=== PATIENT | male | born 1950 | race Caucasian/White ===

== ENCOUNTER 2017-09-02 08:21 | Day surgery (SDC) | payer OTHER ==
[2017-09-02] MEDS ORDERED: NA CHLORIDE 0.9% 1,000 ML ONE (08:40)
[2017-09-02] MEDS ORDERED: PROPOFOL 200 MG/20 ML VIAL IV ONE ×2 (10:16)
[2017-09-02] MEDS ORDERED: LIDOCAINE 1% MPF 2 ML AMPULE ONE (10:16)
--- NOTE | 2017-09-02 12:17 | ENDO RPT ---
[address], [address] COLONOSCOPY PROCEDURE REPORT EXAM DATE: 09/02/2017 PATIENT NAME: Jeff Medeiros MR #: [id number] BIRTHDATE: 1950 ATTENDING: Hank Gallegos DR STATUS: outpatient RECREATION LEADER: Teddy Sharma and Araceli Sage RN INDICATIONS: The patient is a 67 yr old Male here for a colonoscopy due to colon cancer screening PROCEDURE PERFORMED: Colonoscopy with biopsy MEDICATIONS: Per Anesthesia. ESTIMATED BLOOD LOSS: None CONSENT: The patient understands the risks and benefits of the procedure and understands that these risks include, but are not limited to: sedation, allergic reaction, infection, perforation and/or bleeding. Alternative means of evaluation and treatment include, among others: physical exam, x-rays, and/or surgical intervention. The patient elects to proceed with this endoscopic procedure. DESCRIPTION OF PROCEDURE: During intra-op preparation period all mechanical medical equipment was checked for proper function. Hand hygiene and appropriate measures for infection prevention was taken. Procedure, possible complications, alternatives including, but not limited to possibility of bleeding, perforation, tear, infection, sepsis, need for surgery, need for blood transfusion, were explained to the patient. After the risks, benefits and alternatives of the procedure were thoroughly explained, Informed consent was verified, confirmed and timeout was successfully executed by the treatment team. The patient was placed in the left lateral position. A digital rectal exam was performed and revealed internal hemorrhoids. After appropriate level of anesthesia, the scope was passed. The EC-[id number] ([id number]) endoscope was introduced through the anus and advanced to the cecum, which was identified by the ileocecal valve. The quality of the prep was fair. The instrument was then slowly withdrawn as the colon was fully examined. Scope withdrawal time was 10 minutes. COLON FINDINGS: Severe diverticulosis was noted in the sigmoid colon. No bleeding was noted from the diverticulosis. Was found petechiae and in the sigmoid colon. A biopsy was performed using cold forceps. Retroflexed views revealed no abnormalities. The scope was then completely withdrawn from the patient and the procedure terminated. ADVERSE EVENTS: There were no complications. IMPRESSIONS: Severe diverticulosis was noted in the sigmoid colon RECOMMENDATIONS: 1. await biopsy results 2. avoid NSAIDS for 2 weeks 3. follow-up: office 2 week(s) 4. yearly hemoccult starting in 4 years 5. increase dietary water 6. low fiber / diverticular diet RECALL: Return in 5 year(s) for Colonoscopy, pending biopsy results. Hank Gallegos DR eSigned: Hank Gallegos DR 09/02/2017 10:49 AM cc: CPT CODES: ICD9 CODES: PATIENT NAME: Jeff Medeiros MR#: [id number]
== END 2017-09-02 11:17 | disposition home or self-care (01) ==
LOC: OR 08:21
PROVIDERS: ATTEND Surgery
PROC: 0DBE8ZX Excision of Large Intestine, Via Natural or Artificial Opening Endoscopic, Diagnostic (ICD-10-PCS; principal; 2017-09-02 10:30)
DX: Z12.11 Encounter for screening for malignant neoplasm of colon (principal); I10 Essential (primary) hypertension; E11.9 Type 2 diabetes mellitus without complications; Z79.84 Long term (current) use of oral hypoglycemic drugs; E78.00 Pure hypercholesterolemia, unspecified; N40.1 Benign prostatic hyperplasia with lower urinary tract symptoms; K57.30 Diverticulosis of large intestine without perforation or abscess without bleeding
CPT/HCPCS: 45380; 82962; 88305; J2001; J7030

== ENCOUNTER 2019-09-02 10:57 | Emergency (ER) | payer OTHER ==
--- NOTE | 2019-09-02 12:02 | ER ---
Nurse's Notes [facility] Name: Jeff Medeiros Age: 69 yrs Sex: Male : 1950 Arrival Date: 09/02/2019 Time: 11:01 Bed 5 Private MD: Diagnosis: Gastrointestinal hemorrhage, unspecified-UPPER GI BLEED;Type 2 diabetes mellitus Presentation: 09/01 11:00 Chief complaint: EMS states: he started having black stools on Tuesday and today started sv having dizziness and generalized weakness when standing. On EMS arrival, pt stood up and got cool and clammy. 20G L wrist and NS bolus 300 mls given en route. When pt stood up SBP was in the 90s and when laying in their stretcher SBP was 140s. BS-311 BP 127/73 HR-102 SR-AFib, RR-18 98% RA. Coronavirus screen: Patient denies a cough. Patient denies shortness of breath or difficulty breathing. Patient denies measured and/or subjective temperature greater than 100.4F prior to today's visit. Patient denies travel on a cruise ship or to a country the [facility] currently lists as an affected area. Patient denies contact with known and/or suspected case of COVID-19. Proceed with normal triage. Patient instructed to continue to wear a mask when interacting with others. Patient moved to private room, placed in contact and droplet isolation with eye protection until further assessment. Ebola Screen: No symptoms or risks identified at this time. Risk Assessment: Do you want to hurt yourself or someone else? Patient reports no desire to harm self or others. Onset of symptoms was August 31, 2019. 11:00 Method Of Arrival: EMS: [facility] sv 11:00 Acuity: SHARON 2 sv 11:00 Initial Sepsis Screen: Does the patient meet any 2 criteria? HR > 90 bpm. No. Patient's sv initial sepsis screen is negative. Does the patient have a suspected source of infection? No. Patient's initial sepsis screen is negative. Triage Assessment: 11:00 General: Appears in no apparent distress. comfortable, well groomed, well developed, sv Behavior is calm, cooperative, appropriate for age. Neuro: Level of Consciousness is awake, alert, obeys commands, Oriented to person, place, time, situation, Moves all extremities. Full function. Cardiovascular: Patient's skin is warm and dry. Rhythm is sinus tachycardia. Respiratory: Airway is patent Respiratory effort is even, unlabored, Respiratory pattern is regular, symmetrical. GI: Abdomen is round Reports black stools. Derm: Skin is pale. Historical: - Allergies: 11: No Known Allergies; sv - Home Meds: 11:22 Metformin Oral [Active]; losartan oral oral [Active]; rosuvastatin oral oral [Active]; sv - PMHx: 11: Diabetes - NIDDM; sv - Immunization history:: Adult Immunizations. - Family history:: not pertinent. - Social history:: Smoking status: Patient denies any tobacco usage or history of. Screenin:24 Abuse screen: Denies threats or abuse. Denies injuries from another. Nutritional sv screening: No deficits noted. Tuberculosis screening: No symptoms or risk factors identified. Fall Risk None identified. Assessment: 12:30 Reassessment: Patient appears in no apparent distress at this time. No changes from sv previously documented assessment. Patient and/or family updated on plan of care and expected duration. Pain level reassessed. Patient is alert, oriented x 3, equal unlabored respirations, skin warm/dry/pink. 14:00 Reassessment: Patient appears in no apparent distress at this time. No changes from sv previously documented assessment. Patient and/or family updated on plan of care and expected duration. Pain level reassessed. Patient is alert, oriented x 3, equal unlabored respirations, skin warm/dry/pink. 15:36 Reassessment: Patient appears in no apparent distress at this time. No changes from sv previously documented assessment. Patient and/or family updated on plan of care and expected duration. Pain level reassessed. Patient is alert, oriented x 3, equal unlabored respirations, skin warm/dry/pink. 16:12 Reassessment: Patient appears in no apparent distress at this time. No changes from sv previously documented assessment. Patient and/or family updated on plan of care and expected duration. Pain level reassessed. Patient is alert, oriented x 3, equal unlabored respirations, skin warm/dry/pink. Report given to Mateus from EMS. Vital Signs: 11:00 BP 121 / 84; Pulse 102 MON; Resp 16; Temp 98; Pulse Ox 99% on R/A; sv 12:00 BP 131 / 76; Pulse 103 MON; Resp 15; Pulse Ox 100% on R/A; sv 12:45 BP 126 / 71; Pulse 99; Resp 16; Pulse Ox 100% on R/A; sv 13:30 BP 132 / 75; Pulse 96; Resp 16; Pulse Ox 99% on R/A; sv 14:44 BP 128 / 79; Pulse 99 MON; Resp 18; Pulse Ox 99% on R/A; sv 15:36 BP 130 / 73; Pulse 96; Resp 16; Pulse Ox 100% ; sv 11:00 Sinus tachycardia sv 12:00 Sinus tachycardia sv 12:45 Sinus tachycardia sv 13:30 Sinus tachycardia sv 14:44 Sinus Rhythm sv ED Course: 11:00 Maintain EMS IV. Dressing intact. Site clean \T\ dry. Gauge \T\ site: 20G L wrist. sv 11:01 Patient arrived in ED. ss 11:03 Travon Tristan MD is Attending Physician. kris 11:05 EKG done, by ED staff, reviewed by Travon Tristan MD. sv 11:17 Odilia Hong RN is Primary Nurse. sv 11:22 Triage completed. sv 11:23 Arm band placed on. sv 11:23 Patient has correct armband on for positive identification. Placed in gown. Bed in low sv position. Call light in reach. Side rails up X 1. 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 Pulse ox on. NIBP on. Door closed. Head of bed elevated. 11:45 Initial lab(s) drawn, by me, sent to lab. T\T\S collected, blood band applied to patient. sv Inserted saline lock: 18 gauge in right antecubital area, using aseptic technique. Blood collected. Flushed right antecubital with 5 ml normal saline. 12:11 XRAY Chest (1 view) Sent. sv 12:37 XRAY Chest (1 view) In Process Unspecified. EDMS 14:44 transfer approval from receiving facility. sv 15:35 No provider procedures requiring assistance completed. Patient transferred, IV remains sv in place. intact. Administered Medications: 12:32 Drug: ProTONIX 80 mg Route: IVP; Site: left wrist; sv 13:00 Follow up: Response: No adverse reaction sv 12:32 Drug: ProTONIX 8 mg/hr Route: IV; Rate: 25 ml/hr; Site: left wrist; sv 16:13 Follow up: Response: No adverse reaction; IV Status: Infusion continued upon transfer sv 12:32 Drug: NS 0.9% 500 ml Route: IV; Rate: bolus; Site: left wrist; sv 13:00 Follow up: Response: No adverse reaction; IV Status: Completed infusion; IV Intake: sv 500ml 12:32 Drug: NS 0.9% 1000 ml Route: IV; Rate: 125 ml/hr; Site: left wrist; sv 16:13 Follow up: Response: No adverse reaction; IV Status: Infusion continued upon transfer sv 14:00 Drug: Vitamin K1 10 mg Route: Sub-Q; Site: right upper arm; sv 14:30 Follow up: Response: No adverse reaction sv Intake: 13:00 IV: 500ml; Total: 500ml. sv Outcome: 12:01 ER care complete, transfer ordered by . kris 15:35 Transferred by [facility] to [facility], Transfer form completed. sv X-rays sent w/ patient. Note: Report given to Cecilia RIVERS 15:35 Condition: stable 15:35 Instructed on the need for transfer. 16:28 Patient left the ED. sv Signatures: Dispatcher [employer] EDOdilia Clemente RN RN Travon Garcia MD MD cha Smirch, Shelby, RN RN ss Corrections: (The following items were deleted from the chart) 15:35 11:00 BP 121 / 84; Pulse 102bpm; Monitor: Sinus tachycardiaResp 16bpm; Pulse Ox 99% RA; sv sv
--- NOTE | 2019-09-02 12:02 | EDPHYS ---
Physician Documentation [facility] Name: Jeff Medeiros Age: 69 yrs Sex: Male : 1950 Arrival Date: 09/02/2019 Time: 11:01 Bed 5 Private MD: ED Physician Travon Tristan HPI: 09/01 11:53 This 69 yrs old Male presents to ER via EMS with complaints of Rectal kris Bleeding. 11:53 The patient presents to the emergency department with bleeding from the rectum/anus, kris that is moderate. Onset: The symptoms/episode began/occurred 3 day(s) ago. Context: the patient has no known special context relating to the rectal area complaint(s). Modifying factors: The symptoms are alleviated by remaining still, The symptoms are aggravated by movement, sitting position. Associate signs and symptoms: Pertinent positives:. The patient has not experienced similar symptoms in the past. 11:54 The patient presents to the emergency department with rectal bleeding, melena. kris Abdominal pain: none is appreciated. Modifying factors: The symptoms are alleviated by remaining still, supine position, the symptoms are aggravated by movement. The patient presents with dizziness, feeling faint, generalized weakness. Context: occurred at home. Modifying factors: The symptoms are alleviated by lying down, the symptoms are aggravated by standing up. Associated signs and symptoms: Pertinent positives: near-syncope. Severity of symptoms: At their worst the symptoms were moderate in the emergency department the symptoms are unchanged. Associated signs and symptoms: Pertinent positives: dizziness when standing, shortness of breath. Historical: - Allergies: 11:22 No Known Allergies; sv - Home Meds: 11:22 Metformin Oral [Active]; losartan oral oral [Active]; rosuvastatin oral oral [Active]; sv - PMHx: 11:22 Diabetes - NIDDM; sv - Immunization history:: Adult Immunizations. - Family history:: not pertinent. - Social history:: Smoking status: Patient denies any tobacco usage or history of. ROS: 11:56 Constitutional: Negative for fever, chills, and weight loss, Eyes: Negative for injury, kris pain, redness, and discharge, ENT: Negative for injury, pain, and discharge, Neck: Negative for injury, pain, and swelling, Cardiovascular: Negative for chest pain, palpitations, and edema, Respiratory: Negative for shortness of breath, cough, wheezing, and pleuritic chest pain, Back: Negative for injury and pain, : Negative for injury, bleeding, discharge, and swelling, MS/Extremity: Negative for injury and deformity, Skin: Negative for injury, rash, and discoloration, Psych: Negative for depression, anxiety, suicide ideation, homicidal ideation, and hallucinations, Allergy/Immunology: Negative for hives, rash, and allergies, Endocrine: Negative for neck swelling, polydipsia, polyuria, polyphagia, and marked weight changes, Hematologic/Lymphatic: Negative for swollen nodes, abnormal bleeding, and unusual bruising. 11:56 Abdomen/GI: Positive for black/tarry stool. 11:56 Neuro: Positive for dizziness, near syncope, weakness. Exam: 11:56 Constitutional: This is a well developed, well nourished patient who is awake, alert, kris and in no acute distress. Head/Face: Normocephalic, atraumatic. ENT: Nares patent. No nasal discharge, no septal abnormalities noted. Tympanic membranes are normal and external auditory canals are clear. Oropharynx with no redness, swelling, or masses, exudates, or evidence of obstruction, uvula midline. Mucous membranes moist. Neck: Trachea midline, no thyromegaly or masses palpated, and no cervical lymphadenopathy. Supple, full range of motion without nuchal rigidity, or vertebral point tenderness. No Meningismus. Chest/axilla: Normal chest wall appearance and motion. Nontender with no deformity. No lesions are appreciated. Respiratory: Lungs have equal breath sounds bilaterally, clear to auscultation and percussion. No rales, rhonchi or wheezes noted. No increased work of breathing, no retractions or nasal flaring. Back: No spinal tenderness. No costovertebral tenderness. Full range of motion. Male : Normal genitalia with no discharge or lesions. MS/ Extremity: Pulses equal, no cyanosis. Neurovascular intact. Full, normal range of motion. Neuro: Awake and alert, GCS 15, oriented to person, place, time, and situation. Cranial nerves II-XII grossly intact. Motor strength 5/5 in all extremities. Sensory grossly intact. Cerebellar exam normal. Normal gait. Psych: Awake, alert, with orientation to person, place and time. Behavior, mood, and affect are within normal limits. 11:56 Eyes: Conjunctiva: pale, bilaterally. 11:56 Cardiovascular: Rate: tachycardic, Rhythm: regular, Heart sounds: normal, normal S1and S2, no S3 or S4, no murmur, no rub, no gallop, JVD: is not appreciated. 11:56 Abdomen/GI: Inspection: distension, obese Bowel sounds: normal, Palpation: abdomen is soft and non-tender, Rectal exam: Prostate: normal, rectal tone normal, Stool: guaiac positive, black, hemorrhoid(s), are not appreciated, mass, is not appreciated, swelling, is not appreciated, tenderness, is not appreciated, fecal impaction, is not appreciated, the exam is chaperoned by the nurse, Liver: no appreciated palpable abnormalities, Hernia: not appreciated. Vital Signs: 11:00 BP 121 / 84; Pulse 102 MON; Resp 16; Temp 98; Pulse Ox 99% on R/A; sv 12:00 BP 131 / 76; Pulse 103 MON; Resp 15; Pulse Ox 100% on R/A; sv 12:45 BP 126 / 71; Pulse 99; Resp 16; Pulse Ox 100% on R/A; sv 13:30 BP 132 / 75; Pulse 96; Resp 16; Pulse Ox 99% on R/A; sv 14:44 BP 128 / 79; Pulse 99 MON; Resp 18; Pulse Ox 99% on R/A; sv 15:36 BP 130 / 73; Pulse 96; Resp 16; Pulse Ox 100% ; sv 11:00 Sinus tachycardia sv 12:00 Sinus tachycardia sv 12:45 Sinus tachycardia sv 13:30 Sinus tachycardia sv 14:44 Sinus Rhythm sv MDM: 11:03 Patient medically screened. [facility] 11:59 Data reviewed: vital signs, nurses notes, lab test result(s), EKG, radiologic studies, kris plain films. 12:40 Differential diagnosis: gastritis, diverticulitis, hemorrhagic shock, varices. kris Differential diagnosis: generalized weakness, GI bleed, hypovolemia, idiopathic dizziness, near-syncope, syncope. Data interpreted: equipment monitor phototypesetting: rate is 102 beats/min, rhythm is regular, Pulse oximetry: on room air is 99 %. Test interpretation: by ED physician or midlevel provider: ECG, plain radiologic studies. Counseling: I had a detailed discussion with the patient and/or guardian regarding: the historical points, exam findings, and any diagnostic results supporting the discharge/admit diagnosis, the presence of at least one elevated blood pressure reading (>120/80) during this emergency department visit, lab results, radiology results, the need to transfer to another facility, for higher level of care, [facility] does not immediately have the required specialist. ED course: STABLE, WEAK, BLACK STOOLS 3 DAYS, NEAR SYNCOPE. 09/01 11:23 Order name: Basic Metabolic Panel; Complete Time: 12:33 09/01 11:23 Order name: CBC with Diff; Complete Time: 12:33 09/01 11:23 Order name: Hepatic Function; Complete Time: 12:33 09/01 11:23 Order name: Lipase; Complete Time: 12:33 09/01 11:25 Order name: Type And Screen 09/01 11:52 Order name: Magnesium; Complete Time: 13:23 [facility] 09/01 11:52 Order name: NT PRO-BNP; Complete Time: 13:23 [facility] 09/01 11:52 Order name: PT-INR; Complete Time: 12:33 [facility] 09/01 11:52 Order name: Troponin (emerg Dept Use Only); Complete Time: 13:23 [facility] 09/01 11:52 Order name: XRAY Chest (1 view); Complete Time: 13:23 [facility] 09/01 11:59 Order name: Packed RBC Leukored [facility] 09/01 12:46 Order name: ABO/RH no charge; Complete Time: 13:23 [facility] 09/01 15:23 Order name: Occult Blood--Ancillary 09/01 11:23 Order name: IV Saline Lock; Complete Time: 11:25 09/01 11:23 Order name: Labs collected and sent; Complete Time: 12: 09/01 11:52 Order name: EKG; Complete Time: 11:55 [facility] 09/01 11:52 Order name: Cardiac monitoring; Complete Time: 12: [facility] 09/01 11:52 Order name: EKG - Nurse/Tech; Complete Time: 12: [facility] 09/01 11:52 Order name: O2 Per Protocol; Complete Time: 12: [facility] 09/01 11:52 Order name: O2 Sat Monitoring; Complete Time: 12: [facility] 09/01 12:02 Order name: IV Saline Lock - Large Bore; Complete Time: 12:11 [facility] Administered Medications: 12:32 Drug: ProTONIX 80 mg Route: IVP; Site: left wrist; sv 13:00 Follow up: Response: No adverse reaction sv 12:32 Drug: ProTONIX 8 mg/hr Route: IV; Rate: 25 ml/hr; Site: left wrist; sv 16:13 Follow up: Response: No adverse reaction; IV Status: Infusion continued upon transfer sv 12:32 Drug: NS 0.9% 500 ml Route: IV; Rate: bolus; Site: left wrist; sv 13:00 Follow up: Response: No adverse reaction; IV Status: Completed infusion; IV Intake: sv 500ml 12:32 Drug: NS 0.9% 1000 ml Route: IV; Rate: 125 ml/hr; Site: left wrist; sv 16:13 Follow up: Response: No adverse reaction; IV Status: Infusion continued upon transfer sv 14:00 Drug: Vitamin K1 10 mg Route: Sub-Q; Site: right upper arm; sv 14:30 Follow up: Response: No adverse reaction sv Disposition: 09/02/19 12:01 Transfer ordered to [facility]. Diagnosis are Gastrointestinal hemorrhage, unspecified - UPPER GI BLEED, Type 2 diabetes mellitus. - Reason for transfer: Higher level of care. - Accepting physician is TO [facility]. - Condition is Fair. - Problem is new. - Symptoms have improved. Signatures: Dispatcher [employer] Odilia Martinez RN RN sv Anderson, Corey, MD MD cha Corrections: (The following items were deleted from the chart) 16:28 12:01 09/02/2019 12:01 Transfer ordered to [facility]. sv Diagnosis is Gastrointestinal hemorrhage, unspecified - UPPER GI BLEED; Type 2 diabetes mellitus. Reason for transfer: Higher level of care. Accepting physician is TO [facility]. Condition is Fair. Problem is new. Symptoms have improved. kris
[2019-09-02] MEDS ORDERED: PANTOPRAZOLE 40 MG INJ ONE (12:13)
[2019-09-02] MEDS ORDERED: NA CHLORIDE 0.9% 1,000 ML ONE (12:13)
[2019-09-02 12:21] LABS: Absolute Lymphocytes (CBC) 2.2 K/uL (0.7-4.9); Basophils % 0.3 % (0-1.3); Hematocrit 27.1 % (39.6-49.0); Lymphocytes % 18.6 % (15.3-44.8); MPV 9.1 fL (7.6-11.3); Protime INR 1.13; RBC Red Blood Cell Count 3.02 M/uL (4.33-5.43)
[2019-09-02 12:32] LABS: ALT/SGPT 36 U/L (12-78); AST/SGOT 10 U/L (15-37); Albumin 3.4 g/dL (3.4-5.0); Alkaline Phosphatase 61 U/L (45-117); BUN Blood Urea Nitrogen 62 mg/dL (7-18); Bicarbonate 22 mmol/L (21-32); Bilirubin Direct < 0.1 mg/dL (0-0.2); Bilirubin Total 0.2 mg/dL (0.2-1.0); Glucose Level 313 mg/dL (74-106); Lipase 54 U/L (73-393); Potassium 4.1 mmol/L (3.5-5.1); Protein, Total 6.2 g/dL (6.4-8.2); Sodium Level 140 mmol/L (136-145)
[2019-09-02 12:35] LABS: Magnesium 2.3 mg/dL (1.8-2.4); Troponin (Emerg Dept Use Only) 0.02 ng/mL (0.0-0.045)
--- NOTE | 2019-09-02 12:41 | RAD REPORT ---
EXAM DESCRIPTION: RAD - Chest Single View - 09/02/2019 12:31 pm CLINICAL HISTORY: COUGH Chest pain. COMPARISON: No comparisons FINDINGS: Portable technique limits examination quality. The lungs are grossly clear. The heart is normal in size. No displaced fractures. IMPRESSION: No acute intrathoracic process suspected.
[2019-09-02] MEDS ORDERED: PANTOPRAZOLE INJ 80 MG in NA CHLORIDE 0.9% 250 ML IV SCH (13:00)
[2019-09-02] MEDS ORDERED: VITAMIN K (ADULT) 10 MG/ML ONE (14:04)
[2019-09-02 16:59] VITALS: TEMP 98
[2019-09-02 17:05] VITALS: BP 130/73; O2SAT 100
== END 2019-09-02 16:28 | disposition short-term general hospital (02) ==
LOC: ER 10:57
DX: K92.2 Gastrointestinal hemorrhage, unspecified (principal); E11.9 Type 2 diabetes mellitus without complications
CPT/HCPCS: 96365; 93005; 85025; 80048; 36415; 86900; 83735; 86850; 85610; 86901; 80076; 82272; 84484; 83690; 83880; 71045; 96372; 99285; 96366; J3430; C9113; J7050; J7030

== ENCOUNTER 2020-06-09 12:33 | Observation (INO) | payer OTHER ==
--- OUTSIDE RECORDS SUMMARY | 2020-06-09 12:37 | XMS REPORT | Continuity of Care Document ---
:1950 Author Organization [facility] t Address [facility] Maria. [address] [place] [id number] Care Team Providers Name Role Phone Romel Coy Primary Care Physician Brigitte Taylor MD Attending Clinician Rufus MERRILL Attending Clinician Fausto MERRILL Attending Clinician Anegla Hernandez MD Attending Clinician Julio Morales MD Attending Clinician Arnol MERRILL, Arnol Loyd Attending Clinician Bethany Scott MD Attending Clinician Angel Pizarro MD Attending Clinician BRIGITTE TAYLOR Attending Clinician Unavailable RUFUS Admitting Clinician Unavailable Payers Payer Name Policy Type Policy Effective Date Expiration Date Sour ce Number MEDICAREMEDICARE A [id number] 2017 DIANE Molina [id number] 2017-P 00:00:00 - [facility] [id number] 2019 DIANE Li SUPPLEMENT/INDIVIDUALG 00:00:00 - Medical [facility] MEDICARE Center [id number]/2019-PresentMedigap Problems Condition Condition Condition Status Onset Resolution Last Treating Co mments Source Name Details Category Date Date Treatment Clinician Date GIB GIB Disease Active DIANE Diez (gastroint (gastroint 7-19 [place] [facility] - estinal estinal 00:00: Medical bleeding) bleeding) 00 Cent er Type 2 Type 2 Disease Active [facility] diabetes diabetes 09-01 [facility] - mellitus mellitus 00:00: Medica l without without 00 Center complicati complicati on, on, without without long-term long-term current current use of use of insulin insulin Essential Essential Disease Active [facility] hypert[facility]i hypertensi 09-01 [place] [facility] - on on 00:00: Medical 00 Center Coronary Coronary Disease Active [facility] artery artery 09[facility]01 [facility] - disease disease 00:00: Medical involving involving 00 [facility] [place] coronary coronary artery of artery of [place] heart heart without without angina angina pectoris pectoris Allergies, Adverse Reactions, Alerts Allergy Allergy Status Severity Reaction(s) Onset Inactive Treating Comm ents Source Name Type Date Date Clinician Tramadol Propensi Active Anxiety [facility] ty to [facility]01 [facility] - adverse 00:00: Medical reaction 00 Center s Social History Social Habit Start Date Stop Date Quantity Comments Source Sex Assigned At [facility] Tobacco use and 2019-09-04 2019-09-04 Never used [facility] - exposure 00:00:00 00:00:00 [facility] Alcohol intake 2019-09-04 2019-09-04 Current drinker [facility] S oswald [facility] - 00:00:00 00:00:00 of alcohol [facility] Center (finding) Smoking Status Start Date Stop Date Source Former smoker 2019-09-04 00:00:00 2019-09-04 00:00:00 [facility] Medications Ordered Filled Start Stop Current Ordering Indication Dosage Frequency Signature Comments Components Source Medication Medication Date Date Medication? Clinician (SIG) Name Name aspirin 81 Yes 81mg QD Take [address] MG EC 7-22 by mouth [facility] - tablet 12:57: daily. Medical 11 [place] metFORMIN Yes 1000mg Take 1,[address] (GLUCOPHAGE 7-22 mg by [facility]ukes - ) 1000 MG 12:57: mouth Medical tablet 11 daily with Center dinner. losartan Yes 100mg QD Take [address] (COZAAR) 7-22 mg by [facility] - 100 MG 12:57: mouth Medical tablet 11 daily. [place] rosuvastati Yes 10mg QD Take [address] n (CRESTOR) 7-22 by mouth Luke s - 10 MG 12:57: daily. Medical tablet 11 [place] acetaminoph 2020-0 Yes 1{tbl} Take [address] en-codeine 7-22 tablet by Luke s - (TYLENOL 12:57: mouth Medical #3) 300-30 11 every 6 Center mg per (six) tablet hours as needed for Pain (back pain). diphenhydrA 2020-0 Yes insomnia 1{tbl} Take 1 [facility] MINE-acetam 7-22 tablet by Norma es - inophen 12:57: mouth Medical (TYLENOL 11 every Center PM) 25-500 night as mg Tab needed. b complex 2020-0 Yes 1{tbl} QD Take 1 [facility] vitamins 7-22 tablet by [facility] - tablet 12:57: mouth Medical 11 daily. [place] omega-3 2020-0 Yes 2g QD Take 2 g [facility] fatty 7-22 by mouth [facility] - acids-fish 12:57: daily. Medic al oil 11 [place] 340-1,000 mg Cap per capsule cholecalcif 2019-0 Yes 5000U QD Take 5,000 [facility] louisa, 7-22 Units by [facility] - vitamin D3, 12:57: mouth Medic al 125 mcg 11 daily. [place] (5,000 unit) Tab pantoprazol 0 2020- No 40mg Q.5D Take 1 [facility] e 7-22 08-21 tablet (40 [facility] - (PROTONIX) 00:00: 23:59 mg total) M edical 40 MG 00 :00 by mouth 2 Center tablet (two) times daily for 30 days. Vital Signs Vital Name Observation Time Observation Value Comments Source Systolic blood 2019-09-05 11:49:00 152 mm[Hg] [facility] pressure [facility] Diastolic blood 2019-09-05 11:49:00 57 mm[Hg] [facility] t [facility] Heart rate 2019-09-05 11:49:00 84 /min [facility] L [facility] Respiratory rate 2019-09-05 11:49:00 18 /min [facility] Oxygen saturation in 2019-09-05 11:49:00 98 /min [facility] - Arterial blood by Medical Ce nter Pulse oximetry Body temperature 2019-09-05 07:53:00 37.22 Fariba [facility] Body height 2019-09-02 17:58:00 177.8 cm [facility] Body weight 2019-09-02 17:58:00 108.863 kg [facility] BMI 2019-09-02 17:58:00 34.44 kg/m2 [facility] Procedures Procedure Date / Time Performed Performing Clinician Agueda e RHYTHM STRIP - SCAN 2019-09-07 15:40:27 Provider, Default [facility] RHYTHM STRIP - SCAN 2019-09-07 14:52:11 Provider, [facility] TRANSFUSION SERVICE 2019-09-06 18:03:47 Provider, [facility] - REPORT - SCAN Scanning [facility] REPORT OF PROCEDURE - 2019-09-06 15:21:05 Provider, [facility] ENDOSCOPY SCAN [facility] RHYTHM STRIP - SCAN 2019-09-06 15:20:51 Provider, [facility] PREPARE LEUKO-REDUCED RBC 2019-09-05 23:54:00 Antonino Lambert [facility] TRANSFUSION SERVICE 2019-09-05 18:04:39 Provider, [facility] REPORT - SCAN [facility] REPORT OF PROCEDURE - 2019-09-05 13:20:53 Alok garcia [facility] ENDOSCOPY [facility] POCT-GLUCOSE METER 2019-09-05 11:53:00 Antonino Lambert [facility] POCT-GLUCOSE METER 2019-09-05 08:04:00 Antonino Lambert [facility] TYPE AND SCREEN, 2019-09-05 04:06:[address] [facility] s AUTOMATED [facility] CBC W/PLT COUNT & AUTO 2019-09-05 04:06:00 DIANE Hooper [facility] BASIC METABOLIC PANEL (7) 2019-09-05 04:06:00 IGNACIO Hooper I [facility] PREPARE LEUKO-REDUCED RBC 2019-09-04 23:54:00 IGNACIO Hooper I [facility] POCT-GLUCOSE METER 2019-09-04 21:27:00 Antonino Lambert [facility] HEMOGLOBIN AND HEMATOCRIT 2019-09-04 19:26:00 Antonino Lambert [facility] TRANSFUSION SERVICE 2019-09-04 18:13:33 Provider, Default [facility] - REPORT - SCAN [facility] UPPER 2019-09-04 17:14:00 Alok Ambrose [facility] - ENDOSCOPY,ULTRASOUND [facility] ter POCT-GLUCOSE METER 2019-09-04 16:12:00 Antonino Lambert [facility] TRANSFUSE LEUKO-REDUCED 2019-09-04 14:35:47 Rufus [facility] - RED BLOOD CELLS [facility] POCT-GLUCOSE METER 2019-09-04 12:12:00 Antonino Lambert [facility] POCT-GLUCOSE METER 2019-09-04 08:00:00 Antonino Lambert [facility] CBC W/PLT COUNT & AUTO 2019-09-04 06:08:00 DIANE Hooper S t rosibel - DIFFERENTIAL [facility] BASIC METABOLIC PANEL (7) 2019-09-04 06:08:00 IGNACIO Hooper I [facility] CT ABDOMEN/PELVIS WITH IV 2019-09-04 03:53:00 Veronica Mccloud [facility] POCT-GLUCOSE METER 2019-09-04 01:02:00 Antonino Lambert [facility] REPORT OF PROCEDURE - 2019-09-03 18:05:44 Karen Scott [facility] ENDOSCOPY [facility] TRANSFUSION SERVICE 2019-09-03 18:02:07 Provider, Default [facility] - REPORT - SCAN [facility] HEMOGLOBIN AND HEMATOCRIT 2019-09-03 14:23:00 Antonino Lambert [facility] POCT-GLUCOSE METER 2019-09-03 13:56:00 Antonino Lambert [facility] UPPER ENDOSCOPY,BIOPSY 2019-09-03 13:11:00 Karen Scott [facility] CBC W/PLT COUNT & AUTO 2019-09-03 05:50:00 [facility] t [facility] - DIFFERENTIAL [facility] BASIC METABOLIC PANEL (7) 2019-09-03 05:50:00 IGNACIO Hooper I [facility] ABORH, MANUAL 2019-09-03 00:42:00 Arnaldo Betty Dora [facility] HEMOGLOBIN A1C 2019-09-03 00:42:00 [facility] POCT-[facility]SE METER 2019-09-02 23:52:00 [facility] TYPE AND SCREEN, 2019-09-02 22:46:[address] [facility] s AUTOMATED [facility] CBC W/PLT COUNT & AUTO 2019-09-02 22:46:00 LizbethSophia [facility] t [facility] - DIFFERENTIAL [facility] COMPREHENSIVE METABOLIC 2019-09-02 22:46:00 [facility] PANEL [facility] PROTHROMBIN TIME/INR 2019-09-02 22:46:00 [facility] MAGNESIUM 2019-09-02 22:46:00 [facility] TROPONIN I 2019-09-02 22:46:00 [facility] B-TYPE NATRIURETIC FACTOR 2019-09-02 22:46:00 Rufus Kenroy [facility] (BNP) [facility] SARS-COV2/RT-PCR ([facility] & 2019-09-02 19:23:00 Tammy Taylor C [facility] - REF LABS) [facility] Plan of Care Planned Activity Planned Date Details Comments Source Future Scheduled 2020-03-[address] [place] [facility] - Test 00:00:00 [facility] (procedure) [code = 90663816] Future Scheduled 2019-10-16 INFLUENZA VACCINE (#1) [facility] - Test 00:00:00 [code = INFLUENZA Medical Ce nter VACCINE (#1)] Future Scheduled 2018-05-[address] [facility] - Test 00:00:00 WELLNESS (YEAR 2 or Medical Center FIRST YEAR if no IPPE) [code = MEDICARE ANNUAL WELLNESS (YEAR 2 or FIRST YEAR if no IPPE)] Future Scheduled 2017 PNEUMOCOCCAL 65+ YRS [facility] - Test 00:00:00 (1 of 1 - Medical Center [id number] PCV13) [code = PNEUMOCOCCAL 65+ YRS (1 of 1 - [id number] PCV13)] Future Scheduled 1962 DIABETIC EYE EXAM [facility] - Test 00:00:00 [code = DIABETIC EYE Medical Center EXAM] Future Scheduled [address] [facility] - Test 00:00:00 examination Medical Center (regime/therapy) [code = 025195457] Future Scheduled 1962 Urine screening for [facility] - Test 00:00:00 protein (procedure) Medical Center [code = 238416448] Future Scheduled [address] - Test 00:00:00 malignant neoplasm of [facility] colon (procedure) [code = 761471459] Results Test Description Test Time Test Comments Results Result Comments Source Prepare Leuko-Red RBC 2019-09-05 23:54:00 Test Item Value Reference Range Interpretation Comme nts CROSSMATCH (test code = 2264) COMPATIBLE Unit ABO (test code = 6526955) A Pos UNIT NUMBER (test code = 934-0) [id number] Status (test code = 2378762) [place]_TIMEINCHART Blood Bank Product (test code = 2263) RED BLOOD CELLS PRODUCT CODE (test code = 933-2) [id number] [facility] [id number] 12:04:00 Test Item Value Reference Range Interpretation Comments POC-Glucose Meter (test 223 mg/dL 70-110 H : TE STED AT [facility] code = 1538) [address] [place], [address]: Assistant Branch Manager/Techni sree ID = [id number] for FAISAL BREEN Lab Interpretation (test Abnormal code = 84961-8) [facility] [id number] 12:04:00 Test Item Value Reference Range Interpretation Comments POC-GLUCOSE METER 223 mg/dL 70-110 H : TESTED A T [facility] 6720 (BEAKER) (test code = [place] [address], 1538) [address]: Assistant Branch Manager/Techni sree ID = [id number] for FAISAL MONDRAGON POCT-GLUCOSE [id number] 08:15:00 Test Item Value Reference Range Interpretation Comments POC-GLUCOSE METER 141 mg/dL 70-110 H : TESTED A T [facility] 6720 (BEAKER) (test code = TOMI [facility], 1538) [address]: Assistant Branch Manager/Techni sree ID = [id number] for NG JENNIFER, YAMILETH CBC with platelet count + automated [id number] 05:50:00 Test Item Value Reference Range Interpretation Comments WBC (test code = 6690-2) 5.7 See_Comment [A utomated message] The system [employer] generated this result transmitted ref erence range: 3.5 - 10 .5 K/L. The refe rence range was not u sed to interpret this result as normal/abnor mal. RBC (test code = 789-8) 2.46 See_Comment L [Au tomated message] The system [employer] generated this result transmitted ref erence range: 4.63 - 6 .08 M/L. The refe rence range was not u sed to interpret this result as normal/abnor mal. MCHC (test code = 786-4) 33.9 See_Comment L [A utomated message] The system [employer] generated this result transmitted ref erence range: 32.3 - 3 6.5 GM/DL. The refe rence range was not u sed to interpret this result as normal/abnor mal. Hematocrit (test code = 22.4 % 40.1-51 L 4544-3) MCV (test code = 787-2) 91.1 fL 79-92.2 MCH (test code = 785-6) 30.9 pg 25.7-32.2 RDW (test code = 788-0) 14.3 % 11.6-14.4 Platelets (test code = 145 See_Comment L [Aut omated message] 777-3) The system [employer] generated this result transmitted ref erence range: 150 - 45 0 K/CU MM. The referen ce range was not u sed to interpret this result as normal/abnor mal. MPV (test code = 10.5 fL 9.4-12.4 35818-8) nRBC (test code = 413) 1 See_Comment H [Aut omated message] The system [employer] generated this result transmitted ref erence range: 0 - 0 /1 00 WBC. The refere nce range was not u sed to interpret this result as normal/abnor mal. % Neutros (test code = 60 % 429) % Lymphs (test code = 27 % 430) % Monos (test code = 8 % 431) % Eos (test code = 432) 4 % % Baso (test code = 437) 0 % # Neutros (test code = 3.39 See_Comment [Aut omated message] 670) The system [employer] generated this result transmitted ref erence range: 1.78 - 5 .38 K/L. The refe rence range was not u sed to interpret this result as normal/abnor mal. # Lymphs (test code = 1.52 See_Comment [Auto mated message] 414) The system [employer] generated this result transmitted ref erence range: 1.32 - 3 .57 K/L. The refe rence range was not u sed to interpret this result as normal/abnor mal. # Monos (test code = 0.43 See_Comment [Autom ated message] 415) The system [employer] generated this result transmitted ref erence range: 0.30 - 0 .82 K/L. The refe rence range was not u sed to interpret this result as normal/abnor mal. # Eos (test code = 416) 0.25 See_Comment [Au tomated message] The system [employer] generated this result transmitted ref erence range: 0.04 - 0 .54 K/L. The refe rence range was not u sed to interpret this result as normal/abnor mal. # Baso (test code = 417) 0.02 See_Comment [A utomated message] The system [employer] generated this result transmitted ref erence range: 0.01 - 0 .08 K/L. The refe rence range was not u sed to interpret this result as normal/abnor mal. Immature 1 % 0-1 Granulocytes-Relative (test code = 2801) Lab Interpretation (test Abnormal code = 95902-2) [facility] W/PLT COUNT & AUTO [id number] 05:50:00 Test Item Value Reference Range Interpretation Comments WHITE BLOOD CELL COUNT (BEAKER) 5.7 K/ L 3.5-10.5 (test code = 775) RED BLOOD CELL COUNT (BEAKER) 2.46 M/ L 4.63-6.08 L (test code = 761) HEMOGLOBIN (BEAKER) (test code = 7.6 GM/DL 13.7-17.5 L 410) HEMATOCRIT (BEAKER) (test code = 22.4 % 40.1-51.0 L 411) MEAN CORPUSCULAR VOLUME (BEAKER) 91.1 fL 79.0-92.2 (test code = 753) MEAN CORPUSCULAR HEMOGLOBIN 30.9 pg 25.7-32.2 (BEAKER) (test code = 751) MEAN CORPUSCULAR HEMOGLOBIN CONC 33.9 GM/DL 32.3-36.5 (BEAKER) (test code = 752) RED CELL DISTRIBUTION WIDTH 14.3 % 11.6-14.4 (BEAKER) (test code = 412) PLATELET COUNT (BEAKER) (test 145 K/CU MM 150-450 L code = 756) MEAN PLATELET VOLUME (BEAKER) 10.5 fL 9.4-12.4 (test code = 754) NUCLEATED RED BLOOD CELLS 1 /100 WBC 0-0 H (BEAKER) (test code = 413) NEUTROPHILS RELATIVE PERCENT 60 % (BEAKER) (test code = 429) LYMPHOCYTES RELATIVE PERCENT 27 % (BEAKER) (test code = 430) MONOCYTES RELATIVE PERCENT 8 % (BEAKER) (test code = 431) EOSINOPHILS RELATIVE PERCENT 4 % (BEAKER) (test code = 432) BASOPHILS RELATIVE PERCENT 0 % (BEAKER) (test code = 437) NEUTROPHILS ABSOLUTE COUNT 3.39 K/ L 1.78-5.38 (BEAKER) (test code = 670) LYMPHOCYTES ABSOLUTE COUNT 1.52 K/ L 1.32-3.57 (BEAKER) (test code = 414) MONOCYTES ABSOLUTE COUNT (BEAKER) 0.43 K/ L 0.30-0.82 (test code = 415) EOSINOPHILS ABSOLUTE COUNT 0.25 K/ L 0.04-0.54 (BEAKER) (test code = 416) BASOPHILS ABSOLUTE COUNT (BEAKER) 0.02 K/ L 0.01-0.08 (test code = 417) IMMATURE GRANULOCYTES-RELATIVE 1 % 0-1 PERCENT (BEAKER) (test code = 2801) Type and screen, [id number] 05:41:00 Test Item Value Reference Range Interpretation Comments ABO/RH AUTOMATED (BEAKER) (test A POSITIVE code = 2260) Ab Scrn (test code = 890-4) NEGATIVE [facility] Metabolic [id number] 05:18:00 Test Item Value Reference Range Interpretation Comments Sodium (test code = 141 meq/L 918-456 6248-2) Potassium (test code = 3.5 meq/L 3.5-5.1 2823-3) Chloride (test code = 110 meq/L 98-107 H 2075-0) CO2 (test code = 25 meq/L 22-29 2028-9) BUN (test code = 17 mg/dL 7-21 3094-0) Creatinine (test code 0.71 mg/dL 0.57-1.25 = 2160-0) Glucose (test code = 179 mg/dL 70-105 H 2345-7) Calcium (test code = 7.8 mg/dL 8.4-10.2 L 42228-8) EGFR (test code = 111 mL/min/1[place] [address]-9) NOT ACCURATE CREATININE CLEARANCE IN PREDICTING GLOMERULAR FILTRATION RATE . ESTIMATED GFR I S NOT APPLICABLE FOR DIALYSIS PATIENTS. IZABEL (test code = IZABEL) Assistant Branch Manager ID - [id number] Lab Interpretation Abnormal (test code = 20428-5) [facility] METABOLIC [id number] 05:18:00 Test Item Value Reference Range Interpretation Comments SODIUM (BEAKER) 141 meq/L 136-145 (test code = 381) POTASSIUM (BEAKER) 3.5 meq/L 3.5-5.1 (test code = 379) CHLORIDE (BEAKER) 110 meq/L 98-107 H (test code = 382) CO2 (BEAKER) (test 25 meq/L 22-29 code = 355) BLOOD UREA NITROGEN 17 mg/dL 7-21 (BEAKER) (test code = 354) CREATININE (BEAKER) 0.71 mg/dL 0.57-1.25 (test code = 358) GLUCOSE RANDOM 179 mg/dL 70-105 H (BEAKER) (test code = 652) CALCIUM (BEAKER) 7.8 mg/dL 8.4-10.2 L (test code = 697) EGFR (BEAKER) (test 111 mL/min/1.73 ESTIM ATED GFR IS code = 1092) sq m NOT ACCURATE CREATININE CLEARANCE IN PREDICTING GLOMERULAR FILTRATION RATE . ESTIMATED GFR I S NOT APPLICABLE FOR DIALYSIS PATIEN TS. Assistant Branch Manager ID - EDASIPOCT-GLUCOSE [id number] 21:38:00 Test Item Value Reference Range Interpretation Comments POC-GLUCOSE METER 116 mg/dL 70-110 H : TESTED A T [facility] 6720 (BEAKER) (test code = [facility] [employer] [facility], 1538) [address]: Assistant Branch Manager/Techni sree ID = [id number] for SONAM IQBAL TTE Hemoglobin and [id number] 19:34:00 Test Item Value Reference Range Interpretation Comments Hemoglobin (test code 7.9 See_Comment L [Auto mated = 786-4) message] The system which generated this result transmit ron reference range : 13.7 - 17.5 GM/ DL. The reference range was not u sed to interpret th is result as normal/abnormal . Hematocrit (test code 23.2 % 40.1-51 L = 4544-3) IZABEL (test code = IZABEL) Assistant Branch Manager ID - [id number] Lab Interpretation Abnormal (test code = 45222-2) [facility]MO[facility] AND [id number] 19:34:00 Test Item Value Reference Range Interpretation Comments HEMOGLOBIN (BEAKER) (test code = 7.9 GM/DL 13.7-17.5 L 410) HEMATOCRIT (BEAKER) (test code = 23.2 % 40.1-51.0 L 411) Assistant Branch Manager ID - [id number]-GLUCOSE [id number] 16:23:00 Test Item Value Reference Range Interpretation Comments POC-GLUCOSE METER 140 mg/dL 70-110 H : TESTED A T [facility] 6720 (BEAKER) (test code = [facility] [employer] [facility], 1538) 811[address]: Assistant Branch Manager/Techni sree ID = [id number] for CRISTY YUSUF POCT-GLUCOSE [id number] 12:22:00 Test Item Value Reference Range Interpretation Comments POC-GLUCOSE METER 154 mg/dL 70-110 H : TESTED A Oswald [facility] 6720 (ANIBAL) (test code = [place], 1538) 615[address]: Assistant Branch Manager/Techni sree ID = [id number] for COLLEEN ARAGON CT, [id number] 10:48:00FINAL REPORT TECHNIQUE: CT of the abdomen and pelvis WITH intravenous contrast and WITHOUT oral contrast. Dose modulation, iterative reconstruction, and/or weight-based adjustment of the mA/kV was utilized to reduce the radiation dose to as low as reasonably achievable. INDICATION: GI bleedabnormal gastric submucosal lesion on EGD, evaluate for other abnormal abdominal pathology. COMPARISON: None. FINDINGS: LOWER THORAX: A right middle lobe pulmonary nodule measures 0.4 cm onaxial image 1. A left lower lobe or nodule on coronal image 59 measures 0.4 cm. A left lower lobe point nodule on coronal image 65 measures 0.3 cm. No routine follow-up imaging is recommended. HEPATOBILIARY: No focal hepatic lesions. Gallbladder is unremarkable. No biliary ductal dilatation.SPLEEN: Nosplenomegaly.PANCREAS: No focal masses or ductal dilatation. ADRENALS: A left adrenal nodule measures 1.9 cm.KIDNEYS/URETERS: No hydronephrosis, stones, or masses. Left lower pole some renal cyst measures up to 2.17 m. No routine follow-up imaging is recommended.PELVIC ORGANS/BLADDER: Unremarkable. PERITONEUM/RETROPERITONEUM: No free air or fluid.LYMPH NODES: No lymphadenopathy.VESSELS: Mild aortoiliac calcification. GI TRACT: There is either surgical or endoscopic material near the gastroesophagealjunction, likely due to a prior fundoplication. A questionable rounded area has fluid density internally and measures 2.6 cm. Severe diverticulosis of the sigmoid colon. The appendix is normal. BONES AND SOFT TISSUES: A right iliac bone sclerotic lesion as a nurse in the transition, appears nonaggressive, and measures 1 cm. This is most consistent with a bone island. Moderate degenerative disc changes of the lumbar spine. IMPRESSION: 1.Prior fundoplication. A rounded area adjacent to the fundoplication has a cystic density and measures 2.6 cm. This could be a portion of the known submucosal mass. 2.A left adrenal nodule measures 1.9 cm and is probably an adenoma. Follow-up CT of the abdomen with and without intravenous contrast, adrenal mass protocol, is recommended in one year to document stability. Signed: Lorenzo Winter MDReport Verified Date/Time: 09/04/2019 10:48:51 Reading Location: [facility] C013X Ortho Consult Reading Room CT abdomen/pelvis with IV contrast 2019-09-04 10:48:00Interface, External Ris In - 09/04/2019 10:51 AM CDTFINAL REPORT TECHNIQUE: CT of the abdomen and pelvis WITH intravenous contrast and WITHOUT oral contrast. Dose modulation, iterative reconstruction, and/or weight-based adjustment of the mA/kV was utilized to reduce the radiation dose to as low as reasonably achievable. INDICATION: GI bleedabnormal gastric submucosal lesion onEGD, evaluate for other abnormal abdominal pathology. COMPARISON: None. FINDINGS: LOWER THORAX: A right middle lobe pulmonary nodule measures 0.4 cm on axial image 1. A left lower lobe or nodule on coronal image 59 measures 0.4 cm. A left lower lobe point nodule on coronal image 65 measures 0.3 cm. No routine follow-up imaging is recommended. HEPATOBILIARY: No focal hepatic lesions. Gallbladder is unremarkable. No biliary ductal dilatation.SPLEEN: No splenomegaly.PANCREAS: No focal masses or ductal dilatation. ADRENALS: A left adrenal nodule measures 1.9 cm.KIDNEYS/URETERS: No hydronephrosis, stones, or masses. Left lower pole some renal cyst measures up to 2.17 m. No routine follow-up imaging isrecommended.PELVIC ORGANS/BLADDER: Unremarkable. PERITONEUM/RETROPERITONEUM: No free air or fluid.LYMPH NODES: No lymphadenopathy.VESSELS: Mild aortoiliac calcification. GI TRACT: There is either surgical or endoscopic material near the gastroesophageal junction, likely due to a prior fundoplication. A questionable rounded area has fluid density internally and measures 2.6 cm. Severe diverticulosis of the sigmoid colon. The appendix is normal. BONES AND SOFT TISSUES: A right iliac bone sclerotic lesion as a nurse in the transition, appears nonaggressive, and measures 1 cm. This is most consistent with a bone island. Moderate degenerative disc changes of the lumbar spine. IMPRESSION: 1.Prior fundoplication. A rounded area adjacent to the fundoplication has a cystic density and measures 2.6 cm. This could be a portion of the known submucosal mass. 2.A left adrenal nodule measures 1.9 cm and is probably an adenoma. Follow-up CT of the abdomen with and without intravenous contrast, adrenal mass protocol, is recommended in one year to document stability. Signed: Lorenzo Winter MDReport Verified Date/Time: 09/04/2019 10:48:51 Reading Location: [address] Ortho Consult Reading [facility] [id number] 08:11:00 Test Item Value Reference Range Interpretation Comments POC-GLUCOSE METER 152 mg/dL 70-110 H : TESTED A T [facility] 6720 (BEAKER) (test code = [facility] [place], 1538) [address]: Assistant Branch Manager/Techni sree ID = [id number] for COLLEEN ARAGON BASIC METABOLIC [id number] 07:32:00 Test Item Value Reference Range Interpretation Comments SODIUM (BEAKER) 139 meq/L 136-145 (test code = 381) POTASSIUM (BEAKER) 3.5 meq/L 3.5-5.1 (test code = 379) CHLORIDE (BEAKER) 111 meq/L 98-107 H (test code = 382) CO2 (BEAKER) (test 25 meq/L 22-29 code = 355) BLOOD UREA NITROGEN 19 mg/dL 7-21 (BEAKER) (test code = 354) CREATININE (BEAKER) 0.73 mg/dL 0.57-1.25 (test code = 358) GLUCOSE RANDOM 163 mg/dL 70-105 H (BEAKER) (test code = 652) CALCIUM (BEAKER) 7.6 mg/dL 8.4-10.2 L (test code = 697) EGFR (BEAKER) (test 107 mL/min/1.73 ESTIM ATED GFR IS code = 1092) sq m NOT ACCURATE CREATININE CLEARANCE IN PREDICTING GLOMERULAR FILTRATION RATE . ESTIMATED GFR I S NOT APPLICABLE FOR DIALYSIS PATIEN TS. Assistant Branch Manager ID - LMCBC W/PLT COUNT & AUTO [id number] 07:10:00 Test Item Value Reference Range Interpretation Comments WHITE BLOOD CELL COUNT (BEAKER) 6.5 K/ L 3.5-10.5 (test code = 775) RED BLOOD CELL COUNT (BEAKER) 2.13 M/ L 4.63-6.08 L (test code = 761) HEMOGLOBIN (BEAKER) (test code = 6.6 GM/DL 13.7-17.5 L 410) HEMATOCRIT (BEAKER) (test code = 19.6 % 40.1-51.0 L 411) MEAN CORPUSCULAR VOLUME (BEAKER) 92.0 fL 79.0-92.2 (test code = 753) MEAN CORPUSCULAR HEMOGLOBIN 31.0 pg 25.7-32.2 (BEAKER) (test code = 751) MEAN CORPUSCULAR HEMOGLOBIN CONC 33.7 GM/DL 32.3-36.5 (BEAKER) (test code = 752) RED CELL DISTRIBUTION WIDTH 14.8 % 11.6-14.4 H (BEAKER) (test code = 412) PLATELET COUNT (BEAKER) (test 141 K/CU MM 150-450 L code = 756) MEAN PLATELET VOLUME (BEAKER) 10.1 fL 9.4-12.4 (test code = 754) NUCLEATED RED BLOOD CELLS 0 /100 WBC 0-0 (BEAKER) (test code = 413) NEUTROPHILS RELATIVE PERCENT 42 % (BEAKER) (test code = 429) LYMPHOCYTES RELATIVE PERCENT 47 % (BEAKER) (test code = 430) MONOCYTES RELATIVE PERCENT 7 % (BEAKER) (test code = 431) EOSINOPHILS RELATIVE PERCENT 2 % (BEAKER) (test code = 432) BASOPHILS RELATIVE PERCENT 1 % (BEAKER) (test code = 437) NEUTROPHILS ABSOLUTE COUNT 2.70 K/ L 1.78-5.38 (BEAKER) (test code = 670) LYMPHOCYTES ABSOLUTE COUNT 3.03 K/ L 1.32-3.57 (BEAKER) (test code = 414) MONOCYTES ABSOLUTE COUNT (BEAKER) 0.46 K/ L 0.30-0.82 (test code = 415) EOSINOPHILS ABSOLUTE COUNT 0.14 K/ L 0.04-0.54 (BEAKER) (test code = 416) BASOPHILS ABSOLUTE COUNT (BEAKER) 0.03 K/ L 0.01-0.08 (test code = 417) IMMATURE GRANULOCYTES-RELATIVE 1 % 0-1 PERCENT (BEAKER) (test code = 2801) POCT-GLUCOSE [id number] 01:13:00 Test Item Value Reference Range Interpretation Comments POC-GLUCOSE METER 118 mg/dL 70-110 H : TESTED A T B[facility] 6720 (BEAKER) (test code = TOM[facility], 1538) 49975: Assistant Branch Manager/Techni sree ID = [id number] for SONAM IQBAL TTVinny HEMOGLOBIN AND [id number] 14:34:00 Test Item Value Reference Range Interpretation Comments HEMOGLOBIN (BEAKER) (test code = 7.2 GM/DL 13.7-17.5 L 410) HEMATOCRIT (BEAKER) (test code = 21.3 % 40.1-51.0 L 411) Assistant Branch Manager ID - 6000POCT-GLUCOSE [id number] 14:08:00 Test Item Value Reference Range Interpretation Comments POC-GLUCOSE METER 159 mg/dL 70-110 H : [facility] (test code = [facility] Maximo [facility], 1538) 55766: Assistant Branch Manager/Techni sree ID = [id number] for DOROTA SOLANO Hemoglobin [id number] 08:25:00 Test Item Value Reference Range Interpretation Comments Hemoglobin A1C (test code = 4548-4) 7.1 % 4.3-6.1 H Lab Interpretation (test code = Abnormal 93619-9) [facility] [id number] 08:25:00 Test Item Value Reference Range Interpretation Comments HEMOGLOBIN A1C (BEAKER) (test code = 7.1 % 4.3-6.1 H 368) SARS-CoV2/RT-PCR (Asymptomatic ONLY)2019-09-03 07:16:00 Test Item Value Reference Range Interpretation Comments SARS-COV2/RT-PCR Negative Not Detected, (test code = Negative 78662-2) SARS-COV-2 [facility] PERFORMING LAB (test code = 97369-7) IZABEL (test code = Negative results do not IZABEL) preclude SARS-CoV-2 infection and should not be used as the sole basis for patient management decisions. Negative results must be combined with clinical observations, patient history, and epidemiological information. A false negative result may occur if a specimen is improperly collected, transported or handled. The limit of detection for this assay is 250 copies/mL. This SARS CoV-2 test is a rapid, real-time RT-PCR test intended for the qualitative detection of nucleic acid from SARS-CoV-2 in a nasopharyngeal swab specimen collected from individuals suspected of COVID-19 by their healthcare provider. This test has not been Food and Drug Administration (FDA) cleared or approved and has been authorized by FDA under an Emergency Use Authorization (EUA). This EUA will be effective until the declaration that circumstances exist justifying the authorization of the emergency use of in vitro diagnostic tests for detection and/or diagnosis of COVID-19 is terminated under Section 564(b)(2) of the Act or the EUA is revoked under Section 564(g) of the Act. Fact Sheet for Healthcare Providers:https://www.Lysanda/Documents/Xper t%20Xpress%20SARS%20CoV- 2/Fact%20Sheets/302-3802 %06QZBR-BTE-8%20HEALTHCA RE%20PROVIDERS%20FACT%20 SHEET.pdf Fact Sheet for Healthcare Patients:https://www.[facility]/Documents/Xpert %20Xpress%20SARS%20CoV-2 /Fact%20Sheets/3023801% 31NHQV-APS-5%20PATIENT%2 0FACT%20SHEET.pdf Performing Laboratory:[facility] [place] [address].[place], [place] [address] [place], [place] [address]ARS-COV2/RT-PCR ([facility])2019-09-03 07:16:00 Test Item Value Reference Range Interpretation Comments SARS-COV2/RT-PCR (test code = Negative Not Detected, Negative 1657659) SARS-COV-2 PERFORMING LAB [facility] (test code = 7031484) Negative results do not preclude SARS-CoV-2 infection and should not be used as the sole basis for patient management decisions. Negative results must be combined with clinical observations, patient history, and epidemiological information. A false negative result may occur if a specimen is improperly collected, transported or handled.The limit of detection for this assay is 250 copies/mL.This SARS CoV-2 test is a rapid, real-time RT-PCR test intended for the qualitative detection of nucleic acid from SARS-CoV-2 in a nasopharyngeal swab specimen collected from individuals suspected of COVID-19 by their healthcare provider.This test has not been Food and Drug Administration (FDA) cleared or approved and has been authorized by FDA under an Emergency Use Authorization (EUA). This EUA will be effective until the declaration that circumstances exist justifying the authorization of the emergency use of in vitro diagnostic tests for detection and/or diagnosis of COVID-19 is terminated under Section 564(b)(2) of the Act or the EUA is revoked under Section 564(g) of the Act.Fact Sheet for Healthcare Pro viders:https://www.hoozin/Documents/Xpert%20Xpress%20SARS%20CoV-2/Fact%20Sh eets/302-3802%55BVZE-ZGH-6%20HEALTHCARE%20PROVIDERS%20FACT%20SHEET.pdfFact Sheet for Healthcare Patients:https://www.TeamLINKS/Documents/Xpert%20Xpress%20SARS%20CoV-2/Fact%20Sheets/302-3801%20SARS-COV -2%20PATIENT%20FACT%20SHEET.pdfPerforming Laboratory:[address], [place] [address]SVGMD METABOLIC [id number] 06:26:00 Test Item Value Reference Range Interpretation Comments SODIUM (BEAKER) 138 meq/L 136-145 (test code = 381) POTASSIUM (BEAKER) 3.8 meq/L 3.5-5.1 (test code = 379) CHLORIDE (BEAKER) 109 meq/L 98-107 H (test code = 382) CO2 (BEAKER) (test 23 meq/L 22-29 code = 355) BLOOD UREA NITROGEN 42 mg/dL 7-21 H (BEAKER) (test code = 354) CREATININE (BEAKER) 0.82 mg/dL 0.57-1.25 (test code = 358) GLUCOSE RANDOM 208 mg/dL 70-105 H (BEAKER) (test code = 652) CALCIUM (BEAKER) 7.9 mg/dL 8.4-10.2 L (test code = 697) EGFR (BEAKER) (test 94 mL/min/1.73 ESTIMA RON GFR IS code = 1092) sq m NOT ACCURATE CREATININE CLEARANCE IN PREDICTING GLOMERULAR FILTRATION RATE . ESTIMATED GFR I S NOT APPLICABLE FOR DIALYSIS PATIEN TS. Assistant Branch Manager ID - PIAYA LCBC W/PLT COUNT & AUTO [id number] 06:12:00 Test Item Value Reference Range Interpretation Comments WHITE BLOOD CELL COUNT (BEAKER) 11.9 K/ L 3.5-10.5 H (test code = 775) RED BLOOD CELL COUNT (BEAKER) 2.16 M/ L 4.63-6.08 L (test code = 761) HEMOGLOBIN (BEAKER) (test code = 6.7 GM/DL 13.7-17.5 L 410) HEMATOCRIT (BEAKER) (test code = 19.5 % 40.1-51.0 L 411) MEAN CORPUSCULAR VOLUME (BEAKER) 90.3 fL 79.0-92.2 (test code = 753) MEAN CORPUSCULAR HEMOGLOBIN 31.0 pg 25.7-32.2 (BEAKER) (test code = 751) MEAN CORPUSCULAR HEMOGLOBIN CONC 34.4 GM/DL 32.3-36.5 (BEAKER) (test code = 752) RED CELL DISTRIBUTION WIDTH 14.8 % 11.6-14.4 H (BEAKER) (test code = 412) PLATELET COUNT (BEAKER) (test 178 K/CU MM 150-450 code = 756) MEAN PLATELET VOLUME (BEAKER) 10.1 fL 9.4-12.4 (test code = 754) NUCLEATED RED BLOOD CELLS 0 /100 WBC 0-0 (BEAKER) (test code = 413) NEUTROPHILS RELATIVE PERCENT 59 % (BEAKER) (test code = 429) LYMPHOCYTES RELATIVE PERCENT 32 % (BEAKER) (test code = 430) MONOCYTES RELATIVE PERCENT 7 % (BEAKER) (test code = 431) EOSINOPHILS RELATIVE PERCENT 0 % (BEAKER) (test code = 432) BASOPHILS RELATIVE PERCENT 0 % (BEAKER) (test code = 437) NEUTROPHILS ABSOLUTE COUNT 7.02 K/ L 1.78-5.38 H (BEAKER) (test code = 670) LYMPHOCYTES ABSOLUTE COUNT 3.84 K/ L 1.32-3.57 H (BEAKER) (test code = 414) MONOCYTES ABSOLUTE COUNT (BEAKER) 0.85 K/ L 0.30-0.82 H (test code = 415) EOSINOPHILS ABSOLUTE COUNT 0.02 K/ L 0.04-0.54 L (BEAKER) (test code = 416) BASOPHILS ABSOLUTE COUNT (BEAKER) 0.04 K/ L 0.01-0.08 (test code = 417) IMMATURE GRANULOCYTES-RELATIVE 1 % 0-1 PERCENT (BEAKER) (test code = 2801) ANTIONE, [id number] 01:14:00 Test Item Value Reference Range Interpretation Comments ABO Grouping (test code = 2588) A Rh Factor (test code = 2589) POS [facility] [id number] 00:03:00 Test Item Value Reference Range Interpretation Comments POC-GLUCOSE METER 213 mg/dL 70-110 H : TESTED A T [facility] 6720 (BEAKER) (test code = [facility] [place], 1538) 10[address]: Assistant Branch Manager/Techni sree ID = [id number] for KAELA MCDUFFIE B-type Natriuretic Factor (BNP)2019-09-02 23:35:00 Test Item Value Reference Range Interpretation Comments BNP (test code = 11286-7) <10 0-100 IZABEL (test code = IZABEL) Assistant Branch Manager ID - WILBER L Lab Interpretation (test Normal code = 22337-0) [facility] CenterB-TYPE NATRIURETIC FACTOR (BNP)2019-09-02 23:35:00 Test Item Value Reference Range Interpretation Comments B-TYPE NATRIURETIC PEPTIDE (BEAKER) < pg/mL 0-100 (test code = 700) Assistant Branch Manager ID - WILBER LTroponin [id number] 23:29:00 Test Item Value Reference Range Interpretation Comments Troponin I (test code = 0.02 ng/mL 0-0.03 65132-6) IZABEL (test code = IZABEL) Troponin I (TnI) levels must be interpreted in the context of the presenting symptoms and the clinical findings. Elevated TnI levels indicate myocardial damage, but are not specific for ischemic heart disease. Elevated TnI levels are seen in patients with other cardiac conditions (including myocarditis and congestive heart failure), and slight TnI elevations occur in patients with other conditions, including sepsis, renal failure, acidosis, acute neurological disease, and persistent tachyarrhythmia.Opera tor ID - WILBER L Lab Interpretation (test Normal code = 76629-3) [facility] CenterTRMICHELLEN [id number] 23:29:00 Test Item Value Reference Range Interpretation Comments TROPONIN I (BEAKER) (test code = 0.02 ng/mL 0.00-0.03 397) Troponin I (TnI) levels must be interpreted in the context of the presenting symptoms and the clinical findings. Elevated TnI levels indicate myocardial damage, but are not specific for ischemic heart disease. Elevated TnI levels are seen in patients with other cardiac conditions (including myocarditis and congestive heart failure), and slight TnI elevations occur in patients with other conditions, including sepsis, renal failure, acidosis, acute neurological disease, and persistent tachyarrhythmia.Assistant Branch Manager ID - PIAYA LComprehensive metabolic [id number] 23:21:00 Test Item Value Reference Range Interpretation Comments Protein, Total (test 5.3 See_Comment L [Autom ated code = 2885-2) message] The system which generated this result transmit ron reference range : 6.0 - 8.3 gm/dL . The reference range was not u sed to interpret th is result as normal/abnormal . Albumin (test code = 3.5 g/dL 3.5-5 66582-7) Alkaline Phosphatase 51 U/L 40-150 (test code = 6768-6) Total Bilirubin (test 0.3 mg/dL 0.2-1.2 code = 1975-2) Sodium (test code = 137 meq/L 227-018 5465-2) Potassium (test code 3.8 meq/L 3.5-5.1 = 2823-3) Chloride (test code = 109 meq/L 98-107 H 2075-0) CO2 (test code = 21 meq/L 22-29 L 2028-9) BUN (test code = 49 mg/dL 7-21 H 3094-0) Creatinine (test code 0.87 mg/dL 0.57-1.25 = 2160-0) Glucose (test code = 225 mg/dL 70-105 H 2345-7) Calcium (test code = 8.1 mg/dL 8.4-10.2 L 62186-5) AST (test code = 13 U/L 5-34 1920-8) ALT (test code = 21 U/L 6-55 1742-6) EGFR (test code = 88 mL/min/1.73 [place] [address]-2) NOT ACCURATE CREATININE CLEARANCE IN PREDICTING GLOMERULAR FILTRATION RATE . ESTIMATED GFR I S NOT APPLICABLE FOR DIALYSIS PATIEN IZABEL (test code = IZABEL) Assistant Branch Manager ID - WILBER Hurtado Lab Interpretation Abnormal (test code = 64878-7) [facility] CenterMagnesium2020-07-19 23:21:00 Test Item Value Reference Range Interpretation Comments Magnesium (test code = 2.1 mg/dL 1.6-2.6 55987-2) IZABEL (test code = IZABEL) Assistant Branch Manager ID - WILBER L Lab Interpretation (test Normal code = 20304-0) [facility] CenterProthrombin time/[id number] 23:21:00 Test Item Value Reference Interpretation Comments Range Protime (test code = 15.0 See_Comment H [Autom ated 3972-2) message] The system which generated this result transmitted reference range : 11.9 - 14.2 seconds. The reference range was not used to interpret this result as normal/abnormal . INR (test code = 1.2 See_Comment [Automated 7381-6) message] The system which generated this result transmitted reference range : <=5.9. The reference range was not used to interpret this result as normal/abnormal . IZABEL (test code = Effective 07/12/2018: IZABEL) PT Reference Range ChangeNew: 11.9-14.2 Previous: 11.7-14.7 RECOMMENDED COUMADIN/WARFARIN INR THERAPY RANGESSTANDARD DOSE: 2.0-3.0 Includes: PROPHYLAXIS for venous thrombosis, systemic embolization; TREATMENT for venous thrombosis and/or pulmonary embolus.HIGH RISK: Target INR is 2.5-3.5 for patients wiht mechanical heart valves. Lab Interpretation Abnormal (test code = 19002-2) [facility] CenterMAGNESIUM2020-07-19 23:21:00 Test Item Value Reference Range Interpretation Comments MAGNESIUM (BEAKER) (test code = 2.1 mg/dL 1.6-2.6 627) Assistant Branch Manager ID - PIAYA LCOMPREHENSIVE METABOLIC [id number] 23:21:00 Test Item Value Reference Range Interpretation Comments TOTAL PROTEIN 5.3 gm/dL 6.0-8.3 L (BEAKER) (test code = 770) ALBUMIN (BEAKER) 3.5 g/dL 3.5-5.0 (test code = 1145) ALKALINE PHOSPHATASE 51 U/L 40-150 (BEAKER) (test code = 346) BILIRUBIN TOTAL 0.3 mg/dL 0.2-1.2 (BEAKER) (test code = 377) SODIUM (BEAKER) (test 137 meq/L 136-145 code = 381) POTASSIUM (BEAKER) 3.8 meq/L 3.5-5.1 (test code = 379) CHLORIDE (BEAKER) 109 meq/L 98-107 H (test code = 382) CO2 (BEAKER) (test 21 meq/L 22-29 L code = 355) BLOOD UREA NITROGEN 49 mg/dL 7-21 H (BEAKER) (test code = 354) CREATININE (BEAKER) 0.87 mg/dL 0.57-1.25 (test code = 358) GLUCOSE RANDOM 225 mg/dL 70-105 H (BEAKER) (test code = 652) CALCIUM (BEAKER) 8.1 mg/dL 8.4-10.2 L (test code = 697) AST (SGOT) (BEAKER) 13 U/L 5-34 (test code = 353) ALT (SGPT) (BEAKER) 21 U/L 6-55 (test code = 347) EGFR (BEAKER) (test 88 mL/min/1.73 ESTIMA RON GFR IS code = 1092) sq m NOT ACCURATE CREATININE CLEARANCE IN PREDICTING GLOMERULAR FILTRATION RATE . ESTIMATED GFR I S NOT APPLICABLE FOR DIALYSIS PATIEN TS. Assistant Branch Manager ID - PIAYA LPROTHROMBIN TIME/[id number] 23:21:00 Test Item Value Reference Range Interpretation Comments PROTIME (BEAKER) (test code = 15.0 seconds 11.9-14.2 H 759) INR (BEAKER) (test code = 370) 1.2 <=5.9 Effective 07/12/2018: PT Reference Range ChangeNew: 11.9-14.2 Previous: 11.7- 14.7RECOMMENDED COUMADIN/WARFARIN INR THERAPY RANGESSTANDARD DOSE: 2.0-3.0 Includes: PROPHYLAXIS for venous thrombosis, systemic embolization; TREATMENT for venous thrombosis and/or pulmonary embolus.HIGH RISK: Target INR is2.5-3.5 for patients wiht mechanical heart valves.CBC W/PLT COUNT & AUTO [id number] 23:10:00 Test Item Value Reference Range Interpretation Comments WHITE BLOOD CELL COUNT (BEAKER) 14.1 K/ L 3.5-10.5 H (test code = 775) RED BLOOD CELL COUNT (BEAKER) 2.40 M/ L 4.63-6.08 L (test code = 761) HEMOGLOBIN (BEAKER) (test code = 7.3 GM/DL 13.7-17.5 L 410) HEMATOCRIT (BEAKER) (test code = 21.5 % 40.1-51.0 L 411) MEAN CORPUSCULAR VOLUME (BEAKER) 89.6 fL 79.0-92.2 (test code = 753) MEAN CORPUSCULAR HEMOGLOBIN 30.4 pg 25.7-32.2 (BEAKER) (test code = 751) MEAN CORPUSCULAR HEMOGLOBIN CONC 34.0 GM/DL 32.3-36.5 (BEAKER) (test code = 752) RED CELL DISTRIBUTION WIDTH 14.6 % 11.6-14.4 H (BEAKER) (test code = 412) PLATELET COUNT (BEAKER) (test 224 K/CU MM 150-450 code = 756) MEAN PLATELET VOLUME (BEAKER) 10.5 fL 9.4-12.4 (test code = 754) NUCLEATED RED BLOOD CELLS 0 /100 WBC 0-0 (BEAKER) (test code = 413) NEUTROPHILS RELATIVE PERCENT 65 % (BEAKER) (test code = 429) LYMPHOCYTES RELATIVE PERCENT 26 % (BEAKER) (test code = 430) MONOCYTES RELATIVE PERCENT 8 % (BEAKER) (test code = 431) EOSINOPHILS RELATIVE PERCENT 0 % (BEAKER) (test code = 432) BASOPHILS RELATIVE PERCENT 0 % (BEAKER) (test code = 437) NEUTROPHILS ABSOLUTE COUNT 9.18 K/ L 1.78-5.38 H (BEAKER) (test code = 670) LYMPHOCYTES ABSOLUTE COUNT 3.70 K/ L 1.32-3.57 H (BEAKER) (test code = 414) MONOCYTES ABSOLUTE COUNT (BEAKER) 1.08 K/ L 0.30-0.82 H (test code = 415) EOSINOPHILS ABSOLUTE COUNT 0.00 K/ L 0.04-0.54 L (BEAKER) (test code = 416) BASOPHILS ABSOLUTE COUNT (BEAKER) 0.03 K/ L 0.01-0.08 (test code = 417) IMMATURE GRANULOCYTES-RELATIVE 1 % 0-1 PERCENT (BEAKER) (test code = 2801)
--- NOTE | 2020-06-09 13:26 | RAD REPORT ---
EXAM DESCRIPTION: [place] Single View06/09/2020 1:15 pm CLINICAL HISTORY: Chest pain COMPARISON: August 2019 FINDINGS: The lungs appear clear of acute infiltrate. The heart is normal size IMPRESSION: No acute abnormalities displayed
[2020-06-09 13:27] LABS: Absolute Lymphocytes (CBC) 2.2 K/uL (0.7-4.9); Hematocrit 44.4 % (39.6-49.0); Lymphocytes % 38.3 % (15.3-44.8); MPV 8.5 fL (7.6-11.3); RBC Red Blood Cell Count 5.06 M/uL (4.33-5.43)
[2020-06-09 13:34] LABS: Protime INR 1.07
[2020-06-09 13:43] LABS: ALT/SGPT 38 U/L (12-78); AST/SGOT 16 U/L (15-37); Albumin 3.8 g/dL (3.4-5.0); Alkaline Phosphatase 93 U/L (45-117); BUN Blood Urea Nitrogen 13 mg/dL (7-18); Bicarbonate 25 mmol/L (21-32); Bilirubin Direct 0.1 mg/dL (0-0.2); Bilirubin Total 0.4 mg/dL (0.2-1.0); Glucose Level 110 mg/dL (74-106); Lipase 106 U/L (73-393); Magnesium 2.3 mg/dL (1.8-2.4); NT PRO-BNP 43 pg/mL (<125); Protein, Total 7.2 g/dL (6.4-8.2); Sodium Level 141 mmol/L (136-145); Troponin (Emerg Dept Use Only) < 0.02 ng/mL (0.0-0.045)
--- NOTE | 2020-06-09 13:49 | ER ---
Nurse's Notes [facility] Name: Jeff Medeiros Age: 69 yrs Sex: Male : 1950 Arrival Date: 06/09/2020 Time: 12:39 Bed 17 Private MD: Diagnosis: Chest pain, unspecified;Type 2 diabetes mellitus;Essential (primary) hypertension;Obesity, unspecified Presentation: 06/09 12:39 Chief complaint: Patient states: CP started 1 hour INSIDE [employer], just L of sternum. Slight ll1 dizziness. Started after working in the yard and taking a shower today. Coronavirus screen: Client denies travel out of the [place] in the last 14 days. At this time, the client does not indicate any symptoms associated with coronavirus-19. Ebola Screen: Patient denies travel to an Ebola-affected area in the 21 days before illness onset. Initial Sepsis Screen: Does the patient meet any 2 criteria? No. Patient's initial sepsis screen is negative. Does the patient have a suspected source of infection? No. Patient's initial sepsis screen is negative. Risk Assessment: Do you want to hurt yourself or someone else? Patient reports no desire to harm self or others. Onset of symptoms was June 09, 2020. 12:39 Method Of Arrival: Wheelchair ll1 12:39 Acuity: SHARON 3 ll1 Triage Assessment: 12:50 General: Appears in no apparent distress. uncomfortable, Behavior is cooperative, bp appropriate for age, anxious. Pain: Complains of pain in mid-sternal area. EENT: No deficits noted. Neuro: No deficits noted. Cardiovascular: Reports chest pain. Respiratory: No deficits noted. GI: No signs and/or symptoms were reported involving the gastrointestinal system. : No signs and/or symptoms were reported regarding the genitourinary system. Derm: No deficits noted. Musculoskeletal: No deficits noted. Historical: - Allergies: 12:42 tramadol; ll1 - PMHx: 12:42 Diabetes - NIDDM; High Cholesterol; Hypertension; ll1 - PSHx: 12:42 Angioplasty; knee, shoulder, back SX; Hernia repair; Tonsillectomy; ll1 - Immunization history:: Client reports receiving the 2nd dose of the Covid vaccine, Flu vaccine is up to date. - Social history:: Smoking status: Patient/guardian denies using tobacco, the patient reports quitting approximately 22 years ago. - Family history:: not pertinent. Screenin:10 Abuse screen: Denies threats or abuse. Denies injuries from another. Nutritional bp screening: No deficits noted. Tuberculosis screening: No symptoms or risk factors identified. Fall Risk None identified. Assessment: 12:50 General: SEE TRIAGE NOTE. bp 14:00 Reassessment: No changes from previously documented assessment. Patient and/or family bp updated on plan of care and expected duration. Pain level reassessed. Patient is alert, oriented x 3, equal unlabored respirations, skin warm/dry/pink. ADMIT INITIATED. 18:38 Reassessment: PT D/C HOME FROM [facility] BY DR COY. bp Vital Signs: 12:39 BP 152 / 92; Pulse 72; Resp 17; Temp 97.8; Pulse Ox 97% ; Weight 104.33 kg; Height 5 ll1 ft. 10 in. (177.80 cm); Pain 4/10; 13:15 BP 149 / 106; Pulse 68; Resp 16; Pulse Ox 95% on R/A; dh4 14:30 BP 145 / 83; Pulse 67; Resp 14; Pulse Ox 95% ; bp 12:39 Body Mass Index 33.00 (104.33 kg, 177.80 cm) ll1 ED Course: 12:39 Patient arrived in ED. ll1 12:41 Triage completed. ll1 12:43 Arm band placed on. EKG completed in triage. Results shown to MD. ll1 12:50 Travon Tristan MD is Attending Physician. kris 13:08 Inserted saline lock: 20 gauge in right antecubital area, using aseptic technique. dh4 Blood collected. 13:10 Patient has correct armband on for positive identification. Bed in low position. Call bp light in reach. Side rails up X2. 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 Pulse ox on. NIBP on. 13:15 XRAY Chest (1 view) In Process Unspecified. EDMS 13:48 Pawan Coy MD is Hospitalizing Provider. [facility] 14:01 Billy Thomas, SILVESTRE is Primary Nurse. bp 18:39 No provider procedures requiring assistance completed. IV discontinued, intact, bp bleeding controlled, No redness/swelling at site. Pressure dressing applied. Patient maintains SpO2 saturation greater than 95% on room air. Administered Medications: 13:10 Drug: NS 0.9% 1000 ml Route: IV; Rate: 125 ml/hr; Site: right antecubital; bp 18:39 Follow up: IV Status: Completed infusion; IV Intake: 600ml bp 13:10 Drug: Aspirin Chewable Tablet 324 mg Route: PO; bp 18:40 Follow up: Response: No adverse reaction bp 14:00 Drug: ProTONIX (pantoprazole) 40 mg Route: IVP; Site: right antecubital; bp 18:40 Follow up: Response: No adverse reaction bp 14:00 Drug: Lopressor (metoprolol TARTRATE)) 25 mg Route: PO; bp 18:40 Follow up: Response: No adverse reaction bp 14:00 Drug: Lovenox (enoxaparin) 100 mg Route: Sub-Q; Site: right lower abdomen; bp 18:39 Follow up: Response: No adverse reaction bp Intake: 18:39 IV: 600ml; Total: 600ml. bp Outcome: 13:49 Decision to Hospitalize by Provider. kris 18:39 Admitted to ER Hold. Please see [facility] for further documentation. bp 18:39 Condition: stable 18:39 Instructed on the need for admit. 18:40 Patient left the ED. bp Signatures: Dispatcher [employer] EDTravon Wilkins MD MD cha Peltier, Brian, RN RN Ranulfo Ospina formerly [facility] Chen Dockery RN RN ll1
--- NOTE | 2020-06-09 13:50 | EDPHYS ---
Physician Documentation [facility] Name: Jeff Medeiros Age: 69 yrs Sex: Male : 1950 Arrival Date: 06/09/2020 Time: 12:39 Bed 17 Private MD: ED Physician Travon Tristan HPI: 06/09 13:37 This 69 yrs old Male presents to ER via Wheelchair with complaints of Chest kris Pain. 13:37 The patient or guardian reports chest pain that is located primarily in the substernal kris area, anterior chest wall, left. Onset: just prior to arrival. The pain does not radiate. Associated signs and symptoms: Pertinent positives: dizziness. The chest pain is described as a heaviness, a pressure. Severity of pain: At its worst the pain was mild moderate in the emergency department the pain has resolved and did so just prior to arrival. The patient has experienced similar episodes in the past, several times. Historical: - Allergies: 12:42 tramadol; ll1 - PMHx: 12:42 Diabetes - NIDDM; High Cholesterol; Hypertension; ll1 - PSHx: 12:42 Angioplasty; knee, shoulder, back SX; Hernia repair; Tonsillectomy; ll1 - Immunization history:: Client reports receiving the 2nd dose of the Covid vaccine, Flu vaccine is up to date. - Social history:: Smoking status: Patient/guardian denies using tobacco, the patient reports quitting approximately 22 years ago. - Family history:: not pertinent. ROS: 13:37 Constitutional: Negative for fever, chills, and weight loss, Eyes: Negative for injury, kris pain, redness, and discharge, ENT: Negative for injury, pain, and discharge, Neck: Negative for injury, pain, and swelling, Respiratory: Negative for shortness of breath, cough, wheezing, and pleuritic chest pain, Abdomen/GI: Negative for abdominal pain, nausea, vomiting, diarrhea, and constipation, Back: Negative for injury and pain, : Negative for injury, bleeding, discharge, and swelling, MS/Extremity: Negative for injury and deformity, Skin: Negative for injury, rash, and discoloration, Neuro: Negative for headache, weakness, numbness, tingling, and seizure, Psych: Negative for depression, anxiety, suicide ideation, homicidal ideation, and hallucinations, Allergy/Immunology: Negative for hives, rash, and allergies, Endocrine: Negative for neck swelling, polydipsia, polyuria, polyphagia, and marked weight changes, Hematologic/Lymphatic: Negative for swollen nodes, abnormal bleeding, and unusual bruising. 13:37 Cardiovascular: Positive for Exam: 13:39 Constitutional: This is a well developed, well nourished patient who is awake, alert, kris and in no acute distress. Head/Face: Normocephalic, atraumatic. Eyes: Pupils equal round and reactive to light, extra-ocular motions intact. Lids and lashes normal. Conjunctiva and sclera are non-icteric and not injected. Cornea within normal limits. Periorbital areas with no swelling, redness, or edema. ENT: Nares patent. No nasal discharge, no septal abnormalities noted. Tympanic membranes are normal and external auditory canals are clear. Oropharynx with no redness, swelling, or masses, exudates, or evidence of obstruction, uvula midline. Mucous membranes moist. Neck: Trachea midline, no thyromegaly or masses palpated, and no cervical lymphadenopathy. Supple, full range of motion without nuchal rigidity, or vertebral point tenderness. No Meningismus. Chest/axilla: Normal chest wall appearance and motion. Nontender with no deformity. No lesions are appreciated. Cardiovascular: Regular rate and rhythm with a normal S1 and S2. No gallops, murmurs, or rubs. Normal PMI, no JVD. No pulse deficits. Respiratory: Lungs have equal breath sounds bilaterally, clear to auscultation and percussion. No rales, rhonchi or wheezes noted. No increased work of breathing, no retractions or nasal flaring. Abdomen/GI: Soft, non-tender, with normal bowel sounds. No distension or tympany. No guarding or rebound. No evidence of tenderness throughout. Back: No spinal tenderness. No costovertebral tenderness. Full range of motion. Male : Normal genitalia with no discharge or lesions. Skin: Warm, dry with normal turgor. Normal color with no rashes, no lesions, and no evidence of cellulitis. MS/ Extremity: Pulses equal, no cyanosis. Neurovascular intact. Full, normal range of motion. Neuro: Awake and alert, GCS 15, oriented to person, place, time, and situation. Cranial nerves II-XII grossly intact. Motor strength 5/5 in all extremities. Sensory grossly intact. Cerebellar exam normal. Normal gait. Psych: Awake, alert, with orientation to person, place and time. Behavior, mood, and affect are within normal limits. 13:39 Abdomen/GI: Inspection: distension, Bowel sounds: normal, Palpation: abdomen is soft and non-tender, Rectal exam: is unremarkable, Prostate: normal, rectal tone normal, Stool: guaiac negative, hemorrhoid(s), are not appreciated, mass, is not appreciated, swelling, is not appreciated, tenderness, is not appreciated, Liver: no appreciated palpable abnormalities, Hernia: not appreciated. 13:39 Musculoskeletal/extremity: DVT Exam: No signs of deep vein thrombosis. no pain, no swelling, no tenderness, negative Homans' sign noted on exam, no appreciated bluish discoloration, no erythema, no increased warmth. 13:50 ECG was reviewed by the Attending Physician. kris Vital Signs: 12:39 BP 152 / 92; Pulse 72; Resp 17; Temp 97.8; Pulse Ox 97% ; Weight 104.33 kg; Height 5 ll1 ft. 10 in. (177.80 cm); Pain 4/10; 13:15 BP 149 / 106; Pulse 68; Resp 16; Pulse Ox 95% on R/A; dh4 14:30 BP 145 / 83; Pulse 67; Resp 14; Pulse Ox 95% ; bp 12:39 Body Mass Index 33.00 (104.33 kg, 177.80 cm) ll1 MDM: 12:50 Patient medically screened. kris 12:51 Patient medically screened. kris 13:41 Differential diagnosis: abnormal EKG, anxiety, coronary artery disease congestive heart kris failure cholecystitis, Cholelithiasis esophagitis, hiatal hernia, pancreatitis, pulmonary embolus, stable angina, unstable angina. HEART Score: History: Moderately Suspicious (1), ECG: Normal (0), Age: > or = 65 years (2), Risk Factors: > or = 3 Risk factors for atherosclerotic disease (2), [Hypercholesterolemia] [Hypertension] [DM] [+ Family HX] [Obesity] Troponin: < or = 1 x Normal Limit (0). The patient was given aspirin in the Emergency Department. The patient's deep vein thrombosis risk score was calculated as follows: Total Score: 0. This patient was found to be at low risk for a deep vein thrombosis by using the Well's assessment criteria. The patient's pulmonary embolism risk score was calculated as follows: Total Score: 0-2 points. This patient was found to be at low risk for a pulmonary embolism by using the Well's assessment criteria. JHON Risk Score: 1 - patient's age is greater or equal to 65 years, 1 - Three or more CAD risk factors, 1- Known CAD, 1 - ASA use in past 7 days, 1 - Recent [<24hrs] Severe Angina, TOTAL SCORE = 5. Data reviewed: vital signs, nurses notes, lab test result(s), EKG, radiologic studies, plain films. Data interpreted: satellite project site monitor: rate is 68 beats/min, rhythm is regular, Pulse oximetry: on room air is 95 %. Test interpretation: by ED physician or midlevel provider: ECG, plain radiologic studies. Counseling: I had a detailed discussion with the patient and/or guardian regarding: the historical points, exam findings, and any diagnostic results supporting the discharge/admit diagnosis, lab results, radiology results, the need for further work-up and treatment in the hospital. 06/09 12:52 Order name: Basic Metabolic Panel [facility] 06/09 12:52 Order name: CBC with Diff; Complete Time: 13:37 [facility] 06/09 12:52 Order name: LFT's; Complete Time: 13:50 [facility] 06/09 12:52 Order name: Magnesium; Complete Time: 13:50 [facility] 06/09 12:52 Order name: NT PRO-BNP; Complete Time: 13:50 [facility] 06/09 12:52 Order name: PT-INR; Complete Time: 13:37 [facility] 06/09 12:52 Order name: Troponin (emerg Dept Use Only); Complete Time: 13:50 [facility] 06/09 12:52 Order name: XRAY Chest (1 view); Complete Time: 13:37 [facility] 06/09 12:53 Order name: Basic Metabolic Panel; Complete Time: 13:50 EDMS 06/09 12:53 Order name: Lipase; Complete Time: 13:50 [facility] 06/09 13:38 Order name: Occult Blood--Ancillary bd 06/09 14:21 Order name: COVID-19 : Document "Date of Symptom Onset" if Symptomatic. 4 06/09 16:29 Order name: [facility] 06/09 17:39 Order name: Troponin I [facility] 06/09 12:52 Order name: EKG; Complete Time: 12:53 [facility] 06/09 12:52 Order name: Cardiac monitoring; Complete Time: 13:11 [facility] 06/09 12:52 Order name: EKG - Nurse/Tech; Complete Time: 12:59 [facility] 06/09 12:52 Order name: IV Saline Lock; Complete Time: 13: [facility] 06/09 12:52 Order name: Labs collected and sent; Complete Time: 13: [facility] 06/09 12:52 Order name: O2 Per Protocol; Complete Time: 13: [facility] 06/09 12:52 Order name: O2 Sat Monitoring; Complete Time: 13: [facility] 06/09 13:56 Order name: CONS Physician Consult EDMS EC:50 Rate is 71 beats/min. Rhythm is regular. QRS [place] is Normal. MO interval is normal. QRS rkis interval is normal. QT interval is normal. No Q waves. T waves are Normal. No ST changes noted. Clinical impression: Normal ECG and No evidence of ischemia. Interpreted by me. Reviewed by me. Administered Medications: 13:10 Drug: NS 0.9% 1000 ml Route: IV; Rate: 125 ml/hr; Site: right antecubital; bp 18:39 Follow up: IV Status: Completed infusion; IV Intake: 600ml bp 13:10 Drug: Aspirin Chewable Tablet 324 mg Route: PO; bp 18:40 Follow up: Response: No adverse reaction bp 14:00 Drug: ProTONIX (pantoprazole) 40 mg Route: IVP; Site: right antecubital; bp 18:40 Follow up: Response: No adverse reaction bp 14:00 Drug: Lopressor (metoprolol TARTRATE)) 25 mg Route: PO; bp 18:40 Follow up: Response: No adverse reaction bp 14:00 Drug: Lovenox (enoxaparin) 100 mg Route: Sub-Q; Site: right lower abdomen; bp 18:39 Follow up: Response: No adverse reaction bp Disposition: 06/09/20 13:49 Hospitalization ordered by Pawan Coy for Observation. Preliminary diagnosis are Chest pain, unspecified, Type 2 diabetes mellitus, Essential (primary) hypertension, Obesity, unspecified. - Bed requested for [facility] ER HOLD. - Status is Observation. bp - Condition is Stable. - Problem is new. - Symptoms have improved. Signatures: Dispatcher [employer] EDMS Tressa Silvestre Travon Hernadez MD MD cha Peltier, Brian, RN RN bp Chen Dockery RN RN ll1 Corrections: (The following items were deleted from the chart) 14:02 13:49 Hospitalization Ordered by Pawan Coy MD for Observation. Preliminary diagnosis bd is Chest pain, unspecified; Type 2 diabetes mellitus; Essential (primary) hypertension; Obesity, unspecified. Bed requested for Telemetry/MedSurg (observation). Status is Observation. Condition is Stable. Problem is new. Symptoms have improved. kris 18:40 14:02 06/09/2020 13:49 Hospitalization Ordered by Pawan Coy MD for Observation. bp Preliminary diagnosis is Chest pain, unspecified; Type 2 diabetes mellitus; Essential (primary) hypertension; Obesity, unspecified. Bed requested for [facility] ER HOLD. Status is Observation. Condition is Stable. Problem is new. Symptoms have improved. bd
[2020-06-09] MEDS ORDERED: GLUCAGON 1 MG/VIAL IM PRN (13:58)
[2020-06-09] MEDS ORDERED: D50W 25 GM/50 ML SYRINGE IV PRN (13:58)
[2020-06-09] MEDS ORDERED: ASPIRIN 81 MG CHEWABLE TABLET ONE (14:26)
[2020-06-09] MEDS ORDERED: METOPROLOL TAR 25 MG TAB ONE (14:26)
[2020-06-09] MEDS ORDERED: NA CHLORIDE 0.9% 1,000 ML ONE (14:27)
[2020-06-09] MEDS ORDERED: ENOXAPARIN 100 MG/ML SYR SQ ONE (14:27)
[2020-06-09] MEDS ORDERED: PANTOPRAZOLE 40 MG INJ ONE (14:27)
[2020-06-09] MEDS ORDERED: MORPHINE 4 MG/ML SYR IV PRN (16:28)
[2020-06-09] MEDS ORDERED: SODIUM CHLORIDE 0.9% 10ML INJ IV PRN (16:28)
[2020-06-09] MEDS ORDERED: ONDANSETRON 4 MG/2 ML VIAL IV PRN (16:28)
[2020-06-09] MEDS ORDERED: INSULIN -REGULAR HUMAN 50 UNIT/0.5 ML ML SQ SCH (16:30)
[2020-06-09] MEDS ORDERED: ACETAMINOPHEN 325 MG TABLET PO PRN (16:49)
[2020-06-09] MEDS ORDERED: METOPROLOL TAR 25 MG TAB PO SCH (18:00)
[2020-06-09 18:23] VITALS: O2SAT 96
[2020-06-09 18:47] VITALS: TEMP 97.8
[2020-06-09 18:50] VITALS: BP 145/83
[2020-06-09] MEDS ORDERED: ENOXAPARIN 80 MG/0.8 ML SQ SCH (21:00)
--- NOTE | 2020-06-09 21:37 | P.SSS ---
Patient History Date of Service: 06/09/20 Reason for admission: CHEST PAIN History of Present Illness: MR. LEES HAD CHEST TIGHTNESS LASTING 15 SECONDS OFF AND ON WITHOUT ANY EXERSION TODAY. HE IS PAINFREE NOW. HIS EKG IS NORMAL, HIS CARADIAC ENZYMES ARE NORMAL. I TALKED TO DR. VILCHIS AND HE ASKED HIM TO COME TO OFFICE IN AM. PATIENT IS CLINICALLY STABLE TO GO HOME. HE HAD NORMAL STRESS TEST LESS THAN A YEAR AGO. I HAD NURSE CALL IN NTG SUBL. HE QUIT TAKING ASPIRIN, I ASKED HIM TO CONTINUE IT WITH PEPCID BID TO PROTECT FROM ULCERS. Allergies No Known Allergies Allergy (Verified 09/02/17 09:16) Home Medications: Aspirin 81 mg PO 09/02/17 D3/Folic Acid/Collagen,Hydroly [Cyfolex Capsule] 1 each PO 09/02/17 Glucosamine/Chondr Virgen A Sod [Osteo Bi-Flex Caplet] 1 each PO 09/02/17 Metformin HCl 09/02/17 [place]-3S/Dha/Epa/Fish Oil [Fish Oil 1,200 mg Softgel] 1 each PO 09/02/17 Potassium Chloride 09/02/17 Rosuvastatin Calcium 40 mg PO 09/02/17 Triamcinolone Acetonide [Nasacort] 10.8 ml NS 09/02/17 Vitamin B Complex [B Complex] 1 each PO 09/02/17 hydroCHLOROthiazide [Hydrochlorothiazide] 50 mg PO 09/02/17 lisinopriL [Prinivil] 20 mg PO DAILY 09/02/17 Aspirin [Aspirin EC 81 MG] 81 mg PO DAILY #30 tablet. 06/09/20 Nitroglycerin 0.4 mg SL Q6HR #25 tab.subl 06/09/20 Review of Systems 10-point ROS is otherwise unremarkable Physical Examination - Vital Signs Temperature: 97.8 F Blood Pressure: 145/83 Pulse: 67 Respirations: 14 - Physical Exam General: Alert, In no apparent distress HEENT: Atraumatic, PERRLA, Mucous membr. moist/pink, EOMI, Sclerae nonicteric Neck: Supple, 2+ carotid pulse no bruit, No LAD, Without JVD or thyroid abnormality Respiratory: Clear to auscultation bilaterally, Normal air movement Cardiovascular: Regular rate/rhythm, Normal S1 S2 Gastrointestinal: Normal bowel sounds, No tenderness Musculoskeletal: No tenderness Integumentary: No rashes Neurological: Normal gait, Normal speech, Normal strength at 5/5 x4 extr, Normal tone, Normal affect Lymphatics: No axilla or inguinal lymphadenopathy - Studies Laboratory Data (last 24 hrs) 06/09/20 13:08: PT 12.3, INR 1.07 06/09/20 13:08: WBC 5.70, Hgb 15.1, Hct 44.4, Plt Count 211 06/09/20 13:08: Sodium 141, Potassium 4.0, BUN 13, Creatinine 0.71, Glucose 110 H, Magnesium 2.3, Total Bilirubin 0.4, AST 16, ALT 38, Alkaline Phosphatase 93, Lipase 106 Microbiology Data (last 24 hrs): 06/09/20 13:38 Stool Occult Blood - Final - Diagnosis (Problem(s)) (1) Chest pain Status: Acute Plan: PAIN CHARACTER IS ATYPICAL. HE TABOR STILL HAVE CAD. NO SIGNS OF ACUTE [place] ON EKG OR LAB. HE WILL SEE DR. VILCHIS IN AM. (2) Coronary artery disease Status: Chronic Plan: STABLE (3) History of peptic ulcer Status: Chronic Plan: RESOLVED. I ASKED HIM TO CONTINUE PEPCID BID FOR NOW. (4) Diabetes Status: Chronic Plan: HE GET A1C CHECKED AT OFFICE AND HAS BEEN LESS THAN 7 USUALLY. Qualifiers: Diabetes mellitus type: type 2 Diabetes mellitus complication status: with circulatory complication - Disposition Disposition: [place] HOME/HOME HEALTH CARE Condition: GOOD
[2020-06-10] MEDS ORDERED: PANTOPRAZOLE 40 MG INJ IVP SCH (09:00)
[2020-06-10] MEDS ORDERED: ASPIRIN EC 81 MG TAB PO SCH (09:00)
--- NOTE | 2020-06-10 11:16 | EKG ---
Test Date: 2020-06-09 Test Time: 12:40:07 Secondary Art Teacher: ELIA MEASUREMENT RESULTS: Intervals: Rate: 71 CA: 184 QRSD: 78 QT: 366 QTc: 397 [place]: P: 22 [place]: 184 QRS: 0 T: 18 INTERPRETIVE STATEMENTS: Normal sinus rhythm Normal ECG Compared to ECG 09/02/2019 11:09:03 Sinus tachycardia no longer present Atrial premature complex(es) no longer present Electronically Signed On 06-10-20 11:13:36 CDT by Juan Ramon Clement
--- NOTE | 2020-06-10 11:16 | EKG ---
Test Date: 2020-06-09 Test Time: 12:41:13 [place] Machine Operator: ELIA MEASUREMENT RESULTS: Intervals: Rate: 71 [place]: 184 QRSD: 76 QT: 374 QTc: 406 [place]: P: 21 [place]: 184 QRS: 4 T: 37 INTERPRETIVE STATEMENTS: Normal sinus rhythm Normal ECG Compared to ECG 06/09/2020 12:40:07 No significant changes Electronically Signed On 06-10-20 11:13:36 CDT by Juan Ramon Clement
== END 2020-06-09 18:41 | disposition home health service (06) ==
LOC: ER 12:33 → ERHOLD 13:52
PROVIDERS: ADMIT Internal Medicine; ATTEND Internal Medicine
DX: R07.89 Other chest pain (principal); I25.10 Atherosclerotic heart disease of native coronary artery without angina pectoris; E11.59 Type 2 diabetes mellitus with other circulatory complications; E78.00 Pure hypercholesterolemia, unspecified; I10 Essential (primary) hypertension; Z87.891 Personal history of nicotine dependence; Z87.11 Personal history of peptic ulcer disease
CPT/HCPCS: 96361; 93005 ×2; 85025; 80048; 36415; 83735; 85610; 80076; 82272; 84484 ×2; 83690; 83880; 71045; 96372; 96374; 99285; C9113; J1650; J7030; G0378

== ENCOUNTER 2020-11-18 15:07 | Emergency (ER) | payer OTHER ==
[2020-11-18 16:25] LABS: Absolute Lymphocytes (CBC) 2.8 K/uL (0.7-4.9); Basophils % 0.7 % (0-1.3); Hematocrit 38.5 % (39.6-49.0); Lymphocytes % 37.3 % (15.3-44.8); MPV 8.4 fL (7.6-11.3); RBC Red Blood Cell Count 4.38 M/uL (4.33-5.43)
[2020-11-18 16:30] LABS: Protime INR 1.06
[2020-11-18] MEDS ORDERED: PANTOPRAZOLE 40 MG INJ ONE (16:30)
[2020-11-18] MEDS ORDERED: NA CHLORIDE 0.9% 250 ML ONE (16:30)
[2020-11-18] MEDS ORDERED: NA CHLORIDE 0.9% 1,000 ML ONE (16:30)
[2020-11-18 17:03] LABS: ALT/SGPT 28 U/L (12-78); AST/SGOT 11 U/L (15-37); Albumin 3.6 g/dL (3.4-5.0); Alkaline Phosphatase 100 U/L (45-117); BUN Blood Urea Nitrogen 22 mg/dL (7-18); Bicarbonate 28 mmol/L (21-32); Bilirubin Direct < 0.1 mg/dL (0-0.2); Bilirubin Total 0.2 mg/dL (0.2-1.0); Glucose Level 135 mg/dL (74-106); Lipase 87 U/L (73-393); Potassium 4.1 mmol/L (3.5-5.1); Protein, Total 6.7 g/dL (6.4-8.2); Sodium Level 144 mmol/L (136-145)
--- NOTE | 2020-11-18 17:37 | RAD REPORT ---
EXAM DESCRIPTION: CT - Abdomen Pelvis W Contrast - 11/18/2020 5:28 pm CLINICAL HISTORY: GI BLEED COMPARISON: Scrotum Testicles dated 05/12/2020 TECHNIQUE: Biphasic, helical CT imaging of the abdomen and pelvis was performed following 100 ml non -ionic IV contrast. No oral contrast administered. All CT scans are performed using dose optimization technique as appropriate and may include automated exposure control or mA/KV adjustment according to patient size. FINDINGS: No suspicious findings in the lung bases. The liver, spleen, and pancreas show no suspicious findings. Gallbladder and biliary tree are also wi thout suspicious finding. Symmetric renal function is seen with no hydronephrosis or suspicious renal mass. No pyelonephritis o r acute parenchymal process. Incidental small renal cysts noted. A 2 centimeter left adrenal mass is present. This is most likely an adenoma but does not meet strict diagnostic criteria. No stomach or small bowel abnormality. The stomach is decompressed which limits ability to evaluate t he morrison of the stomach. Appendix is normal. Patient has prominent sigmoid diverticulosis without div erticulitis. No colon mass or acute GI process identifiable. No free air, free fluid or inflammatory stranding. No hernia, mass or bulky lymphadenopathy. Limited imaging extending into the scrotum shows a large 7 centimeter cystic mass. The April examinat ion showed a very large right side hydrocele. No suspicious bony findings. IMPRESSION: Prominent sigmoid diverticulosis without diverticulitis. As detailed above, no acute GI process or source for GI bleed identifiable. Large cystic scrotal mass is seen. Patient has had previously diagnosed hydrocele.
--- NOTE | 2020-11-18 18:06 | EDPHYS ---
Physician Documentation [facility] Name: Jeff Medeiros Age: 70 yrs Sex: Male : 1950 Arrival Date: 11/18/2020 Time: 15:09 Bed 13 Private MD: Pawan Coy V ED Physician Stephane Chu HPI: 11/18 16:06 This 70 yrs old Male presents to ER via Ambulatory with complaints of pm1 Epigastric Pain, Bloody Stools. 16:06 The patient presents with abdominal pain in the epigastric area. Onset: The pm1 symptoms/episode began/occurred 3 day(s) ago. The symptoms do not radiate. Associated signs and symptoms: Pertinent positives: Black stool, Pertinent negatives: chest pain, diarrhea, fever, nausea, shortness of breath, vomiting. Modifying factors: The symptoms are alleviated by nothing, the symptoms are aggravated by nothing. Severity of pain: in the emergency department the pain is unchanged. The patient has experienced similar episodes in the past, a few times, today's symptoms are similar, to previous Upper GI bleed 1 year ago. The patient has not recently seen a physician. Historical: - Allergies: 15:12 tramadol; sv - PMHx: 15:12 Diabetes - NIDDM; High Cholesterol; Hypertension; sv - Immunization history:: Adult Immunizations up to date. - Social history:: Smoking status: Patient denies any tobacco usage or history of. ROS: 16:06 Constitutional: Negative for fever, chills, and weight loss, Cardiovascular: Negative pm1 for chest pain, palpitations, and edema, Respiratory: Negative for shortness of breath, cough, wheezing, and pleuritic chest pain. 16:06 Back: Negative for injury and pain, MS/Extremity: Negative for injury and deformity, Skin: Negative for injury, rash, and discoloration. 16:06 Neuro: Negative for headache, weakness, numbness, tingling, and seizure. 16:06 Abdomen/GI: Positive for abdominal pain, black/tarry stool, of the epigastric area, Negative for nausea, vomiting, and diarrhea, constipation. 16:06 All other systems are negative. Exam: 16:06 Constitutional: This is a well developed, well nourished patient who is awake, alert, pm1 and in no acute distress. Head/Face: Normocephalic, atraumatic. 16:06 Back: No spinal tenderness. No costovertebral tenderness. Full range of motion. Skin: Warm, dry with normal turgor. Normal color with no rashes, no lesions, and no evidence of cellulitis. MS/ Extremity: Pulses equal, no cyanosis. Neurovascular intact. Full, normal range of motion. 16:06 Eyes: Exam is negative for acute changes, Extraocular movements: no acute changes, Sclera: no acute changes, icterus, is not appreciated. 16:06 Cardiovascular: Rate: normal, Rhythm: regular, Pulses: no pulse deficits are appreciated. 16:06 Respiratory: Exam negative for acute changes, respiratory distress, shortness of breath. 16:06 Abdomen/GI: Inspection: obese Bowel sounds: normal, Palpation: abdomen is soft and non-tender, in all quadrants, Rectal exam: Stool: guaiac positive, Komal lynne RN. 16:06 Neuro: Exam negative for acute changes, Orientation: is normal, Mentation: is normal, Motor: is normal, moves all fours, Sensation: is normal, no obvious gross deficits. Vital Signs: 15:13 BP 155 / 90; Pulse 79; Resp 16; Temp 98.1; Pulse Ox 96% ; Weight 106.14 kg; Height 5 sv ft. 10 in. (177.80 cm); Pain 0/10; 15:37 BP 137 / 75; Pulse 14; Resp 80; Pulse Ox 97% on R/A; Pain 0/10; tw5 16:36 BP 119 / 78; Pulse 73; Resp 20; Pulse Ox 95% on R/A; Pain 0/10; tw5 17:58 BP 130 / 66; Pulse 67; Resp 16; Pulse Ox 96% on R/A; Pain 0/10; tw5 18:59 BP 122 / 79; Pulse 72; Resp 18; Pulse Ox 97% ; ld1 22:46 BP 132 / 62; Pulse 67; Resp 18; Temp 98.6; Pulse Ox 96% ; Pain 0/10; bs2 15:13 Body Mass Index 33.57 (106.14 kg, 177.80 cm) sv MDM: 15:54 Patient medically screened. pm1 18:02 Data reviewed: vital signs. Data interpreted: Pulse oximetry: on room air is 96 %. pm1 Interpretation: normal. Counseling: I had a detailed discussion with the patient and/or guardian regarding: the historical points, exam findings, and any diagnostic results supporting the discharge/admit diagnosis, lab results, radiology results, the need for further work-up and treatment in the hospital. 18:02 ED course: Patient requested to be transferred to [facility] for pm1 admission due to GI team that managed his prior upper GI bleed . 22:36 Physician consultation: MD Nam was contacted at 20:08, regarding regarding pm1 transfer, patient's condition, and will see patient. 11/18 15:56 Order name: Basic Metabolic Panel; Complete Time: 17:13 pm1 11/18 15:56 Order name: CBC with Diff; Complete Time: 16:45 pm1 11/18 15:56 Order name: Hepatic Function; Complete Time: 17:13 pm1 11/18 15:56 Order name: Lipase; Complete Time: 17:13 pm1 11/18 15:56 Order name: PT-INR; Complete Time: 16:45 pm1 11/18 15:56 Order name: Ptt, Activated; Complete Time: 16:45 pm1 11/18 15:56 Order name: CT Abd/Pelvis - IV Contrast Only; Complete Time: 18:01 pm1 11/18 15:57 Order name: Type And Screen; Complete Time: 18:01 pm1 11/18 16:15 Order name: SARS-COV-2 RT PCR; Complete Time: 17:13 EDMS 11/18 15:56 Order name: IV Saline Lock; Complete Time: 15:59 pm1 11/18 15:56 Order name: Labs collected and sent; Complete Time: 15:59 pm1 11/18 15:56 Order name: NPO; Complete Time: 16:07 pm1 11/18 16:23 Order name: Labs - recollect needed: recollect green top; Complete Time: 16:36 bd Administered Medications: 16:14 Drug: ProTONIX (pantoprazole) 40 mg Route: IVP; Site: right antecubital; tw5 21:39 Follow up: Response: No adverse reaction bs2 16:14 Drug: NS 0.9% 1000 ml Route: IV; Rate: 100 ml/hr; Site: right antecubital; tw5 22:47 Follow up: IV Status: Infusion continued upon transfer bs2 16:18 Drug: ProTONIX (pantoprazole) 8 mg/hr Route: IV; Rate: 25 ml/hr; Site: right tw5 antecubital; 22:47 Follow up: IV Status: Infusion continued upon transfer bs2 Disposition Summary: 11/18/20 18:05 Transfer Ordered Transfer Location: [facility] pm1 Reason: Patient request pm1 Condition: Stable pm1 Problem: new pm1 Symptoms: have improved pm1 Accepting Physician: (11/18/20 23:35) bs2 Diagnosis - GI Bleed/ Gastrointestinal hemorrhage, unspecified pm1 Forms: - Medication Reconciliation Form pm1 - SBAR form pm1 Addendum: 11/21/2020 08:55 Co-signature as Attending Physician, Stephane Chu MD I agree with the assessment and r n plan of care. Attestation: The patient's history, exam findings, diagnostics, and a summary of any interventions or procedures was reviewed in detail with Juan Miguel Macario NP. Signatures: Dispatcher [employer] EDFL Tressa Silvestre Stephanie, RN Stephane Turner MD MD rn Marinas, Patrick, NP GAMING [employer]IT [employer]OSS pm1 Erica Wolfe RN RN bs2 Komal Dee tw5 Corrections: (The following items were deleted from the chart) 11/18 16:15 15:58 CORONAVIRUS+BRZ ordered. EDFL EDMS 23:35 18:05 pm1 bs2
--- NOTE | 2020-11-18 18:06 | ER ---
Nurse's Notes [facility] Name: Jeff Medeiros Age: 70 yrs Sex: Male : 1950 Arrival Date: 11/18/2020 Time: 15:09 Bed 13 Private MD: Pawan Coy V Diagnosis: GI Bleed/ Gastrointestinal hemorrhage, unspecified Presentation: 11/18 15:11 Chief complaint: Patient states: dark stools, epigastric pain x 3 days. Hx of esophagus sv surgery and there was a stitch that had started bleeding then and that's the last time he had bleeding. Risk Assessment: Do you want to hurt yourself or someone else? Patient reports no desire to harm self or others. Onset of symptoms was November 18, 2020. 15:11 Method Of Arrival: Ambulatory sv 15:11 Acuity: SHARON 3 sv 15:13 Coronavirus screen: Vaccine status: Patient reports receiving the 2nd dose of the covid sv vaccine. Patient reports receiving the 1st dose of the Covid vaccine. Ebola Screen: No symptoms or risks identified at this time. Initial Sepsis Screen: Does the patient meet any 2 criteria? No. Patient's initial sepsis screen is negative. Does the patient have a suspected source of infection? No. Patient's initial sepsis screen is negative. Triage Assessment: 15:14 General: Appears in no apparent distress. comfortable, Behavior is calm, cooperative, sv appropriate for age. Neuro: Level of Consciousness is awake, alert, obeys commands, Gait is steady. Respiratory: Respiratory effort is even, unlabored. Historical: - Allergies: 15:12 tramadol; sv - PMHx: 15:12 Diabetes - NIDDM; High Cholesterol; Hypertension; sv - Immunization history:: Adult Immunizations up to date. - Social history:: Smoking status: Patient denies any tobacco usage or history of. Screenin:37 Abuse screen: Denies threats or abuse. Denies injuries from another. Nutritional tw5 screening: No deficits noted. Tuberculosis screening: No symptoms or risk factors identified. Fall Risk None identified. Assessment: 15:37 General: Appears in no apparent distress. Behavior is calm, cooperative, appropriate tw5 for age. General: Reports " Last year the same thing happened, but I waited too long last time and I passed out. The stool is dark and is the same texture as last time. " Patient goes on to explain " Last time they also transferred me to [facility]. The surgeon that found the bleed last time is still there, and I would like to see him". Pain: Denies pain. Neuro: Level of Consciousness is awake, alert, obeys commands, Oriented to person, place, time, situation. Cardiovascular: Heart tones S1 S2 present Capillary refill < 3 seconds is brisk in left in bilateral. Respiratory: Reports shortness of breath at rest cough that is productive. GI: Bowel sounds present X 4 quads. Abd is soft X 4 quads Reports black, tarry stool. 16:36 Reassessment: Patient appears in no apparent distress at this time. No changes from tw5 previously documented assessment. Patient and/or family updated on plan of care and expected duration. Pain level reassessed. 17:58 Reassessment: Patient appears in no apparent distress at this time. No changes from tw5 previously documented assessment. Patient and/or family updated on plan of care and expected duration. Pain level reassessed. Patient is alert, oriented x 3, equal unlabored respirations, skin warm/dry/pink. Vital Signs: 15:13 BP 155 / 90; Pulse 79; Resp 16; Temp 98.1; Pulse Ox 96% ; Weight 106.14 kg; Height 5 sv ft. 10 in. (177.80 cm); Pain 0/10; 15:37 BP 137 / 75; Pulse 14; Resp 80; Pulse Ox 97% on R/A; Pain 0/10; tw5 16:36 BP 119 / 78; Pulse 73; Resp 20; Pulse Ox 95% on R/A; Pain 0/10; tw5 17:58 BP 130 / 66; Pulse 67; Resp 16; Pulse Ox 96% on R/A; Pain 0/10; tw5 18:59 BP 122 / 79; Pulse 72; Resp 18; Pulse Ox 97% ; ld1 22:46 BP 132 / 62; Pulse 67; Resp 18; Temp 98.6; Pulse Ox 96% ; Pain 0/10; bs2 15:13 Body Mass Index 33.57 (106.14 kg, 177.80 cm) sv ED Course: 15:09 Patient arrived in ED. am2 15:10 Pawan Coy MD is Private Physician. am2 15:12 Triage completed. sv 15:14 Arm band placed on. sv 15:32 Komal Rodriguez, RN is Primary Nurse. tr6 15:33 Primary Nurse role handed off by Komal Rodriguez, SILVESTRE tw5 15:33 Komal Dee is Primary Nurse. tw5 15:37 No apparent distress. Resting quietly. tw5 15:37 Patient has correct armband on for positive identification. Bed in low position. Call tw5 light in reach. Side rails up X 1. Pulse ox on. NIBP on. Door closed. Noise minimized. Lights dimmed. Verbal reassurance given. 15:41 Juan Miguel Macario NP is PHCP. pm1 15:41 Stephane Chu MD is Attending Physician. pm1 15:51 Served as a patient biller during rectal exam. Initial lab(s) drawn, by me. Inserted saline tw5 lock: 20 gauge in right antecubital area, using aseptic technique. 16:07 Type And Screen Sent. tw5 16:07 Occult Blood--Ancillary Sent. tw5 16:07 Ptt, Activated Sent. tw5 16:07 PT-INR Sent. tw5 16:07 Basic Metabolic Panel Sent. tw5 16:07 Hepatic Function Sent. tw5 16:07 CBC with Diff Sent. tw5 16:07 Lipase Sent. tw5 16:36 Awaiting lab results. tw5 16:36 Warm blanket given. Pillow given. tw5 17:28 CT Abd/Pelvis - IV Contrast Only In Process Unspecified. EDMS 17:58 Awaiting re-evaluation by ER provider. tw5 17:58 Verbal reassurance given. Assisted with urinal. tw5 18:59 initiated transfer to [facility]. bd 19:19 Connected Juan Miguel Macario NP with the doctor from [facility]. mw2 19:59 Connected Juan Miguel Macario NP with the Hospitalist from [facility]. mw2 21:33 Called [facility] Transfer [place] spoke with Chad for a status update on the [facility] transfer. He stated "we have a bed and acceptance, but the bed isn't ready yet.". 22:36 administrative approval given by Paul Johns/ patient has been accepted to [address] bed 930/Dr. Nam accepted the patient in transfer/ report to be called to [phone]. 23:03 Patient transferred, IV remains in place. bs2 Administered Medications: 16:14 Drug: ProTONIX (pantoprazole) 40 mg Route: IVP; Site: right antecubital; tw5 21:39 Follow up: Response: No adverse reaction bs2 16:14 Drug: NS 0.9% 1000 ml Route: IV; Rate: 100 ml/hr; Site: right antecubital; tw5 22:47 Follow up: IV Status: Infusion continued upon transfer bs2 16:18 Drug: ProTONIX (pantoprazole) 8 mg/hr Route: IV; Rate: 25 ml/hr; Site: right tw5 antecubital; 22:47 Follow up: IV Status: Infusion continued upon transfer bs2 Outcome: 18:05 ER care complete, transfer ordered by . pm1 23:02 Transferred by ground EMS to [facility], Transfer form completed. bs2 X-rays sent w/ patient. 23:02 Condition: improved 23:02 Instructed on the need for transfer. 23:35 Patient left the ED. bs2 Signatures: Dispatcher [employer] EDMS Tressa Silvestre Stephanie RN RN sv Juan Miguel Macario, DUCK FARMER DUCK FARMER pm1 Josephine Tobias am2 Lalo Wilcox mw2 Marisol Pascual RN RN ld1 Komal Rodriguez RN RN tr6 Erica Wolfe RN RN bs2 Komal Dee tw5 Corrections: (The following items were deleted from the chart) 15:15 15:13 Resp 16bpm; Temp 98.1F; 106.14 kg; Height 5 ft. 10 in.; BMI: 33.5; sv sv 16:15 16:07 CORONAVIRUS+MR.LAB.EDITHZ drawn and sent. tw5 EDMS
[2020-11-18 23:46] VITALS: BP 132/62; TEMP 98.6; O2SAT 96
== END 2020-11-18 23:35 | disposition short-term general hospital (02) ==
LOC: ER 15:07
DX: K92.2 Gastrointestinal hemorrhage, unspecified (principal); I10 Essential (primary) hypertension; E11.9 Type 2 diabetes mellitus without complications; Z20.822 Contact with and (suspected) exposure to COVID-19; Z88.5 Allergy status to narcotic agent
CPT/HCPCS: 96365; 85025; 80048; 36415; 86900; 86850; 85610; 86901; 80076; 85730; 83690; 74177; 99285; 96366; U0003; Q9967; C9113; J7050; J7030

== ENCOUNTER 2022-09-08 21:47 | Inpatient (IN) | payer OTHER ==
--- OUTSIDE RECORDS SUMMARY | 2022-09-08 21:52 | XMS REPORT | Continuity of Care Document ---
:1950 Author Organization [facility] t Address [address] [facility] [address] [place] [address] Care Team Providers Name Role Phone ROLANDO CARTER Primary Care Physician UnavailElio Knight Attending Clinician Unavailable NOE CHAVES Attending Clinician Unavailable REJI TAYLOR Attending Clinician Unavailable JARED ANDERSON Attending Clinician Unavailable SAURAV LLMAAS Attending Clinician Unavailable ARI GROVES Attending Clinician Unavailable NOE CHAVES Admitting Clinician Unavailable REJI TAYLOR Admitting Clinician Unavailable JARED ANDERSON Admitting Clinician Unavailable BAKARI STOUT Admitting Clinician Unavailable ERNESTO VEGA Admitting Clinician Unavailable Payers Payer Name Policy Type Policy Number Effective Date Expiration Date [facility] MEDICARE A B [id number] 2017 00:00:00 GENERIC MEDICARE [id number] 2019 SUPPLEMENT 00:00:00 CDC REVIEW [id number] 2019 2019 00:00:00 00:00:00 Problems Condition Condition Condition Status Onset Resolution Last Treating Co mments Source Name Details Category Date Date Treatment Clinician Date Melena Melena Disease Active 2020-[address] [facility] Hydrocele, Hydrocele, Disease Active [facility] unspecifie unspecifie 5-25 [place] [facility] 00:00: Medical hydrocele hydrocele 00 Cent er type type Type 2 Type [address] [facility] diabetes diabetes nce 7 [facility] mellitus mellitus 00:00: Medica l without without 00 Center complicati complicati on, on, without without long-term long-term current current use of use of insulin insulin GIB GIB Disease Active [facility] (gastroint (gastroint 09-01 [place] [facility] estinal estinal 00:00: Medical bleeding) bleeding) 00 Cent er Essential Essential Disease Active [facility] hypertensi hypertensi 09-01 [place] [facility] on on 00:00: Medical 00 Center Coronary Coronary Disease Active [facility] artery artery 09[facility]01 [facility] disease disease 00:00: Medical involving involving 00 Cent er iqugmi[place] iqugmiut coronary coronary artery of artery of iqugmiut iqugmiut heart heart without without angina angina pectoris pectoris Allergies, Adverse Reactions, Alerts Allergy Allergy Status Severity Reaction(s) Onset Inactive Treating Comm ents Source Name Type Date Date Clinician Barrett Drug Active Other (See Allergy [facility] Comments) 07-07 to [facility] 00:00: sprout - Medical 00 cause Center difficult y swallowin g per pt BARRETT Allergy Active High Other [facility] 524 00:00: 00 TRAMADOL Allergy Active High Sob [facility] 7 00:00: 00 Tramadol Drug Active Shortness Of Causes [facility] Allergy Breath, 09-01 [facility] Anxiety 00:00: anxiety, Medical 00 sob Center NO KNOWN Allergy Active [facility] ALLERGIE S Social History Social Habit Start Date Stop Date Quantity Comments Source History of Current smoker [facility] tobacco use Medical Cente r Alcohol intake 2021-01-23 2021-01-23 Current drinker of [facility] 00:[facility]00 [facility]:00:00 alcohol (finding) Medical Center Tobacco use and 2020-07-07 2020-07-07 Smokeless [address] [facility] exposure 00:00:00 00:00:00 non-user Medical Center Tobacco Comment 2020-07-07 2020-07-07 quit- 01/[address] [facility] 00:00:00 00:00:00 Medical Center Alcohol Comment 2020-07-07 2020-07-[address] [facility] [address] [place] [facility] 00:00:00 00:00:00 Medical Center Sex Assigned At [address] [facility] [place] gleason 00:00:00 00:00:00 Medical Center Smoking Status Start Date Stop Date Source Ex-smoker 2020-07-07 00:00:00 2020-07-07 00:00:[address] [facility] Medications Ordered Filled Start Stop Current Ordering Indication Dosage Frequency Signature Comments Components Source Medication Medication Date Date Medication? Clinician (SIG) Name Name metFORMIN 2020-02 Yes 1000mg Take 1,[address] [facility] (GLUCOPHAGE 2-09 mg by [facility] ) 1000 MG 17:00: mouth Medical tablet 43 daily with Center dinner. losartan 2020-02 Yes 100mg QD Take [address] (COZAAR) 2-09 mg by [facility] 100 MG 17:00: mouth Medical tablet 43 daily. [place] rosuvastati 2020-02 Yes 10mg QD Take [address] n (CRESTOR) 2-09 by mouth Luke s 10 MG 17:00: daily. Medical tablet 43 Center diphenhydrA 2020-02 Yes insomnia 1{tbl} Take [address] MINE-acetam 2-09 tablet by Norma es inophen 17:00: mouth Medical (TYLENOL 43 every Center PM) 25-500 night as mg Tab needed. b complex 2020-02 Yes 1{tbl} QD Take [address] vitamins 2-09 tablet by [facility] tablet 17:00: mouth Medical 43 daily. [place] omega-3 2020-02 Yes 2g QD Take [address] fatty 2-09 by mouth [facility] acids-fish 17:00: daily. Medic al oil 43 Center 340-1,000 mg Cap per capsule cholecalcif 2020-02 Yes 5000U QD Take 5,[address] [facility] [place], 2-09 Units by [facility] vitamin D3, 17:00: mouth Medic al 125 mcg 43 daily. Center (5,000 unit) Tab Vital Signs Vital Name Observation Time Observation Value Comments Source HEIGHT 2020-07-08 06:45:00 177.8 cm WEIGHT 2020-07-08 06:45:00 104.9 kg HEIGHT 2020-07-07 10:36:00 177.8 cm WEIGHT 2020-07-07 10:36:00 104.327 kg HEIGHT 2019-09-02 00:00:00 177.8 cm WEIGHT 2019-09-02 00:00:00 108.863 kg HEIGHT 2021-01-22 14:03:00 177.8 cm WEIGHT 2021-01-22 14:03:00 105.597 kg HEIGHT 2021-01-20 17:05:00 177.8 cm WEIGHT 2021-01-20 17:05:00 104.781 kg HEIGHT 2021-01-22 14:03:00 177.8 cm WEIGHT 2021-01-22 14:03:00 105.597 kg HEIGHT 2021-01-20 17:05:00 177.8 cm WEIGHT 2021-01-20 17:05:00 104.781 kg HEIGHT 2020-11-19 00:59:00 177.8 cm WEIGHT 2020-11-19 00:59:00 110.587 kg HEIGHT 2020-11-19 00:59:00 177.8 cm WEIGHT 2020-11-19 00:59:00 110.587 kg HEIGHT 2020-07-08 06:45:00 177.8 cm WEIGHT 2020-07-08 06:45:00 104.9 kg HEIGHT 2020-07-07 10:36:00 177.8 cm WEIGHT 2020-07-07 10:36:00 104.327 kg HEIGHT 2019-09-02 00:00:00 177.8 cm WEIGHT 2019-09-02 00:00:00 108.863 kg Procedures This patient has no known procedures. Plan of Care Planned Activity Planned Date Details Comments Source Future Scheduled 2022-10-15 Influenza Vaccine (#1) [facility] 00:00:00 [code = Influenza Medical Ce nter Vaccine (#1)] Future Scheduled 2022-02-[address] [facility] Test 00:00:00 (12+) [code = Medical Center DEPRESSION SCREENING (12+)] Future Scheduled 2022-02-14 FALLS RISK SCREENING [facility] Test 00:00:00 [code = FALLS RISK Medical C enter SCREENING] Future Scheduled 2022-01-[address] [facility] Test 00:00:00 Counseling and Medical Cente r Screening (12+) [code = Tobacco Cessation Counseling and Screening (12+)] Future Scheduled 2020-07-06 COVID-19 VACCINE (3 - [facility] Test 00:00:00 Booster for Moderna [facility] Center series) [code = COVID-19 VACCINE (3 - Booster for Moderna series)] Future Scheduled 2020-03-[address] [place] [facility] Test 00:00:00 measurement (procedure) [facility] [code = 10346794] Future Scheduled 2018-05-[address] [facility] Test 00:00:00 WELLNESS (YEAR 2 or Medical Center FIRST YEAR if no IPPE) [code = MEDICARE ANNUAL WELLNESS (YEAR 2 or FIRST YEAR if no IPPE)] Future Scheduled 2002 SHINGLES VACCINES ([address] [facility] Test 00:00:00 2) [code = SHINGLES Medical Center VACCINES (1 of 2)] Future Scheduled 1971-06-11 DTAP/TDAP/TD VACCINES [facility] 00:00:00 (1 - Tdap) [code = Medical C enter DTAP/TDAP/TD VACCINES (1 - Tdap)] Future Scheduled 1970 HEPATITIS C SCREENING [facility] Test 00:00:00 [code = HEPATITIS C Medical Center SCREENING] Future Scheduled 1962 DIABETIC EYE EXAM [code [facility] Test 00:00:00 = DIABETIC EYE EXAM] Medical Center Future Scheduled [address] [facility] Test 00:00:00 examination [facility] (regime/therapy) [code = 709369213] Future Scheduled 1962 Urine screening for [facility] Test 00:00:00 protein (procedure) [facility] [code = 930725508] Future Scheduled 1958 PNEUMOCOCCAL 65+ YRS ([address] [facility] Test 00:00:00 - PCV) [code = Medical Cente r PNEUMOCOCCAL 65+ YRS (1 - PCV)] Future Scheduled 1952 CT Colonography (combo) [facility] Test 00:00:00 [code = CT Colonography [facility] (combo)] Future Scheduled 1952 Screening for malignant [facility] Test 00:00:00 neoplasm of colon Medical Ce nter (procedure) [code = 131380355] Future Scheduled 1952 Screening for malignant [facility] Test 00:00:00 neoplasm of colon Medical Ce nter (procedure) [code = 869336547] Future Scheduled 1952 Screening for malignant [facility] Test 00:00:00 neoplasm of colon Medical Ce nter (procedure) [code = 346081492] Future Scheduled 1952 Screening for malignant [facility] Test 00:00:00 neoplasm of colon Medical Ce nter (procedure) [code = 290799350] Future Scheduled 1950 Sigmoidoscopy [code = [facility] Test 00:00:00 Sigmoidoscopy] Medical Cente r Encounters Start End Encounter Admission Attending Care Care Encounter Source Date/Time Date/Time Type Type Clinicians Facility Department ID 2021-03-11 Outpatient [facility] [id number] Common 12:34:[address] [facility] 2020-11-22 Outpatient EDWARD, [facility] Surgery [id number] [facility] 17:46:06 NOE 2019-09-02 Inpatient ER NALAM, [facility] Gastro [id number] [facility] 17:38:42 REJI 2021-01-22 2021-01-22 [facility] [id number] [facility] 13:16:00 16:35:00 JARED 2021-01-20 2021-01-20 Outpatient [facility] [id number] [facility] 17:04:35 23:59:00 2020-11-19 2020-11-20 Inpatient ER YANELI, [facility] Gastro [id number] [facility] 00:32:00 17:30:00 YASHASH 2020-07-07 2020-07-07 Outpatient [facility] [id number] [facility] 00:00:00 00:00:00 Results Test Description Test Time Test Comments Results Result [facility] e Comments TISSUE EXAM 2021-01-27 Surgical Pathology Report 08:16:44 Case: [id number] Authorizing Provider: Jared Anderson, Collected: 01/22/2021 03:29 PM Ordering Location: [facility] Received: 01/23/2021 08:41 AM SERVICES Pathologist: Evelina Block MD Specimens: A) - Polyp, Gastric, bxs B) - Distal Esophagus, bxs A. STOMACH, POLYPECTOMY: - FOVEOLAR HYPERPLASIA AND MILD CHRONIC INFLAMMATION - RARE DILATED GLAND SUGGESTIVE OF FUNDIC GLAND POLYP B. DISTAL ESOPHAGUS, BIOPSIES: - SQUAMOUS EPITHELIUM WITH REFLUX ASSOCIATED CHANGES - COLUMNAR MUCOSA WITH CHRONIC CARDITISLC/pl Signing Pathologist Direct Phone Line: [phone] y signed by Evelina Block MD on 01/27/2021 at 8:16 AMThe endoscopy report is reviewed in conjunction with the case. [id number] x2; [id number] gastric ulcer with hemorrhage,Acute blood loss anemiaA. GastricB. Distal esophagusA. Received in formalin labeled the patient's name, accession number and "gastric polyp" are 2 sheth soft tissue fragments measuring up to 0.3 cm in greatest dimension which are filtered and submitted in toto in A1.B. Received in formalin labeled the patient's name, accession number and "distal esophagus" are 3 sheth soft tissue fragments measuring up to 0.3 cm in greatest dimension which are filtered and submitted in toto in B1.AUDREY Rosado, (ASC)A. Sections of the gastric polyp show fragmented gastric oxyntic type mucosa. There is foveolar hyperplasia present as well as smooth muscle hyperplasia and mild focal chronic inflammation in the lamina propria. There is no significant acute inflammation and there is no intestinal metaplasia, dysplasia or malignancy. Warthin-starry stain for Helicobacter pylori is negative. Deeper levels show a rare dilated oxyntic gland suggestive of a fundic gland polyp.B. Sections of the distal esophagus show squamous and columnar mucosa. The squamous epithelium has basilar hyperplasia with intercellular edema and a rare intraepithelial eosinophil. The columnar mucosa has marked chronic inflammation in the lamina propria. There are no intestinal type goblet cells of Aviles's metaplasia A. Warthin-starry stain - negative for Helicobacter pylori. The interpretation of this case included the use of immunohistochemistry or special stains.Control Slides Examined: In-house known positive controls were evaluated along with the test tissue. These control slides run alongside of the patients sample show appropriate staining. Internal positive and negative controls when available are evaluated Immunohistochemistry technical testing was performed at [facility], Pathology Laboratory where it was developed and its performance characteristics were determined. It has not been cleared or approved by the U.S. Food and Drug Administration. The FDA has determined that such clearance or approval is not necessary. The test is used for clinical purposes. It should not be regarded as investigational or for research. This laboratory is certified under the Clinical Laboratory Improvement Amendments of 1988 (CLIA-88) as qualified to perform high complexity clinical laboratory testing. POCT-GLUCOSE METER 2021-01-22 14:15:55 Test Item Value Reference Range Interpretation Comme [facility] POC-GLUCOSE METER (BEAKER) 137 mg/dL 70-110 H : TESTED AT [facility] [address] [facility] (test code = 1538) [place] [address]: Humidifier Maintenance Worker/Techni sree ID = [id number] for GRZEGORZ VIRGEN TISSUE [id number] 17:01:47Surgical Pathology Report Case: [id number] Authorizing Provider: aJred Anderson, Collected: 11/20/2020 01:47 PM Ordering Location: [address] Received: 11/20/2020 03:50 PM Ser vice Pathologist: Alejo Mcnally MD Specimens: A) - Biopsy, Gastric, random gastric bx B) - Distal Esophagus, distal esophagus bx A. STOMACH, RANDOM, BIOPSY- CHRONIC INACTIVE GASTRITIS, MINIMAL-MILD- NO INTESTINAL METAPLASIA, DYSPLASIA OR CARCINOMA IDENTIFIED- NO HELICOBACTER PYLORI LIKE ORGANISMS I DENTIFIED ON WARTHIN STARRY STAINB, ESOPHAGUS, DISTAL, BIOPSY- SQUAMO-COLUMNAR EPITHELIUM WITHOUT INTESTINAL METAPLASIA - FRAGMENT OF UNREMARKABLE SQUAMOUS EPITHELIUM- FRAGMENT OF OXYNTIC TYPE MUCOSA WITH MILD CHRONIC INFLAMMATION- NEGATIVE FOR DYSPLASIA OR CARCINOMA- CHRONIC CARDITIS, MILD Signing Pathologist Direct Phone Line: [phone] signed by Alejo Mcnally MD on 11/21/2020 at5:01 [id number] X 2, [id number] bleedA. Biopsy, gastricB. Distal esophagusAll specimens are received in formalin labelled with the patient's name and medical record number. A. "Random gastric biopsy" consists of 5 sheth-pink mucosa-covered tissue fragments (from 0.1 cm to 0.2 cm in greatest dimension). The specimen is submitted in toto in cassette A1.B. "Distal esophagus biopsy" consists of 4 sheth-pink mucosa-covered tissue fragments (from 0.1 cm to 0.2 cm in greatest dimension). The specimen is submitted intoto in cassette B1.KL (resident)Performed.The interpretation of this case included the use of immuno histochemistry or special stains.Control Slides Examined: In-house known positive controls were evaluated along with the test tissue. These control slides run alongside of the patients sample show appropriate staining. Internal positive and negative controls when available are evaluated Immunohistochemistry technical testing was performed at [facility], Pathology Laboratory where it was developed and its performance characteristics were determined. It has not been cleared or approved by the U.S. Food and Drug Administration. The FDA has determined that such clearance or approval is not necessary. The test is used for clinical purposes. It should not be regarded as investigational or for research. This laboratory is certified under the Clinical Laboratory Improvement Amendments of 1988 (CLIA-88) as qualified to perform high complexity clinical laboratory testing.[facility], Department of Pathology, [address] [place] [address], [facility], [facility] of [facility], [address] [place] [address], [facility] of [facility], [address] [place] [address], APNT-GLUCOSE [id number] 14:56:45 Test Item Value Reference Range Interpretation Comments POC-GLUCOSE METER 123 mg/dL 70-110 H : Notified RN/: (ANIBAL) (test code = TESTED AT [facility] [id number]) [facility], [address]: Humidifier Maintenance Worker/Techni sree ID = [id number] for Jeanine Mccracken SARS-COV2/RT-PCR ([facility])2020-11-20 13:49:11 Test Item Value Reference Range Interpretation Comments SARS-COV2/RT-PCR Negative Negative The SARS-Co V-2 target (test code = nucleic acids a re not [id number]) detected in thi s specimen. Negative result s do not preclude SARS-C oV-2 infection and s hould not be used as the ian e basis for patient managem ent decisions. Nega tive results must be combine d with clinical observ ations, patient history , and epidemiological information. A false negativ e result may occur if a spec imen is improperly opal ected, transported or handled. This SARS CoV-2 test is a rapid, real-time RT-PC R test intended for e qualitative detection of nu cleic acid from SARS-CoV-2 in a nasopharyngeal swab specimen collected from individuals suspected of CO VID-19 by their healthcar e provider. This test has been authorized by FDA under an EUA for use by authorized laboratories. This test is only authorized for the duration of the declaration that circumstances exist justifying the authorization of emergency use of in vitro diagnostic tests for detection and/or diagnosis of COVID-19 under Section 564(b)(1) of the Federal Food, Drug and Cosmetic Act, 21 U.S.C. 360bbb-3(b)(1), unless the authorization is terminated or revoked sooner. Fact Sheet for Healthcare Providers: https://www.HubHuman m/Documents/Xpert%20Xpress%20SARS%20CoV-2/Fact%20Sheets/302-3802%98LNTF-ECR-7%20 HEALTHCARE%20PROVIDERS%20FACT%20SHEET.pdf Fact Sheet for Healthcare Patients: https://www.Tiantian. com/Documents/Xpert%20Xp ress%20SARS%20CoV-2/Fact%20Sheets/302-3801%61YTYK-IEU-6%20PATIENT%20FACT%20SHEET .pdfPOCT-GLUCOSE [id number] 13:33:48 Test Item Value Reference Range Interpretation Comments POC-GLUCOSE METER 122 mg/dL 70-110 H : TESTED A T [facility] [address] [facility] (test code = [facility]OM[facility], 1538) [address]: Humidifier Maintenance Worker/Techni sree ID = [id number] for HILARIO [place] BASIC METABOLIC [id number] 06:09:57 Test Item Value Reference Range Interpretation Comments SODIUM (BEAKER) 140 meq/L 136-145 (test code = 381) POTASSIUM (BEAKER) 3.8 meq/L 3.5-5.1 (test code = 379) CHLORIDE (BEAKER) 108 meq/L 98-107 H (test code = 382) CO2 (BEAKER) (test 26 meq/L 22-29 code = 355) BLOOD UREA NITROGEN 7 mg/dL 7-21 (BEAKER) (test code = 354) CREATININE (BEAKER) 0.68 mg/dL 0.57-1.25 (test code = 358) GLUCOSE RANDOM 130 mg/dL 70-105 H (BEAKER) (test code = 652) CALCIUM (BEAKER) 8.7 mg/dL 8.4-10.2 (test code = 697) EGFR (BEAKER) (test 116 mL/min/1.73 ESTIM ATED GFR IS code = 1092) sq m NOT ACCURATE CREATININE CLEARANCE IN PREDICTING GLOMERULAR FILTRATION RATE . ESTIMATED GFR I S NOT APPLICABLE FOR DIALYSIS PATIEN TS. Humidifier Maintenance Worker ID - SIMEON MCBC W/PLT COUNT & AUTO [id number] 05:45:43 Test Item Value Reference Range Interpretation Comments WHITE BLOOD CELL COUNT (BEAKER) 6.3 K/ L 3.5-10.5 (test code = 775) RED BLOOD CELL COUNT (BEAKER) 4.12 M/ L 4.63-6.08 L (test code = 761) HEMOGLOBIN (BEAKER) (test code = 12.2 GM/DL 13.7-17.5 L 410) HEMATOCRIT (BEAKER) (test code = 35.7 % 40.1-51.0 L 411) MEAN CORPUSCULAR VOLUME (BEAKER) 86.7 fL 79.0-92.2 (test code = 753) MEAN CORPUSCULAR HEMOGLOBIN 29.6 pg 25.7-32.2 (BEAKER) (test code = 751) MEAN CORPUSCULAR HEMOGLOBIN CONC 34.2 GM/DL 32.3-36.5 (BEAKER) (test code = 752) RED CELL DISTRIBUTION WIDTH 13.2 % 11.6-14.4 (BEAKER) (test code = 412) PLATELET COUNT (BEAKER) (test 185 K/CU MM 150-450 code = 756) MEAN PLATELET VOLUME (BEAKER) 9.5 fL 9.4-12.4 (test code = 754) NUCLEATED RED BLOOD CELLS 0 /100 WBC 0-0 (BEAKER) (test code = 413) NEUTROPHILS RELATIVE PERCENT 56 % (BEAKER) (test code = 429) LYMPHOCYTES RELATIVE PERCENT 33 % (BEAKER) (test code = 430) MONOCYTES RELATIVE PERCENT 7 % (BEAKER) (test code = 431) EOSINOPHILS RELATIVE PERCENT 3 % (BEAKER) (test code = 432) BASOPHILS RELATIVE PERCENT 1 % (BEAKER) (test code = 437) NEUTROPHILS ABSOLUTE COUNT 3.53 K/ L 1.78-5.38 (BEAKER) (test code = 670) LYMPHOCYTES ABSOLUTE COUNT 2.08 K/ L 1.32-3.57 (BEAKER) (test code = 414) MONOCYTES ABSOLUTE COUNT (BEAKER) 0.44 K/ L 0.30-0.82 (test code = 415) EOSINOPHILS ABSOLUTE COUNT 0.20 K/ L 0.04-0.54 (BEAKER) (test code = 416) BASOPHILS ABSOLUTE COUNT (BEAKER) 0.03 K/ L 0.01-0.08 (test code = 417) IMMATURE GRANULOCYTES-RELATIVE 1 % 0-1 PERCENT (BEAKER) (test code = 2801) HEMOGLOBIN AND [id number] 00:00:56 Test Item Value Reference Range Interpretation Comments HEMOGLOBIN (BEAKER) (test code = 11.7 GM/DL 13.7-17.5 L 410) HEMATOCRIT (BEAKER) (test code = 33.1 % 40.1-51.0 L 411) Humidifier Maintenance Worker ID - [id number] AND [id number] 17:44:45 Test Item Value Reference Range Interpretation Comments HEMOGLOBIN (BEAKER) (test code = 12.3 GM/DL 13.7-17.5 L 410) HEMATOCRIT (BEAKER) (test code = 34.0 % 40.1-51.0 L 411) Humidifier Maintenance Worker ID - [id number] AND [id number] 11:41:23 Test Item Value Reference Range Interpretation Comments HEMOGLOBIN (BEAKER) (test code = 12.3 GM/DL 13.7-17.5 L 410) HEMATOCRIT (BEAKER) (test code = 34.7 % 40.1-51.0 L 411) Humidifier Maintenance Worker ID - [id number] 05:15:47 Test Item Value Reference Range Interpretation Comments MAGNESIUM (BEAKER) (test code = 2.1 mg/dL 1.6-2.6 627) Humidifier Maintenance Worker ID - jrlCOMPREHENSIVE METABOLIC [id number] 05:15:46 Test Item Value Reference Range Interpretation Comments TOTAL PROTEIN 6.0 gm/dL 6.0-8.3 (BEAKER) (test code = 770) ALBUMIN (BEAKER) 3.6 g/dL 3.5-5.0 (test code = 1145) ALKALINE PHOSPHATASE 93 U/L 40-150 (BEAKER) (test code = 346) BILIRUBIN TOTAL 0.3 mg/dL 0.2-1.2 (BEAKER) (test code = 377) SODIUM (BEAKER) (test 140 meq/L 136-145 code = 381) POTASSIUM (BEAKER) 3.9 meq/L 3.5-5.1 (test code = 379) CHLORIDE (BEAKER) 107 meq/L 98-107 (test code = 382) CO2 (BEAKER) (test 28 meq/L 22-29 code = 355) BLOOD UREA NITROGEN 14 mg/dL 7-21 (BEAKER) (test code = 354) CREATININE (BEAKER) 0.70 mg/dL 0.57-1.25 (test code = 358) GLUCOSE RANDOM 123 mg/dL 70-105 H (BEAKER) (test code = 652) CALCIUM (BEAKER) 8.7 mg/dL 8.4-10.2 (test code = 697) AST (SGOT) (BEAKER) 15 U/L 5-34 (test code = 353) ALT (SGPT) (BEAKER) 20 U/L 6-55 (test code = 347) EGFR (BEAKER) (test 112 ESTIMATE D GFR IS code = 1092) mL/min/1.73 sq NOT ACCURA TE m CREATININE CLEARANCE IN PREDICTING GLOMERULAR FILTRATION RATE . ESTIMATED GFR I S NOT APPLICABLE FOR DIALYSIS PATIEN TS. Humidifier Maintenance Worker ID - jrlCBC W/PLT COUNT & AUTO [id number] 05:13:25 Test Item Value Reference Range Interpretation Comments WHITE BLOOD CELL COUNT (BEAKER) 6.4 K/ L 3.5-10.5 (test code = 775) RED BLOOD CELL COUNT (BEAKER) 4.08 M/ L 4.63-6.08 L (test code = 761) HEMOGLOBIN (BEAKER) (test code = 12.2 GM/DL 13.7-17.5 L 410) HEMATOCRIT (BEAKER) (test code = 36.0 % 40.1-51.0 L 411) MEAN CORPUSCULAR VOLUME (BEAKER) 88.2 fL 79.0-92.2 (test code = 753) MEAN CORPUSCULAR HEMOGLOBIN 29.9 pg 25.7-32.2 (BEAKER) (test code = 751) MEAN CORPUSCULAR HEMOGLOBIN CONC 33.9 GM/DL 32.3-36.5 (BEAKER) (test code = 752) RED CELL DISTRIBUTION WIDTH 13.6 % 11.6-14.4 (BEAKER) (test code = 412) PLATELET COUNT (BEAKER) (test 185 K/CU MM 150-450 code = 756) MEAN PLATELET VOLUME (BEAKER) 9.8 fL 9.4-12.4 (test code = 754) NUCLEATED RED BLOOD CELLS 0 /100 WBC 0-0 (BEAKER) (test code = 413) NEUTROPHILS RELATIVE PERCENT 43 % (BEAKER) (test code = 429) LYMPHOCYTES RELATIVE PERCENT 44 % (BEAKER) (test code = 430) MONOCYTES RELATIVE PERCENT 8 % (BEAKER) (test code = 431) EOSINOPHILS RELATIVE PERCENT 4 % (BEAKER) (test code = 432) BASOPHILS RELATIVE PERCENT 1 % (BEAKER) (test code = 437) NEUTROPHILS ABSOLUTE COUNT 2.76 K/ L 1.78-5.38 (BEAKER) (test code = 670) LYMPHOCYTES ABSOLUTE COUNT 2.81 K/ L 1.32-3.57 (BEAKER) (test code = 414) MONOCYTES ABSOLUTE COUNT (BEAKER) 0.53 K/ L 0.30-0.82 (test code = 415) EOSINOPHILS ABSOLUTE COUNT 0.25 K/ L 0.04-0.54 (BEAKER) (test code = 416) BASOPHILS ABSOLUTE COUNT (BEAKER) 0.04 K/ L 0.01-0.08 (test code = 417) IMMATURE GRANULOCYTES-RELATIVE 1 % 0-1 PERCENT (BEAKER) (test code = 2801) [id number] 05:09:41 Test Item Value Reference Range Interpretation Comments PARTIAL THROMBOPLASTIN TIME 29.2 seconds 22.5-36.0 (BEAKER) (test code = 760) PROTHROMBIN TIME/[id number] 05:08:58 Test Item Value Reference Range Interpretation Comments PROTIME (BEAKER) 14.7 seconds 11.9-14.2 H (test code = 759) INR (BEAKER) (test 1.17 See_Comment [Automat ed message] code = 370) The system [employer]uba generated this result transmitted ref erence range: <=5.90. The reference range was not used to int erpret this result as normal/abnormal . RECOMMENDED COUMADIN/WARFARIN INR THERAPY RANGESSTANDARD DOSE: 2.0 - 3.0 Includes: PROPHYLAXIS for venous thrombosis, systemic embolization; TREATMENT for venous thrombosis and/or pulmonary embolus.HIGH RISK: Target INR is 2.5-3.5 for patients with mechanical heart valves.HEMOGLOBIN AND [id number] 04:54:12 Test Item Value Reference Range Interpretation Comments HEMOGLOBIN (BEAKER) (test code = 12.2 GM/DL 13.7-17.5 L 410) HEMATOCRIT (BEAKER) (test code = 36.0 % 40.1-51.0 L 411) TISSUE [id number] 18:01:00Surgical Pathology Report Case: [id number] Authorizing Provider: Noe Chaves MD Collected: 07/08/2020 08:33 AM Ordering Location: [facility] PERIOPERATIVE Received: 07/08/2020 10:18 AM SERVICES Pathologist: Osito Cid MD Specimen: Hydrocele Sac, right hydrocele sac HYDROCELE SAC, RIGHT, HYDROCELECTOMY: - MESOTHELIAL LINED FIBROADIPOSE TISSUE CONSISTENT WITH HYDROCELE SAC Signing Pathologist Direct Phone Line: [phone] signed by Osito Cid MD on 07/10/2020 at 6: 01 [id number] Hydrocele, Hydrocele SacReceived fresh labeled the patient's name, accession number and "right hydrocele sac" is a 5.5 x 2.0 x 0.1 cm sheth- pink, fibromembranous soft tissue. Tape Editor sections are submitted in A1.AUDREY Rosado, HT (ASCP)Performed.POCT-GLUCOSE [id number] 10:46:00 Test Item Value Reference Range Interpretation Comments POC-GLUCOSE METER 154 mg/dL 70-110 H : TESTED A T [facility] 6720 (BEAKER) (test code = TOMI INF[address], 1538) [id number]: Humidifier Maintenance Worker/Techni sree ID = [id number] for WILLIAM DELAROSA POCT-GLUCOSE [id number] 07:38:00 Test Item Value Reference Range Interpretation Comments POC-GLUCOSE METER 127 mg/dL 70-110 H : TESTED A T [facility] 6720 (BEAKER) (test code = [facility], 153) [id number]: Humidifier Maintenance Worker/Techni sree ID = [id number] for RANDALL CARRASQUILLO POCT-GLUCOSE [id number] 12:04:00 Test Item Value Reference Range Interpretation Comments POC-GLUCOSE METER 223 mg/dL 70-110 H : TESTED A T [facility] 6720 (BEAKER) (test code = [facility], 153) [id number]: Humidifier Maintenance Worker/Techni sree ID = [id number] for FAISAL MONDRAGON POCT-GLUCOSE [id number] 08:15:00 Test Item Value Reference Range Interpretation Comments POC-GLUCOSE METER 141 mg/dL 70-110 H : TESTED A T [facility] 6720 (BEAKER) (test code = [facility], 153) 39033: Humidifier Maintenance Worker/Techni sree ID = [id number] for NG JENNIFER, YAMILETH CBC W/PLT COUNT & AUTO [id number] 05:50:00 Test Item Value Reference Range Interpretation [...] 0-1 PERCENT (BEAKER) (test code = 2801) BASIC METABOLIC [id number] 05:18:00 Test Item Value Reference Range Interpretation [...] S NOT APPLICABLE FOR DIALYSIS PATIEN TS. Humidifier Maintenance Worker ID - EDASIPOCT-GLUCOSE [id number] 21:38:00 Test Item Value Reference Range Interpretation Comments POC-GLUCOSE METER 116 mg/dL 70-110 H : TESTED A T [facility] 6720 (BEAKER) (test code = [facility], 1538) 93967: Humidifier Maintenance Worker/Techni sree ID = [id number] for SONAM IQBAL TTVinny HEMOGLOBIN AND [id number] 19:34:00 Test Item Value Reference Range Interpretation Comments HEMOGLOBIN (BEAKER) (test code = 7.9 GM/DL 13.7-17.5 L 410) HEMATOCRIT (BEAKER) (test code = 23.2 % 40.1-51.0 L 411) Humidifier Maintenance Worker ID - [id number]-GLUCOSE [id number] 16:23:00 Test Item Value Reference Range Interpretation Comments POC-GLUCOSE METER 140 mg/dL 70-110 H : TESTED A T [facility] 6720 (BEAKER) (test code = [facility], 1538) 86207: Humidifier Maintenance Worker/Techni sree ID = [id number] for CRISTY YUSUF POCT-GLUCOSE [id number] 12:22:00 Test Item Value Reference Range Interpretation Comments POC-GLUCOSE METER 154 mg/dL 70-110 H : TESTED A T [facility] 6720 (BEAKER) (test code = [facility], 1538) 88398: Humidifier Maintenance Worker/Techni sree ID = [id number] for LUCIA FONSECA COLLEEN CT, [id number] 10:48:00FINAL REPORT TECHNIQUE: CT of the abdomen and pelvis WITH intravenous contrast and WITHOUT oral contrast. Dose modulation, iterative reconstruction, and/or weight-based adjustment of the mA/kV was utilized to reduce the radiation dose to as low as reasonably achievable. INDICATION: GI bleedabnormal gastric submucosal lesion on EGD, evaluate for other abnormal abdominal pathology.COMPARISON: None. FINDINGS: LOWER THORAX: A right middle lobe pulmonary nodule measures 0.4 cm on axial image 1. A left lower lobe or nodule on coronal image 59 measures 0.4 cm. A left lower lobe pointnodule on coronal image 65 measures 0.3 cm. No routine follow-up imaging is recommended. HEPATOBILIARY: No focal hepatic lesions. Gallbladder is unremarkable. No biliary ductal dilatation.SPLEEN: No splenomegaly.PANCREAS: No focal masses or ductal dilatation. ADRENALS: A left adrenal nodule measures 1.9 cm.KIDNEYS/URETERS: No hydronephrosis, stones, or masses. Left lower pole some renal cyst measuresup to 2.17 m. No routine follow-up imaging is recommended.PELVIC ORGANS/BLADDER: Unremarkable. PERITONEUM/RETROPERITONEUM: No free air or fluid.LYMPH NODES: No lymphadenopathy.VESSELS: Mild aortoiliac c alcification. GI TRACT: There is either surgical or [...] fundoplication. A rounded area adjacent to the fundoplicationhas a cystic density and measures 2.6 cm. This could be a portion of the known submucosal mass. 2.A left adrenal nodule measures 1.9 cm and is probably an adenoma. Follow-up CT of the abdomen with and without intravenous contrast, adrenal mass protocol, is recommended in one year to document stability. Signed: Lorenzo Winter MDReport Verified Date/Time: 09/04/2019 10:48:51 Reading Location: [address] Ortho Consult Reading Room POCT-GLUCOSE [id number] 08:11:00 Test Item Value Reference Range Interpretation Comments POC-GLUCOSE METER 152 mg/dL 70-110 H : TESTED A T [facility] 6720 (BEAKER) (test code = [facility], 1538) 90951: Humidifier Maintenance Worker/Techni sree ID = [id number] for COLLEEN ARAGON BASIC METABOLIC [id number] 07:32:00 Test Item Value Reference Range Interpretation [...] S NOT APPLICABLE FOR DIALYSIS PATIEN TS. Humidifier Maintenance Worker ID - LMCBC W/PLT COUNT & AUTO [id number] 07:10:00 Test Item Value Reference Range Interpretation [...] PERCENT (BEAKER) (test code = 2801) POCT-GLUCOSE [id number] 01:13:00 Test Item Value Reference Range Interpretation Comments POC-GLUCOSE METER 118 mg/dL 70-110 H : TESTED A T [facility] 6720 (BEAKER) (test code = [facility], 1538) 80575: Humidifier Maintenance Worker/Techni sree ID = [id number] for SONAM IQBAL HEMOGLOBIN AND [id number] 14:34:00 Test Item Value Reference Range Interpretation Comments HEMOGLOBIN (BEAKER) (test code = 7.2 GM/DL 13.7-17.5 L 410) HEMATOCRIT (BEAKER) (test code = 21.3 % 40.1-51.0 L 411) Humidifier Maintenance Worker ID - [id number]-GLUCOSE [id number] 14:08:00 Test Item Value Reference Range Interpretation Comments POC-GLUCOSE METER 159 mg/dL 70-110 H : TESTED A T [facility] 6720 (BEAKER) (test code = [facility], 1538) 05290: Humidifier Maintenance Worker/Techni sree ID = [id number] for DOROTA SOLANO HEMOGLOBIN [id number] 08:25:00 Test Item Value Reference Range Interpretation Comments HEMOGLOBIN A1C (BEAKER) (test code = 7.1 % 4.3-6.1 H 368) SARS-COV2/RT-PCR ([facility])2019-09-03 07:16:00 Test Item Value Reference Range Interpretation Comments SARS-COV2/RT-PCR (test code = Negative Not Detected, Negative 2130202) SARS-COV-2 PERFORMING LAB [facility] (test code = 3286071) Negative results do not preclude SARS-CoV-2 infection [...] of the Act.Fact Sheet for Healthcare Pro viders:https://www.[employer]. com/Documents/Xpert%20Xpress%20SARS%20CoV-2/Fact%20Sh eets/3023802%59NIMX-HKC-4%20HEALTHCARE%20PROVIDERS%20FACT%20SHEET.pdfFact Sheet for Healthcare Patients:https://www.[employer]/Documents/Xpert%20Xpress%20SARS%20CoV-2/Fact%20Sheets/3023801%20SARS-COV -2%20PATIENT%20FACT%20SHEET.pdfPerforming Laboratory:[facility], [place] [address]KNOPJ METABOLIC [id number] 06:26:00 Test Item Value Reference Range Interpretation [...] S NOT APPLICABLE FOR DIALYSIS PATIEN TS. Humidifier Maintenance Worker ID - PIAYA LCBC W/PLT COUNT & AUTO [id number] 06:12:00 Test Item Value Reference Range Interpretation [...] PERCENT (BEAKER) (test code = 2801) POCT-GLUCOSE [id number] 00:03:00 Test Item Value Reference Range Interpretation Comments POC-GLUCOSE METER 213 mg/dL 70-110 H : TESTED A T [facility] 6720 (BEAKER) (test code = TOMI Marsh [facility], 1538) 25970: Humidifier Maintenance Worker/Techni sree ID = [id number] for ERLINDA MCDUFFIEHIA B-TYPE NATRIURETIC FACTOR (BNP)2019-09-02 23:35:00 Test Item Value Reference Range Interpretation Comments B-TYPE NATRIURETIC PEPTIDE (BEAKER) < pg/mL 0-100 (test code = 700) Humidifier Maintenance Worker ID - WILBER NOVA [id number] 23:29:00 Test Item Value Reference Range Interpretation [...] failure, acidosis, acute neurological disease, and persistent tachyarrhythmia.Humidifier Maintenance Worker ID - WILBER [id number] 23:21:00 Test Item Value Reference Range Interpretation Comments MAGNESIUM (BEAKER) (test code = 2.1 mg/dL 1.6-2.6 627) Humidifier Maintenance Worker ID - WILBER LCOMPREHENSIVE METABOLIC [id number] 23:21:00 Test Item Value Reference Range Interpretation [...] S NOT APPLICABLE FOR DIALYSIS PATIEN TS. Humidifier Maintenance Worker ID - WILBER LPROTHROMBIN [id number] 23:21:00 Test Item Value Reference Range Interpretation [...] is 2.5-3.5 for patients wiht mechanical heart valves.CBC W/PLT COUNT & AUTO [id number] 23:10:00 Test Item Value Reference Range Interpretation [...] 0-1 PERCENT (BEAKER) (test code = 2801) Notes Date/Time Note Provider Source 2020-07-11 08:32:52-00:[address] [facility] OPERATIVE/PROCEDURE REPORT YOANAANNA FACILITY: [facility] Billing #: [id number] Room: [facility] ED MR #: [id number] : 1950 DATE OF PROCEDURE: 07/08/2020 SURGEON: Noe Chaves MD PREOPERATIVE DIAGNOSIS: Bilateral hydroceles. POSTOPERATIVE DIAGNOSIS: Bilateral hydroceles. PROCEDURE: Bilateral hydrocelectomy RN UNIT MANAGER: Dr. Nghia Ellison. ANESTHESIA: General. PROCEDURE IN DETAIL: With the patient in the sup ine position on the operating table after the induction of an esthesia, the genitalia were shaved, prepped, and draped in th e usual sterile fashion. The patient had large bilateral hydroce les with the right side being the larger one. Both incisions were marked with a marking pen in a transverse curvilinear f ashion. We began on the right side and made a transverse in cision as described and incised this down through the dart os to expose the parietal tunica vaginalis. Using sharp and b hailee dissection, the hydrocele sac was brought up out of the scrotum. There were extensive adhesions medially and inferiorly between the hydrocele sac and the scr otal wall. These were taken down sharply and meticulous hem ostasis was obtained. Once the hydrocele sac was lifted up t owards its cord pedicle, the sac was incised anteriorly and the fluid was drained. A large amount of serous typical hydroc feliz fluid was evacuated. The sac incision was continued superi erna and inferiorly to be able to completely open the sac . A small portion of the sac was excised for pathology. Af ter obtaining meticulous hemostasis, the sac edges were folded posterior to the testis and a running locking 3-0 chromic sut ure was used to sew the suture line upwards towards the cord. Th e suture line was stopped at a point where two fingers could e asily be passed between the posterior sac closure and the cord t o avoid any postoperative compression. We then used a separa te chromic stitch to run in a simple manner the remaining e dges of the sac, producing an excellent appearing result wit h complete hemostasis. The testis was replaced back into th e scrotal compartment and then the same sort of incision a nd exposure and mobilization were performed on the left side. On the left side, there was less fibrosis and less adhesion between the hydrocele sac and the dartos. The same sort of r epair as just described was performed on the left side, again being careful to keep the sac closure loose towards the upper extent of the posterior suture line. Complete irrigation of ralph th sides of the surgery was then performed and meticulous he mostasis was obtained with the electrocautery. Both testes we re replaced back into the scrotal compartment in their natur al orientation. Both wounds were closed using a running 3-0 chr omic for the deeper areolar layer, another running chromic fo r the dartos, and then 4-0 Monocryl subcuticular skin stitches were placed bilaterally. 0.25% plain Marcaine irrigation was used during the closure to place some analgesic fluid into b oth scrotal compartments and along the layers of closure and then the skin edges were injected as well. The wounds were raven aned and dried. Dermabond, Telfa fluffs, and a scrotal mallory pport were applied and the patient was awakened and transfe rred by stretcher to the recovery room in satisfactory c ondition. There were no complications. Blood loss for the whole procedure was less than 20 mL. Counts were corre ct. He tolerated the procedure well. Specimen was as no ron above. BEN/VICL /[id number] cc: Noe Chaves MD
[2022-09-08] MEDS ORDERED: METOPROLOL TAR 50 MG TAB ONE (22:22)
--- NOTE | 2022-09-08 22:28 | RAD REPORT ---
EXAM DESCRIPTION: RAD - Chest Single View - 09/08/2022 10:20 pm CLINICAL HISTORY: CHEST PAIN Chest pain. COMPARISON: Chest Single View dated 06/09/2020; Chest Single View dated 09/02/2019 FINDINGS: Portable technique limits examination quality. The lungs are grossly clear. The heart is normal in size. No displaced fractures. IMPRESSION: No acute intrathoracic process suspected.
[2022-09-08 22:35] LABS: Absolute Lymphocytes (CBC) 3.1 K/uL (0.7-4.9); Hematocrit 44.9 % (39.6-49.0); Lymphocytes % 46.9 % (15.3-44.8); MCV 88.4 fL (80-100); MPV 8.1 fL (7.6-11.3); Protime INR 0.99; RBC Red Blood Cell Count 5.08 M/uL (4.33-5.43)
[2022-09-08 22:55] LABS: ALT/SGPT 51 U/L (16-61); AST/SGOT 21 U/L (15-37); Albumin 3.7 g/dL (3.4-5.0); Alkaline Phosphatase 113 U/L (45-117); BUN Blood Urea Nitrogen 17 mg/dL (7-18); Bicarbonate 26 mEq/L (21-32); Bilirubin Total 0.3 mg/dL (0.2-1.0); Glomerular Filtration Rate 93 ml/min (=/>90); Glucose Level 269 mg/dL (74-106); Magnesium 2.5 mg/dL (1.6-2.4); NT PRO-BNP 47 pg/mL (<125); Potassium 4.1 mEq/L (3.5-5.1); Protein, Total 7.3 g/dL (6.4-8.2); Sodium Level 136 mEq/L (136-145); Troponin High Sensitivity 6.3 pg/mL (<58.9)
[2022-09-08 22:57] LABS: Bilirubin Direct < 0.1 mg/dL (0-0.2); Bilirubin Indirect, Calculated ND mg/dL (0.2-0.8)
--- NOTE | 2022-09-08 23:14 | EDPHYS ---
Physician Documentation [facility] Name: Jeff Medeiros Age: 72 yrs Sex: Male : 1950 Arrival Date: 09/08/2022 Time: 21:47 Bed 4 Private MD: ED Physician Freedom Gresham HPI: 09/08 21:54 This 72 yrs old Male presents to ER via Unassigned with complaints of sp4 Irregular Pulse, Dizziness, Chest Pain. 23:29 Is a very pleasant 72-year-old male with history of qyc-ultrixa-gcoenhjzh diabetes, sp4 intermittent A-fib, high cholesterol, hypertension. Patient presents with a cute onset of palpitations described as fluttering in his heart 2 days ago with near syncopal episode at home secondary to dizziness and lightheadedness. Patient denied any chest pain. Patient's primary MD is Dr. Coy, patient's logistics research engineer is Dr. Del Valle . Patient has history of Mikayla fundoplication. History of prior GI bleed secondary to complications from Mikayla fundoplication. Patient is not on any blood thinners at this time secondary to prior GI bleed. Patient reported elevated blood pressure at home 174/96. Patient is hypertensive on arrival. Historical: - Allergies: 22:06 tramadol; kl - PMHx: 22:06 Diabetes - NIDDM; High Cholesterol; Hypertension; kl - PSHx: 22:06 hernia repair; knee; rotator cuff; kl - Immunization history:: Adult Immunizations up to date. - Social history:: Smoking status: Patient denies any tobacco usage or history of. - Family history:: not pertinent. ROS: 23:29 Constitutional: Negative for fever, chills, and weight loss, Cardiovascular: Negative sp4 for chest pain, and edema, positive for palpitations and near syncopal episode, positive for dizziness and lightheadedness associated with palpitations 23:29 All other systems are negative. Exam: 23:29 Constitutional: This is a well developed, well nourished patient who is awake, alert, sp4 and in no acute distress. Head/Face: Normocephalic, atraumatic. Eyes: Pupils equal round and reactive to light, extra-ocular motions intact. Lids and lashes normal. Conjunctiva and sclera are not injected. Cornea within normal limits. Periorbital areas with no swelling, redness, or edema. ENT: Nares patent. No nasal discharge, no septal abnormalities noted. Tympanic membranes are normal and external auditory canals are clear. Oropharynx with no redness, swelling, or masses, exudates, or evidence of obstruction, uvula midline. Mucous membranes moist. Neck: Trachea midline, no thyromegaly or masses palpated, and no cervical lymphadenopathy. Supple, full range of motion without nuchal rigidity, or vertebral point tenderness. Chest/axilla: Normal chest wall appearance and motion. Nontender with no deformity. No lesions are appreciated. Cardiovascular: Regular rate and rhythm with a normal S1 and S2. No gallops, murmurs, or rubs. Normal PMI, no JVD. No pulse deficits. Respiratory: Lungs have equal breath sounds bilaterally, clear to auscultation and percussion. No rales, rhonchi or wheezes noted. No increased work of breathing, no retractions or nasal flaring. Abdomen/GI: Soft, non-tender, with normal bowel sounds. No distension or tympany. No guarding or rebound. No evidence of tenderness throughout. Back: No spinal tenderness. No costovertebral tenderness. Skin: Warm, dry with normal turgor. Normal color with no rashes, no lesions, and no evidence of cellulitis. MS/ Extremity: Pulses equal, no cyanosis. Neurovascular intact. Full, normal range of motion. Neuro: Awake and alert, GCS 15, oriented to person, place, time, and situation. Cranial nerves II-XII grossly intact. Motor strength 5/5 in all extremities. Sensory grossly intact. Psych: Awake, alert, with orientation to person, place and time. Behavior, mood, and affect are within normal limits 23:29 ECG was reviewed by the Attending Physician. There is normal sinus rhythm at the rate sp4 of 80, EKG time 22 :00 there is normal sinus rhythm, no ST elevation or depression, no ectopy, muscle tremor artifact Vital Signs: 21:55 BP 167 / 99; Pulse 77; Resp 18; Temp 98(TE); Pulse Ox 99% on R/A; Weight 122 kg (M); kl Height 5 ft. 10 in. ; Pain 0/10; 23:11 BP 152 / 99; Pulse 74; Resp 20 S; Pulse Ox 95% on R/A; as6 23:56 BP 146 / 92; Pulse 65; Resp 19; Pulse Ox 96% on R/A; jb4 09/09 01:00 BP 142 / 102; Pulse 64; Resp 16; Pulse Ox 96% ; jb4 02:00 BP 131 / 100; Pulse 67; Resp 14; Pulse Ox 97% on R/A; jb4 03:08 BP 134 / 86; Pulse 64; Resp 17; Pulse Ox 96% on R/A; vc1 09/08 21:55 Body Mass Index 38.59 (122.00 kg, 177.8 cm) 09/08 21:55 Pain Scale: Adult kl MDM: 09/08 22:00 Patient medically screened. sp4 23:29 Differential diagnosis: cardiac arrhythmia, generalized weakness, hypovolemia, sp4 idiopathic dizziness, near-syncope, syncope, vertigo. Data reviewed: vital signs, nurses notes, old medical records, lab test result(s), EKG, radiologic studies, plain films. Consideration of Admission/Observation Patient was admitted/placed on observation. Escalation of care including admission/observation considered. Management of patient was discussed with the following: Hospitalist: Dr. Coy. Buy Boat Operator: Dr. Mauricio . ED course: Patient at this time has elevated blood sugar but otherwise work-up is unremarkable. Troponin negative. EKG normal. Chest x-ray normal. Patient warrants admission for echocardiogram and carotid Doppler to evaluate he is near syncopal episode also for telemetry monitoring overnight. Patient's primary MD was notified. 09/08 21:55 Order name: Basic Metabolic Panel; Complete Time: 23:13 [facility] 09/08 21:55 Order name: CBC with Diff; Complete Time: 23:13 [facility] 09/08 21:55 Order name: LFT's; Complete Time: 23:13 [facility] 09/08 21:55 Order name: Magnesium; Complete Time: 23:13 [facility] 09/08 21:55 Order name: NT PRO-BNP; Complete Time: 23:13 [facility] 09/08 21:55 Order name: PT-INR; Complete Time: 23:13 [facility] 09/08 21:55 Order name: Troponin HS; Complete Time: 23:13 [facility] 09/08 21:55 Order name: XRAY Chest (1 view); Complete Time: 23:13 [facility] 09/08 21:55 Order name: EKG; Complete Time: 21:55 sp4 09/08 21:55 Order name: Cardiac monitoring; Complete Time: 22:33 sp4 09/08 21:55 Order name: EKG - Nurse/Tech; Complete Time: :33 sp4 09/08 21:55 Order name: IV Saline Lock; Complete Time: 22:33 sp4 09/08 21:55 Order name: Labs collected and sent; Complete Time: : sp4 09/08 21:55 Order name: O2 Per Protocol; Complete Time: : sp4 09/08 21:55 Order name: O2 Sat Monitoring; Complete Time: : sp4 EC:29 Rate is 80 beats/min. Rhythm is regular, Normal Sinus Rhythm. QRS Snover is Normal. ME sp4 interval is normal. QRS interval is normal. QT interval is normal. T waves are Normal. No ST changes noted. Clinical impression: No evidence of ischemia. Interpreted by me. Administered Medications: 22:13 Drug: Metoprolol PO 50 mg Route: PO; 23:21 Follow up: Response: No adverse reaction as6 Disposition Summary: 09/08/22 23:14 Hospitalization Ordered Hospitalization Status: Inpatient Admission sp4 Provider: Pawan Coy sp4 Location: Telemetry/[facility] (Inpatient) sp4 Condition: Stable sp4 Problem: new sp4 Symptoms: have improved sp4 Bed/Room Type: Standard sp4 Room Assignment: 223(09/09/22 02:16) eb1 Diagnosis - Syncope Near sp4 - Palpitations sp4 Forms: - Medication Reconciliation Form sp4 - SBAR form sp4 Signatures: Dispatcher [employer] Kindra Torres RN Elvi Reyes RN RN eb1 Freedom Gresham MD MD sp4 Daren Esquivel RN as6 Corrections: (The following items were deleted from the chart) 09/09 02:16 09/08 23:14 sp4 eb1
--- NOTE | 2022-09-08 23:14 | ER ---
Nurse's Notes [facility] Name: Jeff Medeiros Age: 72 yrs Sex: Male : 1950 Arrival Date: 09/08/2022 Time: 21:47 Bed 4 Private MD: Diagnosis: Syncope Near;Palpitations Presentation: 09/08 21:55 Chief complaint: Patient states: began feeling dizzy and irregular heart beat off and kl on x 2 days. Coronavirus screen: Vaccine status: Patient reports receiving the 2nd dose of the covid vaccine. Ebola Screen: Patient negative for fever greater than or equal to 101.5 degrees Fahrenheit, and additional compatible Ebola Virus Disease symptoms. Initial Sepsis Screen: Does the patient meet any 2 criteria? No. Patient's initial sepsis screen is negative. Does the patient have a suspected source of infection? No. Patient's initial sepsis screen is negative. Risk Assessment: Do you want to hurt yourself or someone else? Patient reports no desire to harm self or others. 21:55 Method Of Arrival: Ambulatory kl 21:55 Acuity: SHARON 3 kl Triage Assessment: 22:07 General: Appears in no apparent distress. comfortable, Behavior is calm, cooperative. kl Pain: Denies pain. EENT: No deficits noted. No signs and/or symptoms were reported regarding the EENT system. Neuro: Level of Consciousness is awake, alert, obeys commands, Oriented to person, place, time, situation, Speech is normal, Facial symmetry appears normal, Pupils are PERRLA. Cardiovascular: Reports lightheadedness, since x 2 days off and on Rhythm is sinus rhythm. Respiratory: No deficits noted. Airway is patent Trachea midline Respiratory effort is even, unlabored, Respiratory pattern is regular, symmetrical. GI: No deficits noted. No signs and/or symptoms were reported involving the gastrointestinal system. : No deficits noted. No signs and/or symptoms were reported regarding the genitourinary system. Derm: No deficits noted. No signs and/or symptoms reported regarding the dermatologic system. Musculoskeletal: No deficits noted. No signs and/or symptoms reported regarding the musculoskeletal system. Historical: - Allergies: 22:06 tramadol; kl - PMHx: 22:06 Diabetes - NIDDM; High Cholesterol; Hypertension; kl - PSHx: 22:06 hernia repair; knee; rotator cuff; kl - Immunization history:: Adult Immunizations up to date. - Social history:: Smoking status: Patient denies any tobacco usage or history of. - Family history:: not pertinent. Screenin:23 [facility] ED Fall Risk Assessment (Adult) History of falling in the last 3 months, kl including since admission No falls in past 3 months (0 pts) Confusion or Disorientation No (0 pts) Intoxicated or Sedated No (0 pts) Impaired Gait No (0 pts) Mobility Assist Device Used No (0 pt) Altered Elimination No (0 pt) Score/Fall Risk Level 0 - 2 = Low Risk Oriented to surroundings, Maintained a safe environment. Abuse screen: Denies threats or abuse. Nutritional screening: No deficits noted. Tuberculosis screening: No symptoms or risk factors identified. Assessment: 22:17 Reassessment: see triage assessment. 23:00 Reassessment: Patient appears in no apparent distress at this time. Patient and/or jb4 family updated on plan of care and expected duration. Pain level reassessed. Patient is alert, oriented x 3, equal unlabored respirations, skin warm/dry/pink. 23:54 Reassessment: Patient appears in no apparent distress at this time. Patient and/or jb4 family updated on plan of care and expected duration. Pain level reassessed. Patient is alert, oriented x 3, equal unlabored respirations, skin warm/dry/pink. 09/09 00:13 Reassessment: No changes from previously documented assessment. Patient and/or family vc1 updated on plan of care and expected duration. Pain level reassessed. Patient is alert, oriented x 3, equal unlabored respirations, skin warm/dry/pink. 01:15 Reassessment: Patient appears in no apparent distress at this time. Patient and/or jb4 family updated on plan of care and expected duration. Pain level reassessed. Patient is alert, oriented x 3, equal unlabored respirations, skin warm/dry/pink. 02:30 Reassessment: Patient appears in no apparent distress at this time. Patient and/or jb4 family updated on plan of care and expected duration. Pain level reassessed. Patient is alert, oriented x 3, equal unlabored respirations, skin warm/dry/pink. 03:08 Reassessment: No changes from previously documented assessment. Patient and/or family vc1 updated on plan of care and expected duration. Pain level reassessed. Vital Signs: 09/08 21:55 BP 167 / 99; Pulse 77; Resp 18; Temp 98(TE); Pulse Ox 99% on R/A; Weight 122 kg (M); kl Height 5 ft. 10 in. ; Pain 0/10; 23:11 BP 152 / 99; Pulse 74; Resp 20 S; Pulse Ox 95% on R/A; as6 23:56 BP 146 / 92; Pulse 65; Resp 19; Pulse Ox 96% on R/A; jb4 09/09 01:00 BP 142 / 102; Pulse 64; Resp 16; Pulse Ox 96% ; jb4 02:00 BP 131 / 100; Pulse 67; Resp 14; Pulse Ox 97% on R/A; jb4 03:08 BP 134 / 86; Pulse 64; Resp 17; Pulse Ox 96% on R/A; vc1 09/08 21:55 Body Mass Index 38.59 (122.00 kg, 177.8 cm) 09/08 21:55 Pain Scale: Adult ED Course: 09/08 21:52 Patient arrived in ED. jj6 21:54 Freedom Gresham MD is Attending Physician. sp4 22:06 Triage completed. kl 22:08 EKG completed in triage. Results shown to MD. 22:21 XRAY Chest (1 view) In Process Unspecified. EDMS 22:24 Patient has correct armband on for positive identification. Placed in gown. Bed in low kl position. Side rails up X2. Client placed on continuous cardiac and pulse oximetry monitoring. NIBP monitoring applied. 22:24 No provider procedures requiring assistance completed. Inserted saline lock: 20 gauge kl in left antecubital area, using aseptic technique. Blood collected. 23:11 Daren Esquivel, RN is Primary Nurse. as6 23:13 Pawan Coy MD is Hospitalizing Provider. sp4 23:30 Arm band placed on right wrist. vc1 09/09 00:42 Primary Nurse role handed off by Daren Esquivel, RN jb4 00:42 Mariano Giordano, SILVESTRE is Primary Nurse. jb4 03:09 Patient admitted, IV remains in place. vc1 03:09 Patient maintains SpO2 saturation greater than 95% on room air. vc1 Administered Medications: 09/08 22:13 Drug: Metoprolol PO 50 mg Route: PO; 23:21 Follow up: Response: No adverse reaction as6 Medication: 09/09 03:09 VIS not applicable for this client. vc1 Outcome: 09/08 23:14 Decision to Hospitalize by Provider. sp4 09/09 03:09 Condition: good vc1 Instructed on the need for admit. 03:09 Admitted to Med/surg accompanied by tech, via wheelchair, room 223. vc1 03:10 Patient left the ED. vc1 Signatures: Dispatcher [employer] EDKindra Simpson RN RN kl Bryson, James, RN RN jb4 Latesha Sharpe6 Daren Esquivel RN RN as6 Gina Serrato RN RN vc1 Freedom Gresham MD MD sp4
[2022-09-09] MEDS ORDERED: ALBUTEROL 2.5 MG/3 ML NEB SOL NEB PRN (03:13)
[2022-09-09] MEDS ORDERED: ACETAMINOPHEN 325 MG TABLET PO PRN (03:13)
[2022-09-09] MEDS ORDERED: ZOLPIDEM TARTRATE 5 MG TABLET PO PRN (03:13)
[2022-09-09] MEDS ORDERED: ONDANSETRON 4 MG/2 ML VIAL IV PRN (03:13)
[2022-09-09 04:08] VITALS: BMI 34.5
[2022-09-09 05:19] LABS: Troponin High Sensitivity 6.8 pg/mL (<58.9)
[2022-09-09] MEDS: INSULIN -REGULAR HUMAN 50 UNIT/0.5 ML ML SQ SCH ×4 (07:30→19:56)
[2022-09-09 07:49] LABS: Specific Gravity 1.019 (1.005-1.030); Urine Bilirubin NEGATIVE (Negative); Urine Blood Negative (Negative); Urine Clarity Clear (Clear); Urine Color Light-Yellow (Yellow); Urine Glucose 3+ (Negative); Urine Protein NEGATIVE (Negative); Urine Urobilinogen Normal (Normal); Urine pH 5.5 (5.0-7.0)
[2022-09-09] MEDS: ROSUVASTATIN 10 MG TAB PO SCH (08:58)
[2022-09-09] MEDS ORDERED: ACETAMINOPHEN 500 MG TAB PO SCH (09:00)
[2022-09-09] MEDS ORDERED: METFORMIN HCL 500 MG TAB PO SCH ×2 (09:00→17:30)
--- NOTE | 2022-09-09 11:05 | RAD REPORT ---
EXAM DESCRIPTION: - CP - 09/09/2022 10:53 am CLINICAL HISTORY: syncope Headache, drowsiness COMPARISON: No comparisons TECHNIQUE: Real-time sonographic evaluation of both carotid systems was performed. Doppler interroga tion was performed with waveform tracing bilaterally. FINDINGS: Normal high resistance waveforms are noted in both external carotid arteries. The common c arotid arteries and internal carotid arteries show normal low resistance waveforms. Mild hard plaque is seen right carotid bulb and proximal right internal carotid artery. Mild hard asia que also noted left carotid bulb. Peak systolic and end diastolic velocity values and the ICA/CCA rat ios are in the non-hemodynamically significant range. Antegrade flow seen in both vertebral arteries. IMPRESSION: Mild hard plaquing is seen in both carotid bulbs and proximal internal carotid arteries. No evidence of a hemodynamically significant stenosis.
--- NOTE | 2022-09-09 13:19 | EKG ---
Test Date: 2022-09-08 Test Time: 22:00:06 Public Records Officer: JEEVAN MEASUREMENT RESULTS: Intervals: Rate: 80 NC: 168 QRSD: 70 QT: 372 QTc: 429 [place]: P: 16 NC: 168 QRS: 4 T: 51 INTERPRETIVE STATEMENTS: Normal sinus rhythm Normal ECG Compared to ECG 06/09/2020 12:41:13 No significant changes Electronically Signed On 09-09-22 13:18:14 CDT by Justo Mauricio
[2022-09-09] MEDS: BISOPROLOL 5 MG TABLET PO SCH (13:43)
[2022-09-09] MEDS ORDERED: ACETAMINOPHEN 500 MG TAB PO PRN (15:20)
--- NOTE | 2022-09-09 16:13 | RAD REPORT ---
EXAM DESCRIPTION: MRI - MRA Head Wo Cont - 09/09/2022 3:48 pm CLINICAL HISTORY: syncope CVA COMPARISON: Carotid Artery Bilateral dated 09/09/2022 FINDINGS: 3D noncontrast [id number] MR angiography of the [place] was performed. No aneurysm, flow-limiting stenosis or vascular malformation is seen. Forward flow seen in codominant vertebral arteries. 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 The visualized dural venous sinuses appear patent. IMPRESSION: No significant flow abnormality of the [place] is identified.
--- NOTE | 2022-09-09 21:16 | P.HP ---
Patient History Date of Service: 09/09/22 Reason for admission: PALPITATIONS, DIZZINESS History of Present Illness: ANNA HAS DM AND CAD BY HISTORY. HE HAS TWO DAYS OF PALPITATIONS OFF AND ON AND DIZZINESS. HE HAS NO CHEST PAIN OR DYSPNEA. I ORDERED MRA OF BRAIN AND CAROTID DOPPLER THAT ARE NEGATIVE. DR. ROBLES WANTS TO DO CATH IN AM. Allergies No Known Allergies Allergy (Verified 09/09/22 03:24) Home medications list reviewed: Yes Home Medications: Acetaminophen [Tylenol Extra Strength] 500 mg PO BID PRN 09/09/22 Losartan Potassium 100 mg PO DAILY 09/09/22 Metformin HCl 2 tab PO DAILY AT SUPPER 09/09/22 Rosuvastatin Calcium 10 mg PO DAILY 09/09/22 - Past Medical/Surgical History Has patient received pneumonia vaccine in the past: Yes Diabetic: Yes -: DM -: High cholesterol -: HTN -: Hernia repair -: Knee rotator cuff repair - Social History Smoking Status: Former smoker Alcohol use: No CD- Drugs: No Caffeine use: No Place of Residence: Home Review of Systems 10-point ROS is otherwise unremarkable Physical Examination - Vital Signs Temperature: 98.3 F Blood Pressure: 132/90 Pulse: 68 Respirations: 24 Pulse Ox (%): 95 - Physical Exam General: Alert, In no apparent distress HEENT: Atraumatic, PERRLA, Mucous membr. moist/pink, EOMI, Sclerae nonicteric Neck: Supple, 2+ carotid pulse no bruit, No LAD, Without JVD or thyroid abnormality Respiratory: Clear to auscultation bilaterally, Normal air movement Cardiovascular: Regular rate/rhythm, Normal S1 S2 Gastrointestinal: Normal bowel sounds, No tenderness Musculoskeletal: No tenderness Integumentary: No rashes Neurological: Normal gait, Normal speech, Normal strength at 5/5 x4 extr, Normal tone, Normal affect Lymphatics: No axilla or inguinal lymphadenopathy - Studies Laboratory Data (last 24 hrs) 09/08/22 22:05: PT 10.9, INR 0.99 09/08/22 22:05: WBC 6.70, Hgb 15.4, Hct 44.9, Plt Count 198 09/08/22 22:05: Sodium 136, Potassium 4.1, BUN 17, Creatinine 0.88, Glucose 269 H, Magnesium 2.5 H, Total Bilirubin 0.3, AST 21, ALT 51, Alkaline Phosphatase 113 Assessment and Plan - Problems (Diagnosis) (1) Palpitation Current Visit: Yes Status: Acute Plan: SO FAR NO SIGNS OF A FIB OR ANY OTHER RHYTHM ISSUES MAY NEED EVENT MONITOR IN NEAR FUTURE DR. ROBLES WILL DO CATH IN AM. FOLLOWING IS THE HISTORY. 2019 Lumbar radicular pain [M54.16 (724.4)] 2019 Otalgia [H92.09 (388.70)] 2019 HTN (hypertension) [I10 (401.9)] 2020 Esophageal ulcer [K22.10 (530.20)] 2020 CAD (coronary artery disease) [I25.10 (414.00)] 60-70% PERCENT BLOCK. 60-70% PERCENT BLOCK. 2020 Coronary artery disease due to type 2 diabetes mellitus [E11.59, I25.10 (250.80, 414.00) 0.3] 202 Obesity (BMI 30-39.9) [E66.9 (278.00)] (2) Dizziness Current Visit: Yes Status: Acute (3) Coronary artery disease due to type 2 diabetes mellitus Current Visit: Yes Status: Acute - Advance Directives Does patient have a Living Will: No Does patient have a Durable POA for Healthcare: No
--- NOTE | 2022-09-09 23:57 | CON ---
Date of Consultation: 09/09/2022 Reason For Consultation: Near-syncope and dizziness. History Of Present Illness: 72-year-old male presented to the emergency room complaining of feeling dizzy and having chest pain. He has past medical history of diabetes; atrial fibrillation, paroxysma l; dyslipidemia; hypertension. He claims that his heart has been fluttering for the past 2 days, on and off, with dizziness and lightheadedness, but there is no actual syncope. Denies having any activ e shortness of breath. Past Medical History: Diabetes, hypertension, dyslipidemia. Medications: Refer to reconciliation sheet for detailed list. Allergies: NO KNOWN DRUG ALLERGIES. Family History: No premature coronary artery disease or cancer. Social History: He does not smoke or drink. Does not use any drugs. Review of Systems: All systems reviewed, they are negative except for mentioned in HPI. Physical Examination: Vital Signs: Temperature is 98.3, pulse 68, breathing at 18, blood pressure 132/90, saturating 95%. General: Pleasant elderly male, in no apparent distress. Head and Neck: Pupils are equal, reactive to light. Intact eye movements. No JVD. No cervical lym phadenopathy. Neck is supple. Thyroid is not enlarged. Lungs: Clear to auscultation bilaterally. No rhonchi, rales, or crackles. No accessory muscle use. Heart: Irregular. No extra sounds. Abdomen: Soft, nontender. Bowel sounds positive. No organomegaly. No masses or hernia. No rigidi ty or rebound. Extremities: No clubbing, cyanosis. Intact pulses. Skin: No rash. Neurologic: Alert, awake, oriented x3. No acute focal deficits appreciated. Lymph Nodes: No cervical or axillary lymphadenopathy. Investigations: EKG was normal sinus rhythm, rate of 80, and BUN 13, creatinine 0.85. Assessment/recommendations: 1.Palpitations. EKG is in normal sinus rhythm. Monitor on telemetry. Cardiac enzymes a re negative. I will continue to monitor on telemetry and obtain an echocardiogram. 2.Chest pain. Negative troponins. 3.History of coronary artery disease. I recommend exercise nuclear stress test and an echo and furt her recommendations to follow. 4.Dyslipidemia. Continue statin. SR/MODL Voice ID: [id number] Report ID: [id number]
[2022-09-10 04:35] VITALS: O2SAT 97
[2022-09-10] MEDS: INSULIN -REGULAR HUMAN 50 UNIT/0.5 ML ML SQ SCH ×2 (07:30→11:30)
[2022-09-10] MEDS ORDERED: REGADENOSON 0.4 MG/5 ML SYR IV ONE (07:43)
[2022-09-10] MEDS: ROSUVASTATIN 10 MG TAB PO SCH (09:00)
[2022-09-10] MEDS: BISOPROLOL 5 MG TABLET PO SCH (09:00)
[2022-09-10 12:20] VITALS: BP 161/79; TEMP 97.6
--- NOTE | 2022-09-10 12:37 | RAD REPORT ---
EXAM DESCRIPTION: NM - Rest Stress Cardiac Imaging - 09/10/2022 8:48 am CLINICAL HISTORY: Palpitations, syncope COMPARISON: None. TECHNIQUE: The patient was administered 10.4 mCi of Tc 99m Sestamibi prior to resting SPECT imaging of the heart. The patient was then administered 31.4 mCi of Tc 99m Sestamibi following exercise or ph armacologic stress. Multiplanar SPECT images were reviewed. FINDINGS: Moderate area of diminished radiotracer activity involves the inferior left ventricular my ocardium on rest and stress images. There is extension into the septum. The left ventricular ejection fraction equals 54% IMPRESSION: Moderate apparent fixed perfusion defect involving at the inferoseptal left ventricular myocardium presumably infarction. There is no evidence of stress-induced ischemia
--- NOTE | 2022-09-10 14:14 | TREADPHA ---
DX: PALPITATIONS, NEAR SYNCOPE Date of Study: 09/10/2022 Ht: 5' 10 " Wt: 241 lb 0 oz Consulting Physician: MARGARET MEDICATIONS: TYLENOL, ZEBETA, NOVOLIN-R, GLUCOPHAGE, ZOFRAN, CRESTOR HISTORY: HYPERTENSION, DIABETS MELLITUS TYPE II PHYSICIAL EXAMINATION: RESTING B.P.: 132/89 RESTING H.R.: 60 RESTING EKG: NORMAL SINUS Y PROTOCOL: PHARMACOLOGIC EXERCISE TIME: 3:30 B.P. AT PEAK STRESS: 143/93 IMPRESSION: LEXISCAN STRESS TEST PERFORMED ORDERED. CARDIOLITE INJECTED (SEE NUCLEAR MEDICINE REPORT). NO SUPRAVENTRICULAR TACHYCARDIA, VENTRICULAR TACHYCARDIA NOTED. NO CHEST PAIN OR SHORTNESS OF BREATH NOTED. PREMATURE VENTRICULAR COMPLEXES, PREMATURE ATRIAL COMPLEXES NOTED PRE PROCEDURE, DURING AND POST. NO ELECTROCARDIOGRAM CHANGES OF ISCHEMIA WITH LEXISCAN.
--- NOTE | 2022-09-10 14:18 | ECHO ---
HEIGHT: 5 ft 10 in WEIGHT: 241 lb 0 oz DATE OF STUDY: 09/10/[address]: Justo Mauricio 2-DIMENSIONAL: YES M.MODE: YES DOPPLER: YES COLOR FLOW: YES TDS: NO PORTABLE: YES DEFINITY: NO BUBBLE STUDY: NO DIAGNOSIS: NEAR SYNCOPE, PALPITATIONS CARDIAC HISTORY: CATHERIZATION: NO SURGERY: NO PROSTHETIC VALVE: NO PACEMAKER: NO MEASUREMENTS (cm) DIASTOLIC (NORMALS) SYSTOLIC (NORMALS) IVSd 1.3 (0.6-1.2) LA Diam 2.8 (1.9-4.0) LVEF 68% LVIDd 4.7 (3.5-5.7) LVIDs 2.9 (2.0-3.5) %FS 38% LVPWd 1.3 (0.6-1.2) Ao Diam 2.7 (2.0-3.7) 2 DIMENSIONAL ASSESSMENT: RIGHT ATRIUM: NORMAL LEFT ATRIUM: NORMAL RIGHT VENTRICLE: NORMAL LEFT VENTRICLE: LVH TRICUSPID VALVE: MILD TR MITRAL VALVE: MILD MR PULMONIC VALVE: NORMAL AORTIC VALVE: NORMAL PERICARDIAL EFFUSION: NONE AORTIC ROOT: NORMAL LEFT VENTRICULAR WALL MOTION: NORMAL DOPPLER/COLOR FLOW: SEE BELOW COMMENTS: 1. NORMAL LEFT VENTRICULAR EJECTION FRACTION 60-65% WITH NORMAL WALL MOTION. 2. GRADE I DIASTOLIC DYSFUNCTION. 3. MILD MITRAL REGURGITATION. 4. MILD TRICUSPID REGURGITATION. 5. MILD CONCENTRIC LEFT VENTRICULAR HYPERTROPHY. TECHNOLOGIST: Melquiades DOAN
--- NOTE | 2022-09-10 16:09 | P.DS ---
Admission Date: 09/08/22 Discharge Date: 09/10/22 Disposition: D/C Home Medical Screening Onl Reason for Admission: PALPITATIONS, DIZZINESS - Problems (1) Palpitation Status: Acute (2) Dizziness Status: Acute (3) Coronary artery disease due to type 2 diabetes mellitus Status: Acute Brief History of Present Illness: JEFF HAS DM AND CAD BY HISTORY. HE HAS TWO DAYS OF PALPITATIONS OFF AND ON AND DIZZINESS. HE HAS NO CHEST PAIN OR DYSPNEA. I ORDERED MRA OF BRAIN AND CAROTID DOPPLER THAT ARE NEGATIVE. DR. ROBLES WANTS TO DO CATH IN AM. Hospital Course: Jeff came for palpitations and dizziness. He had no [place]. Ekg is okay. Stress test showed old fixed defect. He did wll on small dose of B johnny. He fu in office. Vital Signs/Physical Exam: Temp Pulse Resp BP Pulse Ox 97.6 F 70 16 161/79 H 96 09/10/22 12:00 09/10/22 12:00 09/10/22 12:00 09/10/22 12:00 09/10/22 12:00 Laboratory Data at Discharge: WBC 6.70 thou/uL (4.3-10.9) 09/08/22 22:05 Hgb 15.4 g/dL (13.6-17.9) 09/08/22 22:05 Hct 44.9 % (39.6-49.0) 09/08/22 22:05 Plt Count 198 thou/uL (152-406) 09/08/22 22:05 PT 10.9 SECONDS (9.5-12.5) 09/08/22 22:05 INR 0.99 09/08/22 22:05 Sodium 139 mEq/L (136-145) 09/09/22 04:28 Potassium 5.0 mEq/L (3.5-5.1) D 09/09/22 04:28 BUN 13 mg/dL (7-18) 09/09/22 04:28 Creatinine 0.85 mg/dL (0.70-1.30) 09/09/22 04:28 Glucose 172 mg/dL (74-106) H 09/09/22 04:28 Magnesium 2.5 mg/dL (1.6-2.4) H 09/08/22 22:05 Total Bilirubin 0.3 mg/dL (0.2-1.0) 09/08/22 22:05 AST 21 U/L (15-37) 09/08/22 22:05 ALT 51 U/L (16-61) 09/08/22 22:05 Alkaline Phosphatase 113 U/L (45-117) 09/08/22 22:05 Home Medications: Acetaminophen [Tylenol Extra Strength] 500 mg PO BID PRN 09/09/22 Losartan Potassium 100 mg PO DAILY 09/09/22 Metformin HCl 2 tab PO DAILY AT SUPPER 09/09/22 Rosuvastatin Calcium 10 mg PO DAILY 09/09/22 Followup: Pawan Coy MD [Primary Care Provider] -
--- NOTE | 2022-09-10 16:21 | PN ---
Date of Progress Note: 09/10/2022 Subjective: Seen by bedside. Review of Systems: No chest pain. No shortness of breath, nausea, vomiting, diarrhea. No rhythm abnormalities were rec orded. All other systems reviewed, they were negative. Physical Examination: Vital Signs: Reviewed. Head and Neck: Pupils are equal, reactive to light. Intact eye movements. No JVD. No cervical lym phadenopathy. Neck is supple. Thyroid is not enlarged. Lungs: Clear to auscultation bilaterally. No rhonchi, wheezing, or crackles. No accessory muscle u se. Heart: Regular rate and rhythm. No extra sounds. Abdomen: Soft, nontender. Bowel sounds positive. No organomegaly. No masses or hernia. No rigidi ty or rebound. Extremities: No edema, clubbing, or cyanosis. Intact pulses. Skin: No rash. Neurologic: Alert, awake, oriented x3. No acute focal deficits appreciated. Investigations: Labs were reviewed. BUN 13, creatinine 0.85, and hemoglobin 15.4, and a Lexiscan nu clear stress test was negative for ischemia. Assessment/recommendations: 1.Chest pain with negative Lexiscan stress test. Patient was short and on echo, has normal ejection fraction. 2.Palpitations. No arrhythmias were noted. Continue bisoprolol and recommend outpatient monitor. 3.Dyslipidemia. Continue statin. Cardiology will sign off on the case. SR/MODL Voice ID: [id number] Report ID: [id number]
== END 2022-09-10 15:00 | disposition home or self-care (01) | DRG 149 ==
LOC: ER 21:47 → ERHOLD 23:21 → 2ND 09-09 03:00
PROVIDERS: ADMIT Internal Medicine; ATTEND Internal Medicine
DX: R42 Dizziness and giddiness (principal); E11.9 Type 2 diabetes mellitus without complications; I10 Essential (primary) hypertension; I48.0 Paroxysmal atrial fibrillation; E78.00 Pure hypercholesterolemia, unspecified; R00.2 Palpitations; I25.10 Atherosclerotic heart disease of native coronary artery without angina pectoris; R07.9 Chest pain, unspecified; Z79.84 Long term (current) use of oral hypoglycemic drugs; Z79.899 Other long term (current) drug therapy; Z87.891 Personal history of nicotine dependence
CPT/HCPCS: 36415; 70544; 71045; 78452; 80048; 80076; 81003; 82947; 83735; 83880; 84484; 85025; 85610; 93005; 93017; 93306; 93880; 99285; A9500; J1815; J2785

== ENCOUNTER 2024-02-13 18:30 | Emergency (ER) | payer OTHER, MEDICARE ==
[2024-02-13] MEDS ORDERED: dexAMETHasone 10 MG/ML VIAL ONE (23:32)
[2024-02-13] MEDS ORDERED: HYDROCODONE/APAP 5/325 MG TAB ONE (23:33)
[2024-02-13] MEDS ORDERED: KETOROLAC 30 MG/ML INJ ONE (23:33)
--- NOTE | 2024-02-14 00:30 | ER ---
Nurse's Notes [facility] Name: Jeff Medeiros Age: 73 yrs Sex: Male : 1950 Arrival Date: 02/13/2024 Time: 18:30 Bed 12 Private MD: Diagnosis: Sciatica, right side Presentation: 02/12 18:32 Chief complaint: EMS states: hip pain, "pinched nerve" since November after moving heavy ss equipment. Pt currently taking Robaxin and Gabapentin, but the pain became worse this morning. Coronavirus screen: Client denies travel out of the [place] in the last 14 days. Ebola Screen: Patient denies exposure to infectious person. Patient denies travel to an Ebola-affected area in the 21 days before illness onset. Initial Sepsis Screen: Does the patient meet any 2 criteria? No. Patient's initial sepsis screen is negative. Does the patient have a suspected source of infection? No. Patient's initial sepsis screen is negative. Risk Assessment: Do you want to hurt yourself or someone else? Patient reports no desire to harm self or others. Onset of symptoms was November 2023. 18:32 Method Of Arrival: EMS: [facility] 18:32 Acuity: SHARON 4 18:33 Care prior to arrival: IV initiated. 18 GA, in the right antecubital area. Triage Assessment: 19:18 General: Appears in no apparent distress. uncomfortable, Behavior is calm, cooperative. cm10 Neuro: No deficits noted. Level of Consciousness is awake, alert, obeys commands, Oriented to person, place, time, situation, Appropriate for age. Respiratory: No deficits noted. Airway is patent Respiratory effort is even, unlabored, Respiratory pattern is regular, symmetrical. Historical: - Allergies: 18:33 tramadol; ss - PMHx: 18:33 Diabetes - NIDDM; High Cholesterol; Hypertension; ss - PSHx: 18:33 hernia repair; knee; rotator cuff; ss - Immunization history:: Adult Immunizations unknown. - Infectious Disease History:: Denies. - Social history:: Smoking status: unknown. Screenin:00 [facility] ED Fall Risk Assessment (Adult) History of falling in the last 3 months, vc1 including since admission No falls in past 3 months (0 pts) Confusion or Disorientation No (0 pts) Intoxicated or Sedated No (0 pts) Impaired Gait Yes (1 pt) Mobility Assist Device Used Yes (1 pt) Altered Elimination No (0 pt) Score/Fall Risk Level 0 - 2 = Low Risk Oriented to surroundings, Maintained a safe environment, Educated pt \\T\\ family on fall prevention, incl call for assistance when getting out of bed. Abuse screen: Denies threats or abuse. Nutritional screening: No deficits noted. Tuberculosis screening: No symptoms or risk factors identified. Vital Signs: 19:18 BP 136 / 87; Pulse 53; Resp 16; Temp 97.5(TE); Pulse Ox 95% on R/A; Weight 108.86 kg; cm10 Height 13 ft. 4 in. ; Pain 10/10; 19:18 Body Mass Index 6.59 (108.86 kg, 406.4 cm) cm10 19:18 Pain Scale: Adult cm10 ED Course: 18:32 Patient arrived in ED. ss 18:33 Triage completed. ss 19:18 Arm band placed on right wrist. cm10 19:21 Logan Blue FNP-C is PHCP. dr5 19:21 Travon Tristan MD is Attending Physician. dr5 23:00 Patient has correct armband on for positive identification. Bed in low position. Call vc1 light in reach. Pulse ox on. NIBP on. 02/13 00:40 No provider procedures requiring assistance completed. IV discontinued, intact, vc1 bleeding controlled, No redness/swelling at site. Pressure dressing applied. 00:42 Provided Education on: f/u with PCP. vc1 Administered Medications: 02/12 23:40 Drug: Ketorolac IVP 15 mg IVP once Route: IVP; Site: right antecubital; vc1 23:40 Drug: HYDROcodone-acetaminophen PO 5 mg-325 mg 2 tabs PO once Route: PO; vc1 23:40 Drug: Dexamethasone IVP 10 mg IVP once; (not to exceed 40 mg) Route: IVP; Site: right vc1 antecubital; Medication: 02/13 00:41 VIS not applicable for this client. vc1 Outcome: 00:30 Discharge ordered by . dr5 00:41 Condition: good vc1 00:41 Discharge instructions given to patient, Instructed on discharge instructions, follow up and referral plans. medication usage, Demonstrated understanding of instructions, follow-up care, medications, Prescriptions given X 2, 00:42 Discharged to home ambulatory, with significant other, vc1 00:43 Patient left the ED. vc1 Signatures: Amalia Crandall, RN RN ss Gina Serrato RN RN vc1 Tatiana Davis, RN RN cm10 Logan Blue, DRYWALL APPLICATION SUPERVISOR-C DRYWALL APPLICATION SUPERVISOR-Cdr5
--- NOTE | 2024-02-14 00:31 | EDPHYS ---
Physician Documentation [facility] Name: Jeff Medeiros Age: 73 yrs Sex: Male : 1950 Arrival Date: 02/13/2024 Time: 18:30 Bed 12 Private MD: ED Physician Travon Tristan HPI: 02/12 23:49 This 73 yrs old Male presents to ER via EMS with complaints of Hip Pain. dr5 23:49 The patient or guardian reports pain. sustained from a chronic condition, degenerative dr5 joint disease, an old injury. Patient 73-year-old male with history of hypertension, hyperlipidemia, diabetes coming in with right hip pain consistent with pinched nerve that his regular doctor has been working with him on. Patient has been taking methocarbamol and gabapentin to help with pinched nerve. Patient denies any new injury, numbness or tingling to bilateral lower legs, perirectal numbness, bowel or bladder incontinence, fever, or trauma. Patient states that he was sitting on the porch for 20 minutes and the pain became excruciating.. Historical: - Allergies: 18:33 tramadol; ss - PMHx: 18:33 Diabetes - NIDDM; High Cholesterol; Hypertension; ss - PSHx: 18:33 hernia repair; knee; rotator cuff; ss - Immunization history:: Adult Immunizations unknown. - Infectious Disease History:: Denies. - Social history:: Smoking status: unknown. ROS: 23:49 Constitutional: as per hpi dr5 Exam: 23:49 Constitutional: This is a well developed, well nourished patient who is awake, alert, dr5 and in no acute distress. Head/Face: Normocephalic, atraumatic. Eyes: Pupils equal round and reactive to light, extra-ocular motions intact. Lids and lashes normal. Conjunctiva and sclera are non-icteric and not injected. Cornea within normal limits. Periorbital areas with no swelling, redness, or edema. ENT: Nares patent. No nasal discharge, no septal abnormalities noted. Tympanic membranes are normal and external auditory canals are clear. Oropharynx with no redness, swelling, or masses, exudates, or evidence of obstruction, uvula midline. Mucous membranes moist. Chest/axilla: Normal chest wall appearance and motion. Nontender with no deformity. No lesions are appreciated. Cardiovascular: Regular rate and rhythm with a normal S1 and S2. Normal PMI, no JVD. No pulse deficits. Respiratory: Lungs have equal breath sounds bilaterally, clear to auscultation. No rales, rhonchi or wheezes noted. No increased work of breathing, no retractions or nasal flaring. 23:49 Skin: Warm, dry with normal turgor. Normal color with no rashes, no lesions, and no evidence of cellulitis. Neuro: Awake and alert, GCS 15, oriented to person, place, time, and situation. Cranial nerves II-XII grossly intact. Motor strength 5/5 in all extremities. Sensory grossly intact. Cerebellar exam normal. Normal gait. 23:49 Back: pain, that is moderate, of the right low back, ROM is normal, normal spinal alignment noted, CVA tenderness, is absent, vertebral tenderness, is not appreciated, Straight leg raises: right lower extremity illicits pain, at 45 degrees, Vital Signs: 19:18 BP 136 / 87; Pulse 53; Resp 16; Temp 97.5(TE); Pulse Ox 95% on R/A; Weight 108.86 kg; cm10 Height 13 ft. 4 in. ; Pain 10/10; 19:18 Body Mass Index 6.59 (108.86 kg, 406.4 cm) cm10 19:18 Pain Scale: Adult cm10 MDM: 19:21 Medical Screening Exam initiated dr5 02/13 00:37 Differential diagnosis: arthritis, strain, Sciatic Nerve Pain. Data reviewed: vital dr5 signs, nurses notes. Care significantly affected by the following chronic conditions: Diabetes, Hypertension, Hyperlipidemia. Care significantly affected by the following Social Determinants of Health: Poor access to healthcare and/or lack of insurance, Poor access to transportation, Problems related to employment. 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 Medication response: Toradol markedly relieved the patient's pain. ED course: Pt is feeling better at demonstration of medications. Will give patient a short course of [place] and cyclobenzaprine to take only as needed until patient can get to appointment on . Patient reports he is feeling much better. All questions answered. Patient is agreeable to plan.. 09:16 ED course: Triplicate Rx: Issued - 02/14/2024 CTRL: [id number] Johnny Qty #12 Std bo1 SIG. Administered Medications: 02/12 23:40 Drug: Ketorolac IVP 15 mg IVP once Route: IVP; Site: right antecubital; vc1 23:40 Drug: HYDROcodone-acetaminophen PO 5 mg-325 mg 2 tabs PO once Route: PO; vc1 23:40 Drug: Dexamethasone IVP 10 mg IVP once; (not to exceed 40 mg) Route: IVP; Site: right vc1 antecubital; Disposition Summary: 02/14/24 00:30 Discharge Ordered Notes: Location: Home dr5 Condition: Stable dr5 Diagnosis - Sciatica, right side dr5 Followup: dr5 - With: Emergency Department - When: As needed - Reason: Worsening of condition Followup: dr5 - With: Private Physician - When: 1 - 2 days - Reason: Recheck today's complaints, Continuance of care, Re-evaluation by your physician Discharge Instructions: - Discharge Summary Sheet dr5 - Sciatica dr5 - Back Exercises, [id number] dr5 - Radicular Pain dr5 Forms: - Medication Reconciliation Form dr5 - Prescription Opioid Use dr5 - Patient Portal Instructions dr5 - Leadership Thank You Letter dr5 Prescriptions: - Cyclobenzaprine 10 mg Oral Tablet - take 1 tablet ORAL route every 8 hours As needed; 30 tablet; Refills: 0, dr5 Product Selection Permitted - Hydrocodone-Acetaminophen 5-325 mg Oral Tablet - take 1 tablet ORAL route every 6 hours As needed; 12 tablet; Refills: 0, dr5 Product Selection Permitted Addendum: 02/15/2024 06:44 Co-signature as Attending Physician, Travon Tristan MD I agree with the assessment and c cole plan of care. Signatures: Travon Tristan MD MD cha Blanchard, Shelby, RN RN ss Gina Serrato RN RN vc1 Jorge Sagastume MD MD bo1 Logan Blue, RESEARCH ELECTRICIAN-C RESEARCH ELECTRICIAN-Cdr5
[2024-02-14 08:33] VITALS: BP 136/87; TEMP 97.5; O2SAT 95
== END 2024-02-14 00:43 | disposition home or self-care (01) ==
LOC: ER 18:30
DX: M54.31 Sciatica, right side (principal)
CPT/HCPCS: 96375; 96374; 99284; J1100